=== PATIENT | male | born 1945 | race African-American/Black ===

== ENCOUNTER 2018-05-22 15:24 | Inpatient (IN) | payer MEDICARE ==
[2018-05-22 16:22] LABS: #Lymphocytes 0.8 thou/uL (1.20-3.40); #Monocytes 0.1 thou/uL (0.11-0.59); #Neutrophils 7.5 thou/uL (1.40-6.50); %Basophils 0.3 % (0.0-1.0); %Eosinophils 0.5 % (0.0-10.0); %Lymphocytes 9.1 % (21.0-51.0); %Monocytes 1.5 % (0.0-10.0); %Neutrophils 88.6 % (42.0-75.0); Hemoglobin 12.2 g/dL (14.0-18.0); Mean Corpuscular HGB CONC 31.4 g/dL (32.0-36.0); Mean Corpuscular Hemoglobin 28.3 pg (27.0-31.0); Mean Corpuscular Volume 90.2 fL (78.0-98.0); Mean Platelet Volume 9.6 fL (7.4-10.4); Platelet Count 192 thou/uL (130-400); RBC Distribution Width 14.5 % (11.5-14.5); White Blood Cell (WBC) Count 8.5 thou/uL (4.8-10.8)
--- NOTE | 2018-05-22 16:26 | RAD ---
F2 views chest. HISTORY: Dyspnea. PA and lateral views of the chest is obtained on 05/22/2018. Comparison made to an AP view of the ches t from earlier in the day. Cardiomegaly seen. Pulmonary vascular congestion seen. Calcified aorta is seen. The lungs are well ae rated. No evidence of acute intrathoracic abnormality seen. IMPRESSION: Cardiomegaly and pulmonary vascular congestion. Findings compatible with congestive heart failure.
[2018-05-22 16:46] LABS: ALT (SGPT) 13 U/L (8-55); AST (SGOT) 16 U/L (5-34); Albumin 3.3 g/dL (3.4-4.8); Alkaline Phosphatase 149 U/L (40-150); Anion Gap 12 mmol/L (10-20); BUN (Urea Nitrogen) 29 mg/dL (8.4-25.7); Bilirubin, Total 0.5 mg/dL (0.2-1.2); Calc. Creatinine Clearance 0 mL/min (70-130); Calcium 7.9 mg/dL (7.8-10.44); Carbon Dioxide 32 mmol/L (23-31); Chloride 102 mmol/L (98-107); Estimated GFR-MDRD 26; Globulin 3.9 g/dL (2.4-3.5); Glucose 157 mg/dL (83-110); Potassium 4.9 mmol/L (3.5-5.1); Protein, Total 7.2 g/dL (5.8-8.1); Sodium 141 mmol/L (136-145)
[2018-05-22] MEDS ORDERED: Nitroglycerin 2% Ointment 1 INCH/1 GM Packet ONE (18:24)
--- NOTE | 2018-05-22 19:25 | HP ---
PRIMARY CARE PHYSICIAN: Carina Asencio MD CHIEF COMPLAINT: Shortness of breath and cough. HISTORY OF PRESENT ILLNESS: This is a 72-year-old Afro-Namibian male with a known history of obesity, obstructive sleep apnea, and COPD, resulting in right-sided heart failure and diastolic congestive heart failure, also with diabetes mellitus type 2. The patient reports that he wanted to try getting off his medicines 3 months ago. Says that he would get shakiness if he took some, but he is not sure, which 1 was causing the shakiness. So, he stopped taking them and states he is okay for awhile. For the last week or 2, he has had increased shortness of breath and cough. He was using his nebulizer at home; however, the stem-line broke, and so he has not had any medicines at all for the last couple of weeks. The patient was seen in the [place] [facility]. There, he was found to be tachycardic and with saturations dropping to the low 90s with some tachypnea, so he is put on 2 L of oxygen and brought his oxygen up to near 100. His blood pressure was significantly elevated as well. The patient was noted to have wheezing and significant lower extremity edema. Brain natriuretic peptide was significantly elevated above his previous and his creatinine was also elevated up into the 3s. He was given Lasix, Solu-Medrol, and DuoNeb there. He is feeling better. He also had a dose of Lovenox due to the persistent tachycardia, presumably due to concern for possible PE, though no D-dimer was ever done. The patient was then transferred here for admission. PAST MEDICAL HISTORY: 1. Diabetes mellitus type 2, on oral hypoglycemics only. 2. Diastolic congestive heart failure with right-sided failure from pulmonary hypertension. 3. Hyperlipidemia. 4. Hypertension. 5. Chronic obstructive pulmonary disease. 6. Obstructive sleep apnea. 7. Chronic renal failure previously stage 2, though we do not have recent labs until his significant elevations here. 8. Gout. 9. Chronic respiratory failure with hypoxemia on home O2 that he uses just as needed. 10. Benign prostatic hyperplasia. 11. Longstanding history of noncompliance. PAST SURGICAL HISTORY: Cholecystectomy in 2010 and hernia repair in 2009 and 2010. SOCIAL HISTORY: The patient is a common-law . He smokes 1 pack every 2 to 3 days. Has smoked for many decades. He reports that he used to drink a lot of alcohol, was stopped back in the 1980s. Denies any recent use. No illicit drug use. FAMILY HISTORY: Mother had pulmonary disease. No other known family history. ALLERGIES: NO KNOWN DRUG ALLERGIES. CURRENT MEDICATIONS: None. REVIEW OF SYSTEMS: CONSTITUTIONAL: No fevers. He does get intermittent chills, but this is chronic for him. EYES: No double vision or blurred vision. ENT: He has had a little drainage for the last day. No nasal congestion. No sore throat. CARDIOVASCULAR: No chest pain. No palpitations or racing heart. PULMONARY: See HPI. GASTROINTESTINAL: No abdominal pain. No nausea or vomiting. No diarrhea or constipation. GENITOURINARY: No dysuria or hematuria. MUSCULOSKELETAL: No muscle aches or joint pains. SKIN: No rashes or lesions. NEUROLOGIC: No numbness, tingling, or focal weakness. PHYSICAL EXAMINATION: VITAL SIGNS: Blood pressure 177/115, pulse 120, respirations 20, temperature 97.9, and O2 saturation 98% on 2 L of oxygen. GENERAL: This is a well-developed, obese Afro-Namibian male, in no acute distress. HEENT: Pupils are equal, round, and reactive to light. Oropharynx is clear without lesions, erythema, or exudate. NECK: Supple. No lymphadenopathy. No thyroid nodules or enlargement. He does have some JVD. HEART: Regular rhythm. He is tachycardic. No murmurs. LUNGS: He has some scattered wheezes. No crackles or air movement throughout, but no increased work of breathing. ABDOMEN: Soft, obese, and nontender to palpation. Normoactive bowel sounds. No hepatosplenomegaly or other masses. EXTREMITIES: No clubbing or cyanosis. He does have 3+ pitting edema to bilateral lower extremities with chronic edema changes to the skin. SKIN: No other rashes or lesions noted. NEUROLOGIC: He has intact strength and sensation in all extremities. No facial droop. PSYCHIATRIC: Alert and oriented x3. Normal mood and affect. LABORATORY DATA: CBC, grossly normal with no leukocytosis. Complete metabolic panel notable for carbon dioxide of 32, BUN of 29, and creatinine of 2.93 down from 3.02 at the outside emergency room, where he got the Lasix. Most recent number we have before that is in 2017, where it was 2.5 and before that was in the 1.6 range. Glucose was 157. Albumin was 3.3. The rest of the CMP was normal. Cardiac marker sets negative x2. Brain natriuretic peptide 830. EKG, I did review the EKG done in the emergency room, it does show sinus tachycardia with first-degree AV block. Chest x-ray, I did review his chest x-rays done in the emergency room both in [place] and in here, the patient does have an enlarged heart and increased pulmonary vascular markings. No focal infiltrates. No diffuse pulmonary edema. ASSESSMENT AND PLAN: 1. Acute on chronic hypoxic respiratory failure, likely a mixture of chronic obstructive pulmonary disease and congestive heart failure. 2. Acute exacerbation of chronic obstructive pulmonary disease. We will continue patient's steroids, nebulizers, and we will give 5 days of azithromycin. Also encouraged the patient to have family bring his continuous positive airway pressure machine up, so that we can look at it. He has not used it for a while due to that was blowing water into his nose. We will look at it and see we get him using that properly here. We will consult Pulmonology. 3. Acute exacerbation of diastolic congestive heart failure. We will continue Lasix. We will do 40 mg IV twice a day. We will keep a close eye on creatinine as we diurese him. Put him on fluid restriction and salt restricted diet. We will also get an echocardiogram as he has not had 1 in the system in a quite few years and we will have Cardiology consult on his case. 4. Sinus tachycardia, uncertain source as the patient does not appear to be in any pain. He is not hypoxic currently. It could be due to his congestive heart failure exacerbation; however, I am concerned about the possibility of a pulmonary embolism. He has already got a full-dose of Lovenox. Given his creatinine, we may need to switch him to another blood thinner, if he does need to be on chronic anticoagulation. However, for now, I will get a nuclear medicine perfusion scan to see if there is any evidence of pulmonary embolism. 5. Diabetes mellitus type 2, currently not with severely elevated blood sugars, but I expect his blood sugar to go up with the steroids. I will have him restart his Amaryl, which he has been on in the past and we will put him on mild sliding scale, can always increase that if his blood sugars jumped significantly. 6. Acute on chronic renal failure. Uncertain of the patient's baseline, so we can expect any improvement from this during this hospitalization, but I will have Nephrology come and see him. 7. Hypertension, uncontrolled. Due to the patient's congestive heart failure exacerbation along with severe hypertension, I will go ahead and have him put a nitroglycerin paste on his chest wall here in the emergency room. We will restart his hydralazine and clonidine that he had previously been on and we will monitor his blood pressure closely here. We will avoid angiotensin-converting enzyme inhibitors and angiotensin receptor blockers at this time until his creatinine stabilizes and then, we will have Nephrology assess whether he should have those reintroduced at all. 8. Gastrointestinal prophylaxis. Put the patient on Pepcid twice a day. 9. Code status. I did discuss with the patient. He is a full code. Should he be incapacitated, his would be his medical decision maker, her name is Malik Rodríguezl. Of note, they are common-law marriage, so I will have Palliative Care consult with him and assist him with filling out any medical [id number] paperwork that he needs. Job ID: [id number]
[2018-05-22] MEDS ORDERED: Ondansetron ODT 4 MG TAB SL PRN (19:51)
[2018-05-22] MEDS ORDERED: Ondansetron PF 4 MG/2 ML Vial IVP PRN ×2 (19:51→20:02)
[2018-05-22] MEDS ORDERED: Acetaminophen 325 MG TAB PO PRN ×2 (19:51→20:02)
[2018-05-22 19:53] LABS: Troponin I Less than 0.010 ng/mL (< 0.028)
[2018-05-22] MEDS ORDERED: Ondansetron ODT 4 MG TAB PO PRN (20:02)
[2018-05-22] MEDS ORDERED: Acetaminophen 650 MG Suppository PR PRN (20:02)
[2018-05-22] MEDS ORDERED: HumaLOG 300 UNITS/3 ML VIAL SC PRN (20:02)
[2018-05-22] MEDS ORDERED: Senokot S 8.6-50 MG TAB PO PRN (20:02)
[2018-05-22] MEDS ORDERED: Guaifenesin DM 100-10/5 ML UDCUP PO PRN (20:02)
[2018-05-22] MEDS ORDERED: Diltiazem 125 MG in Sodium Chloride 0.9% 100 ML IVPB SCH (20:30)
[2018-05-22] MEDS: Nicotine 14 MG PATCH TD SCH (21:09)
[2018-05-22] MEDS: Heparin 5,000 UNITS/ML VIAL SC SCH (21:10)
[2018-05-22] MEDS: Famotidine 20 MG TAB PO SCH (21:11)
[2018-05-22] MEDS: Azithromycin 500 MG in Sodium Chloride 0.9% 250 ML 250 ML IVPB SCH (21:23)
[2018-05-22] MEDS: methylPREDNISolone Sod Succ 40 MG VIAL IVP SCH (21:25)
[2018-05-22] MEDS: Bacteriostatic Water 30 ML VIAL FS PRN (21:25)
[2018-05-22] MEDS: cloNIDine 0.3 MG TAB PO SCH (22:04)
[2018-05-22] MEDS: hydrALAZINE 25 MG TAB PO SCH (22:04)
[2018-05-22 22:57] LABS: Troponin I 0.019 ng/mL (< 0.028)
[2018-05-23] MEDS: methylPREDNISolone Sod Succ 40 MG VIAL IVP SCH ×4 (05:39→21:54)
[2018-05-23] MEDS: Furosemide 40 MG/4 ML VIAL SLOW IVP SCH ×2 (05:40→14:42)
[2018-05-23 05:44] LABS: #Lymphocytes 0.9 thou/uL (1.20-3.40); #Monocytes 0.1 thou/uL (0.11-0.59); #Neutrophils 6.5 thou/uL (1.40-6.50); %Basophils 0.4 % (0.0-1.0); %Lymphocytes 11.8 % (21.0-51.0); %Monocytes 1.4 % (0.0-10.0); %Neutrophils 86.4 % (42.0-75.0); Hemoglobin 11.6 g/dL (14.0-18.0); Mean Corpuscular HGB CONC 31.8 g/dL (32.0-36.0); Mean Corpuscular Hemoglobin 28.2 pg (27.0-31.0); Mean Corpuscular Volume 88.7 fL (78.0-98.0); Mean Platelet Volume 9.6 fL (7.4-10.4); Platelet Count 206 thou/uL (130-400); RBC Distribution Width 14.4 % (11.5-14.5); Red Blood Cell (RBC) Count 4.12 mill/uL (4.70-6.10); White Blood Cell (WBC) Count 7.5 thou/uL (4.8-10.8)
[2018-05-23 06:02] LABS: Anion Gap 15 mmol/L (10-20); BUN (Urea Nitrogen) 36 mg/dL (8.4-25.7); Calc. Creatinine Clearance 33 mL/min (70-130); Calcium 8.1 mg/dL (7.8-10.44); Carbon Dioxide 29 mmol/L (23-31); Chloride 100 mmol/L (98-107); Estimated GFR-MDRD 25; Glucose 214 mg/dL (83-110); Potassium 5.2 mmol/L (3.5-5.1); Sodium 139 mmol/L (136-145)
--- NOTE | 2018-05-23 07:58 | CON ---
DATE OF CONSULTATION: 05/23/2018 REASON FOR CONSULTATION: COPD exacerbation. HISTORY OF PRESENT ILLNESS: This is a 72-year-old male, who has been to this hospital several times in the past. Over the last several days, he has been developing increasing shortness of breath. He apparently stopped taking his medicine several months ago because he was concerned about leg swelling. He has also stopped using his CPAP at home because he says it causes moisture to be deposited in his nose. He does use home oxygen and he does use inhalers. He is also smoking 1 pack per day. His symptoms are mainly been shortness of breath, wheezing, and leg swelling. PAST MEDICAL HISTORY: 1. Chronic obstructive pulmonary disease. 2. LINDSEY. 3. Diastolic heart failure. 4. Cor pulmonale. 5. Diabetes mellitus type 2. 6. Chronic renal insufficiency. 7. Gout. 8. Benign prostatic hypertrophy. PAST SURGICAL HISTORY: Cholecystectomy and hernia repair. SOCIAL HISTORY: One pack per day smoker. Has smoked almost all of his adult life. Stopped drinking alcohol in the . Does not use illicit drugs. FAMILY MEDICAL HISTORY: Remarkable for COPD in his mother. ALLERGIES: NONE. MEDICATIONS: Prior to admission he used the home oxygen, but I do not think he has been using any other type of medications. REVIEW OF SYSTEMS: He denies any fever, chills, nausea, vomiting, chest pain, hematemesis, melena, hematochezia, hematuria, or dysuria. Remainder of 12-point review of systems are negative. PHYSICAL EXAMINATION: VITAL SIGNS: Temperature 97.5, pulse 111, respirations 20, O2 saturation 95% and blood pressure 136/66. GENERAL: He is easily awakened, alert, oriented, and in no distress. HEENT: Sclerae anicteric. Pupils reactive. Oropharynx, class 4 Mallampati airway with large hypertrophied tongue NECK: No adenopathy, JVD or bruits. LUNGS: He has diffuse expiratory wheezing bilaterally predominantly over the lower aspect of his lungs. CARDIAC: S1-S2, irregularly irregular and slightly tachycardic. ABDOMEN: Soft, obese, nontender, and nondistended. Liver and spleen are not palpable. EXTREMITIES: He has 3+ edema from his knees downward bilaterally. NEUROLOGICAL: He moves all 4 extremities without difficulty. Sensation is fully intact throughout. SKIN: Shows no obvious lesions other than the swelling. LABORATORY DATA: White blood cell count 7.5, hematocrit 36.6, and platelet count 206. Sodium 139, potassium 5.2, chloride 100, CO2 of 29, BUN 36, creatinine 3.1, and glucose 214. BNP level is 830. IMAGING DATA: His chest x-ray shows hyperinflation, right-sided heart enlargement, prominent jonah. ASSESSMENT: 1. Chronic obstructive pulmonary disease with exacerbation. 2. Tobacco abuse. 3. Atrial fibrillation. 4. Question of concurrent congestive heart failure. 5. Cor pulmonale. 6. Obstructive sleep apnea. 7. Medical noncompliance. RECOMMENDATIONS: 1. I agree with the steroids, breathing treatments, and antibiotics for COPD exacerbation. 2. I agree with diuretics for the peripheral edema. 3. Primary care team has ordered a ventilation-perfusion scan to rule out pulmonary embolism. 4. I have changed his breathing treatments to be scheduled rather than p.r.n. 5. I will be happy to follow this patient with you. Job ID: [id number]
[2018-05-23] MEDS ORDERED: Aspirin 81 mg Enteric Coated Tablet PO SCH (09:00)
[2018-05-23] MEDS ORDERED: Prevnar 13-Val Conj/PF 0.5 ML SYRINGE IM ONE (09:00)
[2018-05-23] MEDS: hydrALAZINE 25 MG TAB PO SCH ×3 (09:00→21:39)
[2018-05-23] MEDS: Glimepiride 4 MG TAB PO SCH ×2 (09:00→17:03)
[2018-05-23] MEDS: Heparin 5,000 UNITS/ML VIAL SC SCH ×3 (09:01→21:40)
--- NOTE | 2018-05-23 10:43 | NM ---
FVQ SCAN: HISTORY: Dyspnea, exacerbation of CHF TECHNIQUE: A ventilation/perfusion scan was performed using 8.6 mCi xenon-133 by inhalation for the ventilation study followed by the intravenous administration of 6.3 mCi technetium 99m-MAA for the perfusion scan . CORRELATION: Chest radiograph from previous evening. FINDINGS: Mild inhomogeneity is noted in the tracer distribution to the lung mcgrath bilaterally on ventilation and perfusion scans. No mismatched pleural-based, wedge-shaped, segmental or subsegmental perfusion d efects are identified. There is tracer retention on the washout phase of the ventilation scan, compat ible with COPD. IMPRESSION: Low probably for pulmonary embolism.
[2018-05-23] MEDS: cloNIDine 0.3 MG TAB PO SCH (11:03)
--- NOTE | 2018-05-23 14:51 | CON ---
DATE OF CONSULTATION: 05/23/2018 REASON FOR CONSULTATION: Diastolic congestive heart failure. HISTORY OF PRESENT ILLNESS: Mr. Tripp is a pleasant 72-year-old gentleman previously seen and evaluated in the past by Dr. Wells, now comes in with shortness of breath and wheezing. Mr. Tripp does have a long history of obstructive lung disease. Unfortunately, he continues to smoke over the many years. He also has history of hypertension. The patient and family member are in the room. They said he has been gradually retaining fluid, having worse and worse trouble breathing. He takes a diuretic at home, but said "is not working and it seems to make me nauseated," has not been taking his medicines on a regular basis. Apparently, came to the emergency room with increasing swelling of his lower extremities and increasing difficulty breathing. No chest pain. The patient did have a stress test done in 2013 in our office, which did not show ischemia. PAST MEDICAL HISTORY: 1. History of hypertension, not well controlled. 2. Hyperlipidemia. 3. Diastolic heart failure. 4. COPD. 5. Obstructive sleep apnea. 6. Renal failure. 7. Benign prostatic hypertrophy. 8. Diabetes, on oral hypoglycemics. PAST SURGICAL HISTORY: Previous cholecystectomy. SOCIAL HISTORY: He has common-law marriage. Smokes one pack cigarettes every two days. He said he smoked for many decades. Used to drink significant alcohol, stopped in the . FAMILY HISTORY: Mother with pulmonary disease. ALLERGIES: NONE KNOWN. MEDICATIONS: Not taken any prior to admission. REVIEW OF SYSTEMS: CONSTITUTIONAL: Positive for weakness or fatigue. Vision, no changes. Hearing, no changes. PULMONARY: Positive for shortness of breath and wheezing. CARDIAC: Positive for shortness of breath and wheezing. GASTROINTESTINAL: No nausea, vomiting, or diarrhea. SKIN: No rashes. NEUROLOGIC: No unilateral weakness or numbness. PSYCHIATRIC: No unusual depression or anxiety. HEMATOLOGIC: No unusual bruising. GENITOURINARY: No burning with urination. PHYSICAL EXAMINATION: GENERAL: This is a pleasant 72-year-old gentleman. VITAL SIGNS: He is 5 feet 6 inches tall, 237 pounds, BMI is 38.4. Current blood pressure is 133/70. Family member states that this is low as she can ever remember it. On 05/22, it was 193/93. Pulse is in the 110s. The more recent blood pressure has just been entered and very recently, it is reported as 200/100. HEENT: Eyes, sclerae nonicteric. Mouth, mucous membranes moist. NECK: Supple. No lymphadenopathy. LUNGS: Expiratory wheezing and rhonchi. CARDIAC: Tachycardic at rest. No murmur, rub, or gallop. ABDOMEN: Soft and nontender. EXTREMITIES: There is severe peripheral edema. SKIN: Warm and dry. PERTINENT LABORATORY DATA: Hemoglobin is 11.6. Creatinine is 3.05 with estimated GFR of 25, potassium is 5.2. EKG looks like a sinus tachycardia with a first-degree AV block. Echocardiogram showed ejection fraction 60% to 65%. Enlargement of the right ventricle and right atrium, left ventricular hypertrophy, all compatible with diastolic heart failure. CONCLUSIONS: 1. Diastolic congestive heart failure. 2. History of chronic obstructive pulmonary disease. 3. EKG looks like sinus tachycardia with a first-degree AV block. 4. Renal failure, stage 4 with estimated GFR of 25. 5. Diabetes. 6. Hypertension. PLAN: 1. Continue diuretics. 2. We will stop diltiazem. I do not see really any evidence that I can tell of atrial flutter. There is some consideration about that, but I do not see that. 3. He is on hydralazine. 4. He has to avoid EKATERINA inhibitors and ARB secondary to hyperkalemia and stage IV renal failure. We will be glad to follow with you. Long-term prognosis guarded. Job ID: [id number]
--- NOTE | 2018-05-23 15:34 | PDOC.PN ---
- Subjective Encounter Start Date: 05/23/18 Encounter Start Time: 15:32 Subjective: feels a little better.family at bedside. -: reports legs swelling was "way worse than this" -: denies any chest pain.RN reports low BP this morning - Objective Resuscitation Status - Order Detail: 05/22/18 17:49 Resuscitation Status Routine Resuscitation Status: FULL: Full Resuscitation Discussed with: Patient MAR Reviewed: Yes Vital Signs & Weight: Vital Signs (12 hours) Temp Pulse Pulse Pulse Resp BP BP 05/23/18 14:43 110 H 05/23/18 14:12 110 H 18 05/23/18 12:12 97.9 F 113 H 20 05/23/18 11:55 90 113 H 113/68 05/23/18 11:03 200/99 H 05/23/18 10:14 117 H 16 05/23/18 09:00 106 H 05/23/18 07:49 98.3 F 106 H 20 05/23/18 04:00 97.5 F L 111 H 20 BP BP BP Pulse Ox Pulse Ox 05/23/18 14:43 05/23/18 14:12 92 L 05/23/18 12:12 143/70 H 93 L 05/23/18 11:55 143/70 H 91 L 05/23/18 11:03 05/23/18 10:14 97 05/23/18 09:00 05/23/18 07:49 133/70 96 05/23/18 04:00 136/66 95 Weight Weight 237 lb 11.2 oz I&O: 05/22/18 05/23/18 05/24/18 06:59 06:59 06:59 Intake Total 350 Output Total 250 Balance 100 Result Diagrams: 05/23/18 05:23 05/23/18 05:23 Additional Labs: Accuchecks 05/23/18 05/23/18 05/22/18 10:35 05:20 20:29 POC Glucose 168 H 218 H 222 H Laboratory Tests 05/22/18 05/22/18 05/22/18 12:44 12:44 16:05 Creatinine 3.02 H Troponin I B-Natriuretic Peptide 896.6 H 830.3 H 05/22/18 05/22/18 05/22/18 16:05 16:06 19:11 Creatinine 2.93 H Troponin I 0.014 Less than 0.010 B-Natriuretic Peptide 05/22/18 05/23/18 22:21 05:23 Creatinine 3.05 H Troponin I 0.019 B-Natriuretic Peptide Radiology Reviewed by me: Yes (V/Q-low probability for PE) Phys Exam - Physical Examination Constitutional: NAD HEENT: PERRLA, moist MMs, sclera anicteric, oral pharynx no lesions Neck: no nodes, no JVD, supple, full ROM Respiratory: no wheezing, no rales, no rhonchi, clear to auscultation bilateral Cardiovascular: RRR, no significant murmur, no rub Gastrointestinal: soft, non-tender, no distention, positive bowel sounds Musculoskeletal: pulses present, edema present (+3) Neurological: non-focal, normal sensation, moves all 4 limbs Psychiatric: normal affect, A&O x 3 Skin: no rash Dx/Plan (1) Acute respiratory failure with hypoxia Code(s): J96.01 - ACUTE RESPIRATORY FAILURE WITH HYPOXIA Status: Acute (2) Acute on chronic diastolic CHF, NYHA class 2 and ACC/AHA stage C Code(s): I50.33 - ACUTE ON CHRONIC DIASTOLIC (CONGESTIVE) HEART FAILURE Status : Acute (3) COPD exacerbation Code(s): J44.1 - CHRONIC OBSTRUCTIVE PULMONARY DISEASE W (ACUTE) EXACERBATION Status: Acute (4) Uncontrolled hypertension Code(s): I10 - ESSENTIAL (PRIMARY) HYPERTENSION Status: Acute (5) JOSE ARMANDO (acute kidney injury) Code(s): N17.9 - ACUTE KIDNEY FAILURE, UNSPECIFIED Status: Acute Comment: Suspect CKD 3-4 based on old numbers (6) Hyperkalemia Code(s): E87.5 - HYPERKALEMIA Status: Acute (7) Sinus tachycardia Code(s): R00.0 - TACHYCARDIA, UNSPECIFIED Status: Acute (8) DM2 (diabetes mellitus, type 2) Status: Chronic (9) Obesity (BMI 30-39.9) Code(s): E66.9 - OBESITY, UNSPECIFIED Status: Chronic - Plan plan discussed w/ family, continue antibiotics, PT/OT, respiratory therapy, incentive spirometry, out of bed/ambulate, DVT proph w/SCDs Diurse aggressively .strict I/Os.ECHO done results pending. -: give one dose kayexalate and monitor Potassium & renal Fx. -: restart ASA.statin.restart Clonidine at lower dose.cont solumedrol,nebs,O2. -: last ECHO in 2014 showed Diastolic dysFx. -: no BB d/t ac copd and No EKATERINA-I/ARB d/t jose armando.am labs * .reduce Hydralazine dose to accommodate Clonidine dose for tachycardia Review of Systems - Review of Systems Constitutional: weakness, malaise. negative: fever, chills, sweats, other Respiratory: Shortness of Breath, SOB with Excertion. negative: Cough, Dry, Hemoptysis, Pleuritic Pain, Sputum, Wheezing Cardiovascular: edema. negative: chest pain, palpitations, orthopnea, paroxysmal nocturnal dyspnea, light headedness, other Gastrointestinal: negative: Nausea, Vomiting, Abdominal Pain, Diarrhea, Constipation, Melena, Hematochezia, Other Genitourinary: negative: Dysuria, Frequency, Incontinence, Hematuria, Retention , Other Musculoskeletal: negative: Neck Pain, Shoulder Pain, Arm Pain, Back Pain, Hand Pain, Leg Pain, Foot Pain, Other Neurological: negative: Weakness, Numbness, Incoordination, Change in Speech, Confusion, Seizures, Other - Medications/Allergies Allergies/Adverse Reactions: Allergies Allergy/AdvReac Type Severity Reaction Status Date / Time No Known Allergies Allergy Unverified 03/09/13 15:58 Medications: Current Medications Acetaminophen (Tylenol) 650 mg PO Q4H PRN PRN Reason: Headache/Fever/Mild Pain (1-3) Acetaminophen (Tylenol) 650 mg [place] Q4H PRN PRN Reason: Headache/Fever/Mild Pain (1-3) Albuterol/Ipratropium (Duoneb) 3 ml NEB [id number] [facility] Last Admin: 05/23/18 14:12 Dose: 3 ml Aspirin (Ecotrin) 81 mg PO DAILY [facility] Last Admin: 05/23/18 09:00 Dose: 81 mg Clonidine (Catapres) 0.1 mg PO TID [facility] Dextrose/Water (Dextrose 50%) 25 gm SLOW IVP PRN PRN PRN Reason: Hypoglycemia Famotidine (Pepcid) 20 mg PO Q24HR [facility] Last Admin: 05/22/18 21:11 Dose: 20 mg Furosemide (Lasix) 40 mg SLOW IVP 0600,1400 [facility] Last Admin: 05/23/18 14:42 Dose: 40 mg Glimepiride (Amaryl) 4 mg PO BID-[facility] Last Admin: 05/23/18 09:00 Dose: Not Given Glucagon (Glucagon) 1 mg IM PRN PRN PRN Reason: Hypoglycemia Guaifenesin/Dextromethorphan (Robitussin Dm) 15 ml PO Q4H PRN PRN Reason: Cough Heparin Sodium (Porcine) (Heparin) 5,000 units SC TID [facility] Last Admin: 05/23/18 14:43 Dose: 5,000 units Hydralazine HCl (Apresoline) 100 mg PO TID [facility] Last Admin: 05/23/18 14:43 Dose: 100 mg Azithromycin 500 mg/ Sodium (Chloride) 250 mls @ 250 mls/hr IVPB Q24HR [facility] Last Admin: 05/22/18 21:23 Dose: 250 mls Dextrose/Water (D5w) 1,000 mls @ 0 mls/hr IV .Q0M PRN PRN Reason: Hypoglycemia Insulin Human Lispro (Humalog) 0 units SC .MILD SLIDING SCALE PRN PRN Reason: Mild Correctional Scale Insulin Human Lispro (Humalog) 0 units SC .BEDTIME SLIDING SC PRN PRN Reason: Bedtime Correctional Scale Last Admin: 05/22/18 22:02 Dose: 2 unit Methylprednisolone Sodium Succinate (Solu-Medrol) 40 mg IVP 0300,0900,1500, 2100 [facility] Last Admin: 05/23/18 14:42 Dose: 40 mg Nicotine (Nicoderm Patch) 14 mg TD Q24HR [facility] Last Admin: 05/22/18 21:09 Dose: 14 mg Ondansetron HCl (Zofran Odt) 4 mg PO Q6H PRN PRN Reason: Nausea/Vomiting Ondansetron HCl (Zofran) 4 mg IVP Q6H PRN PRN Reason: Nausea/Vomiting Senna/Docusate Sodium (Senokot S) 2 tab PO BIDPRN PRN PRN Reason: Constipation Sodium Chloride (Flush - Normal Saline) 10 ml IVF Q12HR ISIDRO Sodium Chloride (Flush - Normal Saline) 10 ml IVF PRN PRN PRN Reason: Saline Flush Sterile Water (Bacteriostatic Water) 1 ml FS PRN PRN PRN Reason: RECONSTITUTION Last Admin: 05/22/18 21:25 Dose: 1 ml
[2018-05-23] MEDS ORDERED: cloNIDine 0.1 MG TAB PO SCH (15:45)
[2018-05-23] MEDS ORDERED: hydrALAZINE 25 MG TAB PO SCH (21:00)
[2018-05-23] MEDS: Azithromycin 500 MG in Sodium Chloride 0.9% 250 ML 250 ML IVPB SCH (21:38)
[2018-05-23] MEDS: cloNIDine 0.1 MG TAB PO SCH (21:38)
[2018-05-23] MEDS: Famotidine 20 MG TAB PO SCH (21:40)
[2018-05-23] MEDS: Bacteriostatic Water 30 ML VIAL FS PRN (21:40)
[2018-05-23] MEDS: Nicotine 14 MG PATCH TD SCH (21:41)
[2018-05-24] MEDS: Furosemide 40 MG/4 ML VIAL SLOW IVP SCH ×2 (05:26→14:34)
[2018-05-24] MEDS: methylPREDNISolone Sod Succ 40 MG VIAL IVP SCH ×5 (05:26→20:35)
[2018-05-24 05:50] LABS: Anion Gap 14 mmol/L (10-20); BUN (Urea Nitrogen) 46 mg/dL (8.4-25.7); Calc. Creatinine Clearance 27 mL/min (70-130); Calcium 7.8 mg/dL (7.8-10.44); Carbon Dioxide 29 mmol/L (23-31); Chloride 100 mmol/L (98-107); Estimated GFR-MDRD 19; Glucose 129 mg/dL (83-110); Potassium 4.4 mmol/L (3.5-5.1); Sodium 139 mmol/L (136-145)
[2018-05-24] MEDS: Heparin 5,000 UNITS/ML VIAL SC SCH ×3 (08:29→20:36)
[2018-05-24] MEDS: Allopurinol 300 MG TAB PO SCH (08:30)
[2018-05-24] MEDS: cloNIDine 0.1 MG TAB PO SCH ×3 (08:30→20:36)
[2018-05-24] MEDS: hydrALAZINE 25 MG TAB PO SCH ×2 (08:31→20:36)
[2018-05-24] MEDS: Glimepiride 4 MG TAB PO SCH ×2 (08:31→16:00)
[2018-05-24] MEDS: Atorvastatin Calcium 20 MG TAB PO SCH (08:31)
[2018-05-24] MEDS: Aspirin 325 MG TAB PO SCH (08:31)
[2018-05-24] MEDS ORDERED: methylPREDNISolone Sod Succ 40 MG VIAL IVP SCH (08:49)
[2018-05-24] MEDS ORDERED: Bacteriostatic Water 30 ML VIAL FS PRN (08:57)
[2018-05-24] MEDS ORDERED: Carvedilol 3.125 MG TAB PO SCH (09:00)
--- NOTE | 2018-05-24 09:07 | PRG ---
DATE OF SERVICE: 05/24/2018 SUBJECTIVE: Mr. Tripp is feeling okay, not having chest pain or pressure. He says he has only having a moderate, resolved with the diuretic. OBJECTIVE: VITAL SIGNS: His blood pressure 170/80 and pulse is 110, looks like it is sinus with a first-degree AV block on the monitor. LUNGS: Clear. There is not any wheezing today. CARDIAC: Tachycardic. ABDOMEN: Soft and nontender. EXTREMITIES: Still severe edema. PERTINENT LABORATORIES: Creatinine is 3.77, estimated GFR is 19. ASSESSMENT: 1. Diastolic heart failure, severe. 2. Sinus tachycardia. 3. COPD. 4. Stage 4 renal failure. Estimated GFR is 19. PLAN: Continue diuretic therapy really not any other further options. I suspect the patient ultimately may end up on dialysis. Job ID: [id number]
--- NOTE | 2018-05-24 09:12 | PRG ---
DATE OF SERVICE: 05/24/2018 SUBJECTIVE: The patient feels better today. He has been up, walking around. OBJECTIVE: VITAL SIGNS: Temperature 97.5, pulse 120, respirations 17, O2 saturation 100%, blood pressure 171/80. HEENT: Unremarkable. NECK: No JVD. LUNGS: Bilateral expiratory wheezing. CARDIAC: S1 and S2, regular. ABDOMEN: Soft. EXTREMITIES: No edema. LABORATORY DATA: Sodium 139, potassium 4.4, chloride 100, CO2 of 29, BUN 46, creatinine 3.7, glucose 129. BNP 837. ASSESSMENT: 1. Chronic obstructive pulmonary disease with exacerbation. 2. Diastolic cardiac dysfunction. 3. Tobacco abuse. 4. Underlying obstructive sleep apnea. PLAN: 1. Continue steroids, nebulization treatments, and antibiotics. 2. Continue diuresis. 3. Resume CPAP when he goes home. 4. I will go ahead and reduce his steroid dose. Job ID: [id number]
--- NOTE | 2018-05-24 13:15 | CON ---
DATE OF CONSULTATION: REASON FOR CONSULTATION: Elevated creatinine. HISTORY OF PRESENT ILLNESS: The patient is a very pleasant 72-year-old gentleman presented to the hospital 2 days ago with a history of shortness of breath and cough. The patient's creatinine was 1.6 in 2016, which raised to 2.5 in 2017 and was 3 today. It has gradually increased to 3.7. The patient denies any nausea, vomiting, or chest pain. PAST MEDICAL HISTORY: Diabetes mellitus, congestive heart failure, hypertension, COPD, obstructive sleep apnea, gout, and history of noncompliance. PAST SURGICAL HISTORY: Cholecystectomy and hernia repair. SOCIAL HISTORY: No alcohol use. FAMILY HISTORY: Negative for ESRD. ALLERGIES: REVIEWED. HOME MEDICATIONS: Reviewed. REVIEW OF SYSTEMS: 15-point review of system was performed and negative except for what was noted above. GENERAL: HEAD: NECK: No swelling or lumps. NOSE: No epistaxis or discharge. EYES: No diplopia or pain. RESPIRATORY: CARDIOVASCULAR: GASTROINTESTINAL: /PRESS OPERATOR: MUSCULOSKELETAL: No joint pain. NEUROPSYCHIATRIC SYSTEMS: No suicidal ideation. No ideation. SKIN: Denies any rash or ulcer. CONSTITUTIONAL: No fever or chills. PHYSICAL EXAMINATION: GENERAL: The patient is awake and alert. VITAL SIGNS: Afebrile, pulse 113, breathing 16, and blood pressure 123/69. GENERAL APPEARANCE AND MENTAL STATUS: Fair. HEAD/NECK: Normocephalic. Atraumatic. EYES: EOMI. No deformity. EARS: Clear. No ulcers. NOSE: Intact. No lesions. MOUTH: Clear. No discharge. THROAT: Clear. No exudate. LUNGS: Clear. No crackles. CARDIAC: S1, S2. No rub. ABDOMEN: Benign. Bowel sounds positive. GENITALIA/RECTUM: Segura absent. BACK/EXTREMITIES: The patient has 3+ edema. NEUROLOGICAL: Alert and motor intact. SKIN: LYMPHATICS: LABORATORY DATA: Labs show creatinine 3.7. ASSESSMENT: 1. Acute kidney injury with chronic kidney disease stage 4 due to progressive diabetes mellitus and congestive heart failure. No indication for dialysis. 2. Hypertension, stable. 3. Anemia, stable. 4. Medication based on GFR appropriate. I will order renal imaging and lab studies. Job ID: [id number]
--- NOTE | 2018-05-24 13:56 | PDOC.PN ---
- Subjective Encounter Start Date: 05/24/18 Encounter Start Time: 13:54 Subjective: feels better but still weak and difficulty w moving around.easily gets SOB -: no CP/leg swelling about the same as yesterday but better than before admit - Objective Resuscitation Status - Order Detail: 05/22/18 17:49 Resuscitation Status Routine Resuscitation Status: FULL: Full Resuscitation Discussed with: Patient MAR Reviewed: Yes Vital Signs & Weight: Vital Signs (12 hours) Temp Pulse Pulse Pulse Resp BP BP 05/24/18 11:35 97.3 F L 109 H 16 05/24/18 11:22 109 H 115 H 123/69 118/73 05/24/18 10:47 113 H 16 05/24/18 09:15 120 H 77 140/63 140/66 05/24/18 08:40 116 H 90 160/77 H 05/24/18 07:15 97.5 F L 120 H 17 05/24/18 07:03 05/24/18 07:02 100 16 05/24/18 04:00 97.9 F 114 H 20 BP Pulse Ox Pulse Ox Pulse Ox 05/24/18 11:35 123/69 92 L 05/24/18 11:22 92 L 97 05/24/18 10:47 05/24/18 09:15 92 L 92 L 05/24/18 08:40 92 L 92 L 05/24/18 07:15 171/80 H 100 05/24/18 07:03 92 L 05/24/18 07:02 05/24/18 04:00 135/64 92 L Weight Weight 239 lb 3 oz I&O: 05/23/18 05/24/18 05/25/18 06:59 06:59 06:59 Intake Total 350 1270 Output Total 250 1270 Balance 100 0 Result Diagrams: 05/23/18 05:23 05/24/18 05:19 Additional Labs: Accuchecks 05/24/18 05/24/18 05/23/18 11:25 05:34 20:14 POC Glucose 120 H 114 H 193 H 05/23/18 16:40 POC Glucose 201 H Microbiology 05/22/18 13:32 Nasal swab Influenza Types A,B Direct EIA - Final Laboratory Tests 05/22/18 05/22/18 05/23/18 16:05 16:05 05:23 Potassium 4.9 5.2 H Creatinine 2.93 H 3.05 H B-Natriuretic Peptide 830.3 H 05/24/18 05/24/18 05:19 05:19 Potassium 4.4 Creatinine 3.77 H B-Natriuretic Peptide 837.5 H Phys Exam - Physical Examination Constitutional: NAD HEENT: PERRLA, moist MMs, sclera anicteric, oral pharynx no lesions Neck: no nodes, no JVD, supple, full ROM Respiratory: no wheezing, no rales, no rhonchi, clear to auscultation bilateral reduced at bases Cardiovascular: RRR, no significant murmur Gastrointestinal: soft, non-tender, no distention, positive bowel sounds Musculoskeletal: pulses present, edema present (+3 b/l Legs) Neurological: non-focal, normal sensation, moves all 4 limbs Psychiatric: normal affect, A&O x 3 Dx/Plan (1) Acute respiratory failure with hypoxia Code(s): J96.01 - ACUTE RESPIRATORY FAILURE WITH HYPOXIA Status: Acute (2) Acute on chronic diastolic CHF, NYHA class 2 and ACC/AHA stage C Code(s): I50.33 - ACUTE ON CHRONIC DIASTOLIC (CONGESTIVE) HEART FAILURE Status : Acute (3) COPD exacerbation Code(s): J44.1 - CHRONIC OBSTRUCTIVE PULMONARY DISEASE W (ACUTE) EXACERBATION Status: Acute (4) Uncontrolled hypertension Code(s): I10 - ESSENTIAL (PRIMARY) HYPERTENSION Status: Acute (5) JOSE ARMANDO (acute kidney injury) Code(s): N17.9 - ACUTE KIDNEY FAILURE, UNSPECIFIED Status: Acute Comment: Suspect CKD 3-4 based on old numbers (6) Hyperkalemia Code(s): E87.5 - HYPERKALEMIA Status: Acute Comment: improved (7) Sinus tachycardia Code(s): R00.0 - TACHYCARDIA, UNSPECIFIED Status: Acute (8) DM2 (diabetes mellitus, type 2) Status: Chronic (9) Obesity (BMI 30-39.9) Code(s): E66.9 - OBESITY, UNSPECIFIED Status: Chronic - Plan continue antibiotics, PT/OT, respiratory therapy, incentive spirometry, out of bed/ambulate, DVT proph w/SCDs HR still fast but sinus.likely d/t steroids-will reduce dose -: add coreg .already on clonidine TID as started yesterday.monitor -: No EKATERINA-I/ARB due to JOSE ARMANDO. -: will consult nephrology given Worsening Renal Fx. Potassium has improved. -: Jun try 1 small dose of zaroxolyn.strict I/os * .change ABx to Po and monitor clinically * cont nebs.o2 prn * OP CR and HF clinic set up in process. pt educated * tobacco abuse counselling done * am labs. * avoid nephrotoxins Review of Systems - Review of Systems Constitutional: weakness, malaise. negative: fever, chills, sweats, other Respiratory: SOB with Excertion. negative: Cough, Dry, Shortness of Breath, Hemoptysis, Pleuritic Pain, Sputum, Wheezing Cardiovascular: edema. negative: chest pain, palpitations, orthopnea, paroxysmal nocturnal dyspnea, light headedness, other Gastrointestinal: negative: Nausea, Vomiting, Abdominal Pain, Diarrhea, Constipation, Melena, Hematochezia, Other Genitourinary: negative: Dysuria, Frequency, Incontinence, Hematuria, Retention , Other Musculoskeletal: negative: Neck Pain, Shoulder Pain, Arm Pain, Back Pain, Hand Pain, Leg Pain, Foot Pain, Other Skin: negative: Rash, Lesions, Gee, Bruising, Other Neurological: negative: Weakness, Numbness, Incoordination, Change in Speech, Confusion, Seizures, Other - Medications/Allergies Allergies/Adverse Reactions: Allergies Allergy/AdvReac Type Severity Reaction Status Date / Time No Known Allergies Allergy Unverified 03/09/13 15:58 Medications: Current Medications Acetaminophen (Tylenol) 650 mg PO Q4H PRN PRN Reason: Headache/Fever/Mild Pain (1-3) Acetaminophen (Tylenol) 650 mg [place] Q4H PRN PRN Reason: Headache/Fever/Mild Pain (1-3) Albuterol/Ipratropium (Duoneb) 3 ml NEB [id number] [facility] Last Admin: 05/24/18 10:47 Dose: 3 ml Allopurinol (Zyloprim) 300 mg PO DAILY [facility] Last Admin: 05/24/18 08:30 Dose: 300 mg Aspirin (Aspirin) 325 mg PO DAILY [facility] Last Admin: 05/24/18 08:31 Dose: 325 mg Atorvastatin Calcium (Lipitor) 20 mg PO DAILY [facility] Last Admin: 05/24/18 08:31 Dose: 20 mg Azithromycin (Zithromax) 250 mg PO DAILY [facility] Stop: 05/28/18 09:01 Carvedilol (Coreg) 6.25 mg PO [facility] Clonidine (Catapres) 0.1 mg PO TID [facility] Last Admin: 05/24/18 08:30 Dose: 0.1 mg Dextrose/Water (Dextrose 50%) 25 gm SLOW IVP PRN PRN PRN Reason: Hypoglycemia Famotidine (Pepcid) 20 mg PO Q24HR [facility] Last Admin: 05/23/18 21:40 Dose: 20 mg Furosemide (Lasix) 40 mg SLOW IVP 0600,1400 [facility] Last Admin: 05/24/18 05:26 Dose: 40 mg Glimepiride (Amaryl) 4 mg PO BID-[facility] Last Admin: 05/24/18 08:31 Dose: 4 mg Glucagon (Glucagon) 1 mg IM PRN PRN PRN Reason: Hypoglycemia Guaifenesin/Dextromethorphan (Robitussin Dm) 15 ml PO Q4H PRN PRN Reason: Cough Heparin Sodium (Porcine) (Heparin) 5,000 units SC TID [facility] Last Admin: 05/24/18 08:29 Dose: 5,000 units Hydralazine HCl (Apresoline) 50 mg PO BID [facility] Last Admin: 05/24/18 08:31 Dose: 50 mg Dextrose/Water (D5w) 1,000 mls @ 0 mls/hr IV .Q0M PRN PRN Reason: Hypoglycemia Insulin Human Lispro (Humalog) 0 units SC .MILD SLIDING SCALE PRN PRN Reason: Mild Correctional Scale Insulin Human Lispro (Humalog) 0 units SC .BEDTIME SLIDING SC PRN PRN Reason: Bedtime Correctional Scale Last Admin: 05/22/18 22:02 Dose: 2 unit Methylprednisolone Sodium Succinate (Solu-Medrol) 20 mg IVP 0300,0900,1500, 2100 [facility] Last Admin: 05/24/18 09:07 Dose: Not Given Metolazone (Zaroxolyn) 2.5 mg PO ONE [facility] Nicotine (Nicoderm Patch) 14 mg TD Q24HR [facility] Last Admin: 05/23/18 21:41 Dose: 14 mg Ondansetron HCl (Zofran Odt) 4 mg PO Q6H PRN PRN Reason: Nausea/Vomiting Ondansetron HCl (Zofran) 4 mg IVP Q6H PRN PRN Reason: Nausea/Vomiting Senna/Docusate Sodium (Senokot S) 2 tab PO BIDPRN PRN PRN Reason: Constipation Sodium Chloride (Flush - Normal Saline) 10 ml IVF Q12HR [facility] Last Admin: 05/24/18 08:32 Dose: 10 ml Sodium Chloride (Flush - Normal Saline) 10 ml IVF PRN PRN PRN Reason: Saline Flush Sterile Water (Bacteriostatic Water) 1 ml FS PRN PRN PRN Reason: RECONSTITUTION Last Admin: 05/23/18 21:40 Dose: 1 ml Sterile Water (Bacteriostatic Water) 1 ml FS PRN PRN PRN Reason: RECONSTITUTION
[2018-05-24] MEDS ORDERED: Metolazone 5 MG TAB PO SCH (14:00)
--- NOTE | 2018-05-24 15:29 | ULT ---
BILATERAL RENAL ULTRASOUND: Date: 05/24/18 HISTORY: Acute renal insufficiency. COMPARISON: 06/26/15 CT examination done at [place]. Review is also made of a CT angio of the chest of 04/06/13. Real-time imaging of the right and left kidneys were performed. The right kidney measures 10.1 cm. Th e left kidney measures 10.0 cm in length. No signs of obstruction. Small hypoechoic exophytic area of the superior pole of the right kidney compatible with a cyst measuring 1.3 cm is similar in size to a previous CT of 2016. The bladder region appears unremarkable. IMPRESSION: Small exophytic cyst upper pole right kidney. POS: [facility]
[2018-05-24] MEDS: Carvedilol 6.25 MG TAB PO SCH (16:00)
[2018-05-24] MEDS: Famotidine 20 MG TAB PO SCH (20:36)
[2018-05-24] MEDS: Nicotine 14 MG PATCH TD SCH (20:56)
[2018-05-25] MEDS: methylPREDNISolone Sod Succ 40 MG VIAL IVP SCH ×4 (03:15→21:07)
[2018-05-25] MEDS: Furosemide 40 MG/4 ML VIAL SLOW IVP SCH (05:57)
[2018-05-25 07:13] LABS: Anion Gap 17 mmol/L (10-20); BUN (Urea Nitrogen) 62 mg/dL (8.4-25.7); Calc. Creatinine Clearance 23 mL/min (70-130); Calcium 7.5 mg/dL (7.8-10.44); Carbon Dioxide 29 mmol/L (23-31); Chloride 99 mmol/L (98-107); Estimated GFR-MDRD 16; Glucose 175 mg/dL (83-110); Potassium 5.3 mmol/L (3.5-5.1); Sodium 140 mmol/L (136-145)
[2018-05-25] MEDS: Heparin 5,000 UNITS/ML VIAL SC SCH ×3 (08:30→21:06)
[2018-05-25] MEDS: cloNIDine 0.1 MG TAB PO SCH (08:31)
[2018-05-25] MEDS: Glimepiride 4 MG TAB PO SCH ×2 (08:31→16:55)
[2018-05-25] MEDS: hydrALAZINE 25 MG TAB PO SCH ×2 (08:31→21:06)
[2018-05-25] MEDS: Atorvastatin Calcium 20 MG TAB PO SCH (08:31)
[2018-05-25] MEDS: Azithromycin 250 MG TAB PO SCH (08:31)
[2018-05-25] MEDS: Aspirin 325 MG TAB PO SCH (08:31)
[2018-05-25] MEDS: Carvedilol 6.25 MG TAB PO SCH ×2 (08:31→16:55)
[2018-05-25] MEDS: Allopurinol 300 MG TAB PO SCH (08:31)
[2018-05-25] MEDS ORDERED: cloNIDine 0.1 MG TAB PO SCH (08:45)
[2018-05-25] MEDS: HumaLOG 300 UNITS/3 ML VIAL SC PRN (11:21)
--- NOTE | 2018-05-25 11:44 | PRG ---
DATE OF SERVICE: 05/25/2018 SUBJECTIVE: A 72-year-old gentleman being seen for acute kidney injury. The patient has not made any significant amount of urine. He complains of dyspnea on minimal exertion and is hyperkalemic. OBJECTIVE: CONSTITUTIONAL: Patient is resting, in [id number] distress. VITAL SIGNS: Afebrile, pulse is 113, blood pressure 144/75. GENERAL APPEARANCE AND MENTAL STATUS: Fair. HEAD/NECK: Normocephalic. Atraumatic. EYES: EOMI. No deformity. EARS: Clear. No ulcers. NOSE: Intact. No lesions. MOUTH: Clear. No discharge. THROAT: Clear. No exudate. LUNGS: Clear. No crackles. CARDIAC: S1, S2. No rub. ABDOMEN: Benign. Bowel sounds positive. GENITALIA/RECTUM: Segura absent. BACK/EXTREMITIES: Edema 3+. NEUROLOGICAL: Alert and motor intact. SKIN: LYMPHATICS: LABORATORY DATA: Hemoglobin 11.6. Potassium 5.3, creatinine 4.4. ASSESSMENT AND PLAN: 1. Chronic kidney disease stage 5 with acute kidney injury and hyperkalemia. Plan dialysis. Risks versus benefits were discussed. 2. Hypertensive. 3. Anemia, stable. 4. Medication based on GFR appropriate. Job ID: [id number] [facility]
[2018-05-25 11:46] LABS: Anion Gap 18 mmol/L (10-20); BUN (Urea Nitrogen) 66 mg/dL (8.4-25.7); Calc. Creatinine Clearance 23 mL/min (70-130); Calcium 7.5 mg/dL (7.8-10.44); Carbon Dioxide 31 mmol/L (23-31); Chloride 98 mmol/L (98-107); Estimated GFR-MDRD 16; Glucose 193 mg/dL (83-110); Potassium 4.8 mmol/L (3.5-5.1); Sodium 142 mmol/L (136-145)
--- NOTE | 2018-05-25 14:08 | PDOC.PN ---
- Subjective Encounter Start Date: 05/25/18 Encounter Start Time: 14:06 Subjective: feels "good".seen walking in hallways and was visibly SOB -: denies any Chest pain.was ot wearing oxygen -: extensive education done w regards to CHF and renal Failure - Objective Resuscitation Status - Order Detail: 05/22/18 17:49 Resuscitation Status Routine Resuscitation Status: FULL: Full Resuscitation Discussed with: Patient MAR Reviewed: Yes Vital Signs & Weight: Vital Signs (12 hours) Temp Pulse Resp BP BP Pulse Ox 05/25/18 11:20 97.4 F L 113 H 16 137/82 100 05/25/18 11:05 113 H 16 05/25/18 07:44 99 05/25/18 07:43 115 H 16 05/25/18 07:05 97.3 F L 113 H 16 144/75 H 95 05/25/18 04:26 97.2 F L 107 H 17 151/75 H 93 L Weight Weight 239 lb 3 oz I&O: 05/24/18 05/25/18 05/26/18 06:59 06:59 06:59 Intake Total 1270 1320 Output Total 1270 150 Balance 0 1170 Result Diagrams: 05/23/18 05:23 05/25/18 11:19 Additional Labs: Accuchecks 05/25/18 05/25/18 05/24/18 10:29 05:42 20:45 POC Glucose 180 H 159 H 181 H 05/24/18 16:59 POC Glucose 123 H Laboratory Tests 05/22/18 05/23/18 05/24/18 16:05 05:23 05:19 Potassium 4.9 5.2 H 4.4 Creatinine 2.93 H 3.05 H 3.77 H 05/25/18 06:12 Potassium 5.3 H Creatinine 4.47 H Phys Exam - Physical Examination Constitutional: NAD HEENT: PERRLA, moist MMs, sclera anicteric, oral pharynx no lesions Neck: no nodes Respiratory: no rales, no rhonchi, wheezing present Cardiovascular: RRR, no significant murmur Gastrointestinal: soft, non-tender, no distention, positive bowel sounds Musculoskeletal: edema present Neurological: non-focal, normal sensation, moves all 4 limbs Psychiatric: normal affect, A&O x 3 Skin: no rash Dx/Plan (1) JOSE ARMANDO (acute kidney injury) Code(s): N17.9 - ACUTE KIDNEY FAILURE, UNSPECIFIED Status: Acute Comment: Suspect Cardio-renal Vs ATN . Also some CKD 3-4 based on old numbers (2) Acute on chronic diastolic CHF, NYHA class 2 and ACC/AHA stage C Code(s): I50.33 - ACUTE ON CHRONIC DIASTOLIC (CONGESTIVE) HEART FAILURE Status : Acute (3) COPD exacerbation Code(s): J44.1 - CHRONIC OBSTRUCTIVE PULMONARY DISEASE W (ACUTE) EXACERBATION Status: Acute (4) Acute respiratory failure with hypoxia Code(s): J96.01 - ACUTE RESPIRATORY FAILURE WITH HYPOXIA Status: Acute (5) Uncontrolled hypertension Code(s): I10 - ESSENTIAL (PRIMARY) HYPERTENSION Status: Acute (6) Hyperkalemia Code(s): E87.5 - HYPERKALEMIA Status: Acute Comment: improved (7) Sinus tachycardia Code(s): R00.0 - TACHYCARDIA, UNSPECIFIED Status: Acute Comment: Started BB yesterday.Increase clonidine (8) DM2 (diabetes mellitus, type 2) Status: Chronic (9) Obesity (BMI 30-39.9) Code(s): E66.9 - OBESITY, UNSPECIFIED Status: Chronic - Plan PT/OT, respiratory therapy, incentive spirometry, out of bed/ambulate, DVT proph w/SCDs pt has failed to have good respone w diuretics & developed worsening JOSE ARMANDO -: discussed HD & pt has poor insight into the disease process -: Defer to Nephro & cardiology for further recs -: hold off any diuretics for now.monitor Renal fx -: Increase clonidine as still tachycardic.Increase BB as needed . * .no EKATERINA-I/ARB due to JOSE ARMANDO * am labs * nori give one dose kayexalate for hyperkalemia * Hd stable fortunately * Review of Systems - Review of Systems Constitutional: negative: fever, chills, sweats, weakness, malaise, other ENT: negative: Ear Pain, Ear Discharge, Nose Pain, Nose Discharge, Nose Congestion, Mouth Pain, Mouth Swelling, Throat Pain, Throat Swelling, Other Respiratory: SOB with Excertion. negative: Cough, Dry, Shortness of Breath, Hemoptysis, Pleuritic Pain, Sputum, Wheezing Cardiovascular: negative: chest pain, palpitations, orthopnea, paroxysmal nocturnal dyspnea, edema, light headedness, other Gastrointestinal: negative: Nausea, Vomiting, Abdominal Pain, Diarrhea, Constipation, Melena, Hematochezia, Other Genitourinary: negative: Dysuria, Frequency, Incontinence, Hematuria, Retention , Other Musculoskeletal: negative: Neck Pain, Shoulder Pain, Arm Pain, Back Pain, Hand Pain, Leg Pain, Foot Pain, Other Skin: negative: Rash, Lesions, Gee, Bruising, Other Neurological: negative: Weakness, Numbness, Incoordination, Change in Speech, Confusion, Seizures, Other - Medications/Allergies Allergies/Adverse Reactions: Allergies Allergy/AdvReac Type Severity Reaction Status Date / Time No Known Allergies Allergy Unverified 03/09/13 15:58 Medications: Current Medications Acetaminophen (Tylenol) 650 mg PO Q4H PRN PRN Reason: Headache/Fever/Mild Pain (1-3) Acetaminophen (Tylenol) 650 mg [place] Q4H PRN PRN Reason: Headache/Fever/Mild Pain (1-3) Albuterol/Ipratropium (Duoneb) 3 ml NEB [id number] Last Admin: 05/25/18 11:05 Dose: 3 ml Allopurinol (Zyloprim) 300 mg PO DAILY [facility] Last Admin: 05/25/18 08:31 Dose: 300 mg Aspirin (Aspirin) 325 mg PO DAILY [facility] Last Admin: 05/25/18 08:31 Dose: 325 mg Atorvastatin Calcium (Lipitor) 20 mg PO DAILY [facility] Last Admin: 05/25/18 08:31 Dose: 20 mg Azithromycin (Zithromax) 250 mg PO DAILY [facility] Stop: 05/28/18 09:01 Last Admin: 05/25/18 08:31 Dose: 250 mg Carvedilol (Coreg) 6.25 mg PO BID-[facility] Last Admin: 05/25/18 08:31 Dose: 6.25 mg Clonidine (Catapres) 0.2 mg PO TID [facility] Dextrose/Water (Dextrose 50%) 25 gm SLOW IVP PRN PRN PRN Reason: Hypoglycemia Famotidine (Pepcid) 20 mg PO Q24HR [facility] Last Admin: 05/24/18 20:36 Dose: 20 mg Glimepiride (Amaryl) 4 mg PO BID-[facility] Last Admin: 05/25/18 08:31 Dose: 4 mg Glucagon (Glucagon) 1 mg IM PRN PRN PRN Reason: Hypoglycemia Guaifenesin/Dextromethorphan (Robitussin Dm) 15 ml PO Q4H PRN PRN Reason: Cough Heparin Sodium (Porcine) (Heparin) 5,000 units SC TID [facility] Last Admin: 05/25/18 08:30 Dose: 5,000 units Hydralazine HCl (Apresoline) 50 mg PO BID [facility] Last Admin: 05/25/18 08:31 Dose: 50 mg Dextrose/Water (D5w) 1,000 mls @ 0 mls/hr IV .Q0M PRN PRN Reason: Hypoglycemia Insulin Human Lispro (Humalog) 0 units SC .MILD SLIDING SCALE PRN PRN Reason: Mild Correctional Scale Last Admin: 05/25/18 11:21 Dose: 2 unit Insulin Human Lispro (Humalog) 0 units SC .BEDTIME SLIDING SC PRN PRN Reason: Bedtime Correctional Scale Last Admin: 05/22/18 22:02 Dose: 2 unit Methylprednisolone Sodium Succinate (Solu-Medrol) 20 mg IVP 0300,0900,1500, 2100 [facility] Last Admin: 05/25/18 08:29 Dose: 20 mg Nicotine (Nicoderm Patch) 14 mg TD Q24HR [facility] Last Admin: 05/24/18 20:56 Dose: 14 mg Ondansetron HCl (Zofran Odt) 4 mg PO Q6H PRN PRN Reason: Nausea/Vomiting Ondansetron HCl (Zofran) 4 mg IVP Q6H PRN PRN Reason: Nausea/Vomiting Senna/Docusate Sodium (Senokot S) 2 tab PO BIDPRN PRN PRN Reason: Constipation Sodium Chloride (Flush - Normal Saline) 10 ml IVF Q12HR [facility] Last Admin: 05/25/18 08:32 Dose: 10 ml Sodium Chloride (Flush - Normal Saline) 10 ml IVF PRN PRN PRN Reason: Saline Flush Sterile Water (Bacteriostatic Water) 1 ml FS PRN PRN PRN Reason: RECONSTITUTION Last Admin: 05/23/18 21:40 Dose: 1 ml Sterile Water (Bacteriostatic Water) 1 ml FS PRN PRN PRN Reason: RECONSTITUTION
[2018-05-25 14:36] LABS: HBSAB Concentration 1.52 mIU/mL; Hep B Surf AB Non-Reactive (NonReactive); Hep C IgG Ab Non-Reactive (NonReactive); Hep C Index 0.09 S/CO (0-0.79)
[2018-05-25 14:37] LABS: HBSAg Index 0.33 S/CO (0-0.99); Hep B Surf Ag Non-Reactive S/CO (NonReactive)
[2018-05-25] MEDS: cloNIDine 0.2 MG TAB PO SCH ×2 (15:07→21:06)
--- NOTE | 2018-05-25 15:19 | ULT ---
BILATERAL UPPER EXTREMITY VEIN MAPPING: Date: 05/25/18 HISTORY: End-stage renal disease; evaluate for dialysis access. FINDINGS: RIGHT UPPER EXTREMITY CEPHALIC VEIN Proximal Arm: 1.5 mm Mid Arm: 2.0 mm Distal Arm: 2.9 mm Antecubital Fossa: 2.3 mm Proximal Forearm: 1.1 mm Mid Forearm: 1.0 mm Distal Forearm: 1.2 mm BASILIC VEIN Proximal Arm: 3.2 mm Mid Arm: 2.9 mm Distal Arm: 1.6 mm Antecubital Fossa: 1.9 mm Proximal Forearm: 1.1 mm Mid Forearm: 1.1 mm Distal Forearm: 1.2 mm LEFT UPPER EXTREMITY CEPHALIC VEIN Proximal Arm: 2.1 mm Mid Arm: 1.6 mm Distal Arm: 2.5 mm Antecubital Fossa: 2.3 mm Proximal Forearm: 2.0 mm Mid Forearm: 1.8 mm Distal Forearm: 1.3 mm BASILIC VEIN Proximal Arm: 4.1 mm Mid Arm: 1.8 mm Distal Arm: 1.3 mm Antecubital Fossa: 1.3 mm Proximal Forearm: 1.4 mm Mid Forearm: 0.6 mm Distal Forearm: 1.2 mm RIGHT BRACHIAL ARTERY: 6.2 mm RIGHT RADIAL ARTERY: 2.5 mm RIGHT ULNAR ARTERY: 1.7 mm LEFT BRACHIAL ARTERY: 5.7 mm LEFT RADIAL ARTERY: 2.5 mm LEFT ULNAR ARTERY: 1.7 mm IMPRESSION: Dialysis access measurements as above. POS: [facility]
--- NOTE | 2018-05-25 15:46 | PDOC.CTH ---
Cardiology Progress Note - Subjective Breathing not significantly improved. Minimal diuresis. - Objective Vital Signs Temp Pulse Resp BP BP Pulse Ox 05/25/18 15:13 92 16 05/25/18 15:05 97.7 F 78 17 129/58 L 97 05/25/18 11:20 97.4 F L 113 H 16 137/82 100 05/25/18 11:05 113 H 16 05/25/18 07:44 99 05/25/18 07:43 115 H 16 05/25/18 07:05 97.3 F L 113 H 16 144/75 H 95 05/25/18 04:26 97.2 F L 107 H 17 151/75 H 93 L Weight 239 lb 3 oz 05/24/18 05/25/18 05/26/18 06:59 06:59 06:59 Intake Total 1270 1320 Output Total 1270 150 Balance 0 1170 - Physical Examination General/Neuro: alert & oriented x3, NAD Neck: no JVD present Lungs: unlabored respirations Heart: RRR Abdomen: NT/ND Extremities: + edema B (1+) - Telemetry Telemetry Rhythm: NSR - Labs Result Diagrams: 05/23/18 05:23 05/25/18 11:19 Troponin/CKMB Troponin I 0.019 ng/mL (< 0.028) 05/22/18 22:21 - Assessment/Plan 1. Acute on chronic diastolic heart failure. 2. COPD 3. CKD stage 5 PLAN: - Not making nay suignificnat amount of urine despite IV lasix. - Nephrology planning on starting dialysis.
[2018-05-25 15:47] LABS: Hep B Core Total Ab Reactive (NonReactive)
[2018-05-25] MEDS ORDERED: CEFAZOLIN 2 GM in Premix Bag 1 BAG IVPB SCH (17:00)
--- NOTE | 2018-05-25 18:10 | PRG ---
DATE OF SERVICE: 05/25/2018 SERVICE: Pulmonary Medicine. INTERVAL HISTORY: The patient is doing okay from respiratory standpoint. His breathing is improving. Denies any current chest pain, fevers, or chills. He has been up walking around. He continues to cough up a little bit of white phlegm, but outside of that, he feels like his strength and everything else is improving. PHYSICAL EXAMINATION: VITAL SIGNS: Afebrile. Pulse 78, blood pressure 129/58, respirations 17, saturation 97% on 2 L nasal cannula. HEENT: Normocephalic, atraumatic. Sclerae white. Conjunctivae pink. Oral mucosa is moist without lesions. LUNGS: Decent air entry. There is a prolonged expiratory phase. Large airway rhonchi and wheezing are appreciated. No polyphonic wheezes appreciated. Dependent crackles are noted. HEART: Normal rate, regular. ABDOMEN: Soft, nontender, nondistended. Bowel sounds are positive. MUSCULOSKELETAL: No cyanosis or clubbing. No pitting in the bilateral lower extremities. NEUROLOGIC: Grossly nonfocal. ASSESSMENT: 1. Acute hypoxic respiratory failure. 2. Chronic obstructive pulmonary disease with acute exacerbation. 3. Ofrup-wg-jhwfliz diastolic heart failure. 4. Chronic kidney disease stage 5. DISCUSSION AND PLAN: The patient is doing okay from respiratory standpoint. At this point, we need to get volume off to optimize his lungs, and heart. The kidneys are preventing this from happening. As such, we are moving towards dialysis. Pulmonary Critical Care will continue to follow along while the patient remains inhouse. We will continue steroids, nebulized medications, and antibiotics. Job ID: [id number] [facility]
[2018-05-25] MEDS ORDERED: Furosemide 100 MG/10 ML VIAL SLOW IVP SCH (18:15)
--- NOTE | 2018-05-25 19:26 | HP ---
HISTORY OF PRESENT ILLNESS: Gareth Tripp is a 72-year-old black male patient, who lives in [place], presents with progressive chronic kidney disease secondary to diabetic and hypertensive nephropathy. I have been asked by Dr. Renae to see him regarding placement of hemodialysis catheter and a primary fistula. Ultrasound vein mapping suggested a vein superior on the left. He is right handed. He has an IV in left wrist and right hand. HOME MEDICATIONS: 1. Aspirin. 2. Clonidine. 3. Furosemide. 4. Atorvastatin. 5. Allopurinol. 6. Nebulizers. 7. Glimepiride. 8. Losartan. 9. Hydralazine. SOCIAL HISTORY: Tobacco, 1/2 pack per day. Alcohol, socially. The patient is common-law . PAST SURGICAL HISTORY: Laparoscopic cholecystectomy, umbilical hernia repair, echocardiogram on 05/23/2018 this hospitalization with 60% to 65% ejection fraction, mild tricuspid and aortic regurgitation, trace mitral regurgitation, moderately enlarged right ventricle, diastolic dysfunction. Dr. Ruiz has seen him in consultation as well as Pulmonary Medicine. Hospitalists have admitted him. PAST MEDICAL HISTORY: 1. Diabetes mellitus type 2, on oral hypoglycemics, which he has discontinued prior to this hospitalization. 2. Diastolic dysfunction with congestive heart failure secondary to diastolic dysfunction and renal disease, end stage, progressive. 3. Hyperlipidemia. 4. Hypertension. 5. COPD. 6. Ongoing tobacco abuse. 7. Sleep apnea. 8. Chronic kidney disease, progressing to end-stage renal disease. 9. BPH. 10. History of noncompliance. REVIEW OF SYSTEMS: Ten-point noncontributory otherwise. PHYSICAL EXAMINATION: VITAL SIGNS: Height 5 feet 6 inches, 239 pounds, 38 BMI. Temperature 97.7, heart rate 92, blood pressure 129/58. HEAD, EARS, EYES, NOSE AND THROAT: Unremarkable. LUNGS: Clear to auscultation. CARDIAC: Regular rate and rhythm without murmur or gallop. ABDOMEN: Soft, slightly obese, nontender. Scars from above surgical history. EXTREMITIES: Unremarkable. Palpable radial pulses bilaterally. He had IV in right hand and left wrist. LABORATORY DATA: White count 7.5, hemoglobin 11.6. Sodium 142, potassium 4.8, creatinine 4.49, GFR 16, and BUN 66. ASSESSMENT AND PLAN: 1. End-stage renal disease. Plan on placement of a hemodialysis catheter and left arm primary fistula. I have discussed this procedure with him. I have answered questions, he has had many. He has asked what will happen if he does not do dialysis. I had a long discussion with him regarding that. 2. Tobacco abuse. 3. Chronic obstructive pulmonary disease. 4. Sleep apnea. 5. Diastolic dysfunction. Normal left ventricular ejection fraction. 6. Hypertension. 7. Metabolic syndrome. 8. Obesity. 9. Ori-pbigitu-rmjzyiuki diabetes mellitus. Job ID: [id number]
[2018-05-25] MEDS: Dextrose 50% Abboject 50 ML SYRINGE SLOW IVP PRN (20:58)
[2018-05-25] MEDS: Famotidine 20 MG TAB PO SCH (21:06)
[2018-05-25] MEDS: Nicotine 14 MG PATCH TD SCH (21:16)
[2018-05-26] MEDS: methylPREDNISolone Sod Succ 40 MG VIAL IVP SCH ×4 (03:36→20:25)
[2018-05-26 06:29] LABS: Anion Gap 15 mmol/L (10-20); BUN (Urea Nitrogen) 67 mg/dL (8.4-25.7); Calc. Creatinine Clearance 24 mL/min (70-130); Calcium 7.3 mg/dL (7.8-10.44); Carbon Dioxide 33 mmol/L (23-31); Chloride 98 mmol/L (98-107); Estimated GFR-MDRD 16; Potassium 4.1 mmol/L (3.5-5.1); Sodium 142 mmol/L (136-145)
[2018-05-26 06:33] LABS: Glucose 51 mg/dL (83-110)
[2018-05-26] MEDS: Glimepiride 4 MG TAB PO SCH ×2 (09:02→16:06)
[2018-05-26] MEDS: Atorvastatin Calcium 20 MG TAB PO SCH (09:03)
[2018-05-26] MEDS: hydrALAZINE 25 MG TAB PO SCH ×2 (09:03→20:26)
[2018-05-26] MEDS: cloNIDine 0.2 MG TAB PO SCH ×3 (09:03→20:26)
[2018-05-26] MEDS: Allopurinol 300 MG TAB PO SCH (09:03)
[2018-05-26] MEDS: Carvedilol 6.25 MG TAB PO SCH ×2 (09:03→17:05)
[2018-05-26] MEDS: Aspirin 325 MG TAB PO SCH (09:03)
[2018-05-26] MEDS: Azithromycin 250 MG TAB PO SCH (09:04)
[2018-05-26] MEDS: Heparin 5,000 UNITS/ML VIAL SC SCH ×3 (09:04→20:25)
--- NOTE | 2018-05-26 11:37 | PRG ---
DATE OF SERVICE: 05/26/2018 SUBJECTIVE: A 72-year-old gentleman, being seen for acute kidney injury. The patient denies any nausea, vomiting, or chest pain. OBJECTIVE: GENERAL: The patient is awake and alert. VITAL SIGNS: Afebrile, pulse 94, breathing 16, blood pressure 177/93. GENERAL APPEARANCE AND MENTAL STATUS: Fair. HEAD/NECK: Normocephalic. Atraumatic. EYES: EOMI. No deformity. EARS: Clear. No ulcers. NOSE: Intact. No lesions. MOUTH: Clear. No discharge. THROAT: Clear. No exudate. LUNGS: Clear. No crackles. CARDIAC: S1, S2. No rub. ABDOMEN: Benign. Bowel sounds positive. GENITALIA/RECTUM: Segura absent. BACK/EXTREMITIES: Lower extremities have 3+ edema. NEUROLOGICAL: Alert and motor intact. ASSESSMENT/RECOMMENDATION: End-stage renal disease. We will plan dialysis. Edema, congestive heart failure. We will give Lasix IV 80 b.i.d. and metolazone 5 mg to reduce edema. We will recheck electrolytes in the morning. Anemia, stable. Medication based on GFR appropriate. Job ID: [id number]
--- NOTE | 2018-05-26 12:02 | PDOC.PN ---
- Subjective Encounter Start Date: 05/26/18 Encounter Start Time: 12:01 Subjective: pt walked this morning & got tired so fell asleep -: reports that he is anxious about getting started on dialysis -: no new events - Objective Resuscitation Status - Order Detail: 05/22/18 17:49 Resuscitation Status Routine Resuscitation Status: FULL: Full Resuscitation Discussed with: Patient AMY Reviewed: Yes Vital Signs & Weight: Vital Signs (12 hours) Temp Pulse Resp BP Pulse Ox 05/26/18 09:03 94 05/26/18 07:50 97.9 F 94 20 177/93 H 99 05/26/18 07:08 100 05/26/18 07:05 94 12 05/26/18 03:40 97.6 F 80 16 119/60 100 05/26/18 01:49 104 H 14 Weight Weight 239 lb 6 oz I&O: 05/25/18 05/26/18 05/27/18 06:59 06:59 06:59 Intake Total 1320 1460 240 Output Total 150 Balance 1170 1460 240 Result Diagrams: 05/23/18 05:23 05/26/18 05:53 Additional Labs: Accuchecks 05/26/18 05/26/18 05/26/18 10:43 06:21 05:34 POC Glucose 89 76 45 L* 05/26/18 05/25/18 05/25/18 00:09 22:01 20:53 POC Glucose 76 122 H 41 L* 05/25/18 16:40 POC Glucose 80 Laboratory Tests 05/25/18 13:16 Hep B Core Total Ab Reactive H Phys Exam - Physical Examination Constitutional: NAD HEENT: PERRLA, moist MMs, sclera anicteric, oral pharynx no lesions Neck: no nodes, no JVD, supple, full ROM Respiratory: no wheezing, no rales, no rhonchi, clear to auscultation bilateral Cardiovascular: RRR, no significant murmur Gastrointestinal: soft, non-tender, no distention, positive bowel sounds Musculoskeletal: no edema, pulses present Neurological: non-focal, normal sensation, moves all 4 limbs Psychiatric: normal affect, A&O x 3 Skin: no rash Dx/Plan (1) JOSE ARMANDO (acute kidney injury) Code(s): N17.9 - ACUTE KIDNEY FAILURE, UNSPECIFIED Status: Acute Comment: Suspect Cardio-renal Vs ATN . Also some CKD 3-4 based on old numbers.To be started on dialysis (2) Acute on chronic diastolic CHF, NYHA class 2 and ACC/AHA stage C Code(s): I50.33 - ACUTE ON CHRONIC DIASTOLIC (CONGESTIVE) HEART FAILURE Status : Acute Comment: cont diuresis (3) COPD exacerbation Code(s): J44.1 - CHRONIC OBSTRUCTIVE PULMONARY DISEASE W (ACUTE) EXACERBATION Status: Acute (4) Acute respiratory failure with hypoxia Code(s): J96.01 - ACUTE RESPIRATORY FAILURE WITH HYPOXIA Status: Acute (5) Uncontrolled hypertension Code(s): I10 - ESSENTIAL (PRIMARY) HYPERTENSION Status: Acute (6) Hyperkalemia Code(s): E87.5 - HYPERKALEMIA Status: Acute Comment: improved (7) Sinus tachycardia Code(s): R00.0 - TACHYCARDIA, UNSPECIFIED Status: Acute Comment: Started BB yesterday.Increase clonidine (8) DM2 (diabetes mellitus, type 2) Status: Chronic (9) Obesity (BMI 30-39.9) Code(s): E66.9 - OBESITY, UNSPECIFIED Status: Chronic - Plan PT/OT, respiratory therapy, incentive spirometry, out of bed/ambulate, DVT proph w/SCDs cont diuresis. dialysis to be started soon -: cont cardioprudent meds. -: no EKATERINA-I/ARB due to JOSE ARMANDO.monitor -: steroids,nebs,O2 prn.supportive care -: am labs * . Review of Systems - Review of Systems Constitutional: weakness. negative: fever, chills, sweats, malaise, other Respiratory: SOB with Excertion. negative: Cough, Dry, Shortness of Breath, Hemoptysis, Pleuritic Pain, Sputum, Wheezing Cardiovascular: edema. negative: chest pain, palpitations, orthopnea, paroxysmal nocturnal dyspnea, light headedness, other Gastrointestinal: negative: Nausea, Vomiting, Abdominal Pain, Diarrhea, Constipation, Melena, Hematochezia, Other Genitourinary: negative: Dysuria, Frequency, Incontinence, Hematuria, Retention , Other Musculoskeletal: negative: Neck Pain, Shoulder Pain, Arm Pain, Back Pain, Hand Pain, Leg Pain, Foot Pain, Other Neurological: negative: Weakness, Numbness, Incoordination, Change in Speech, Confusion, Seizures, Other - Medications/Allergies Allergies/Adverse Reactions: Allergies Allergy/AdvReac Type Severity Reaction Status Date / Time No Known Allergies Allergy Unverified 03/09/13 15:58 Medications: Current Medications Acetaminophen (Tylenol) 650 mg PO Q4H PRN PRN Reason: Headache/Fever/Mild Pain (1-3) Acetaminophen (Tylenol) 650 mg WI Q4H PRN PRN Reason: Headache/Fever/Mild Pain (1-3) Albuterol/Ipratropium (Duoneb) 3 ml NEB [id number] COUNT INCLUDES THE [facility] Last Admin: 05/26/18 07:05 Dose: 3 ml Allopurinol (Zyloprim) 300 mg PO DAILY COUNT INCLUDES THE [facility] Last Admin: 05/26/18 09:03 Dose: 300 mg Aspirin (Aspirin) 325 mg PO DAILY COUNT INCLUDES THE [facility] Last Admin: 05/26/18 09:03 Dose: 325 mg Atorvastatin Calcium (Lipitor) 20 mg PO DAILY COUNT INCLUDES THE [facility] Last Admin: 05/26/18 09:03 Dose: 20 mg Azithromycin (Zithromax) 250 mg PO DAILY COUNT INCLUDES THE [facility] Stop: 05/28/18 09:01 Last Admin: 05/26/18 09:04 Dose: 250 mg Carvedilol (Coreg) 6.25 mg PO BID-[facility] Last Admin: 05/26/18 09:03 Dose: 6.25 mg Clonidine (Catapres) 0.2 mg PO TID COUNT INCLUDES THE [facility] Last Admin: 05/26/18 09:03 Dose: 0.2 mg Dextrose/Water (Dextrose 50%) 25 gm SLOW IVP PRN PRN PRN Reason: Hypoglycemia Last Admin: 05/25/18 20:58 Dose: 25 gm Famotidine (Pepcid) 20 mg PO Q24HR COUNT INCLUDES THE [facility] Last Admin: 05/25/18 21:06 Dose: 20 mg Furosemide (Lasix) 80 mg SLOW IVP 0600,1400 COUNT INCLUDES THE [facility] Glimepiride (Amaryl) 4 mg PO BID-[facility] Last Admin: 05/26/18 09:02 Dose: Not Given Glucagon (Glucagon) 1 mg IM PRN PRN PRN Reason: Hypoglycemia Guaifenesin/Dextromethorphan (Robitussin Dm) 15 ml PO Q4H PRN PRN Reason: Cough Heparin Sodium (Porcine) (Heparin) 5,000 units SC TID COUNT INCLUDES THE [facility] Last Admin: 05/26/18 09:04 Dose: 5,000 units Hydralazine HCl (Apresoline) 50 mg PO BID COUNT INCLUDES THE [facility] Last Admin: 05/26/18 09:03 Dose: 50 mg Dextrose/Water (D5w) 1,000 mls @ 0 mls/hr IV .Q0M PRN PRN Reason: Hypoglycemia Cefazolin Sodium/Dextrose 2 gm (/ Device) 50 mls @ 100 mls/hr IVPB ONCALL-OR ISIDRO Insulin Human Lispro (Humalog) 0 units SC .MILD SLIDING SCALE PRN PRN Reason: Mild Correctional Scale Last Admin: 05/25/18 11:21 Dose: 2 unit Insulin Human Lispro (Humalog) 0 units SC .BEDTIME SLIDING SC PRN PRN Reason: Bedtime Correctional Scale Last Admin: 05/22/18 22:02 Dose: 2 unit Methylprednisolone Sodium Succinate (Solu-Medrol) 20 mg IVP 0300,0900,1500, 2100 COUNT INCLUDES THE [facility] Last Admin: 05/26/18 09:04 Dose: 20 mg Metolazone (Zaroxolyn) 5 mg PO ONE COUNT INCLUDES THE [facility] Nicotine (Nicoderm Patch) 14 mg TD Q24HR COUNT INCLUDES THE [facility] Last Admin: 05/25/18 21:16 Dose: 14 mg Ondansetron HCl (Zofran Odt) 4 mg PO Q6H PRN PRN Reason: Nausea/Vomiting Ondansetron HCl (Zofran) 4 mg IVP Q6H PRN PRN Reason: Nausea/Vomiting Senna/Docusate Sodium (Senokot S) 2 tab PO BIDPRN PRN PRN Reason: Constipation Sodium Chloride (Flush - Normal Saline) 10 ml IVF Q12HR COUNT INCLUDES THE [facility] Last Admin: 05/26/18 09:05 Dose: 10 ml Sodium Chloride (Flush - Normal Saline) 10 ml IVF PRN PRN PRN Reason: Saline Flush Sterile Water (Bacteriostatic Water) 1 ml FS PRN PRN PRN Reason: RECONSTITUTION Last Admin: 05/23/18 21:40 Dose: 1 ml Sterile Water (Bacteriostatic Water) 1 ml FS PRN PRN PRN Reason: RECONSTITUTION
[2018-05-26] MEDS ORDERED: Metolazone 5 MG TAB PO SCH (12:15)
[2018-05-26] MEDS: Furosemide 100 MG/10 ML VIAL SLOW IVP SCH (14:27)
--- NOTE | 2018-05-26 14:52 | PRG ---
DATE OF SERVICE: 05/26/2018 SERVICE: Pulmonary Medicine. INTERVAL HISTORY: The patient is doing really well from respiratory standpoint. Breathing comfortably. Denies any current chest pain. Remains on a little bit of oxygen. He is really concerned about the procedure, but understand that if we do not have control of his volume, we will not keep him from getting respiratory failure, recurrently. Otherwise, there has been no interval change to his condition. He slept fairly well last night. He does have a CPAP at home for known sleep apnea. That being said, he has not used in quite some time. PHYSICAL EXAMINATION: VITAL SIGNS: Afebrile, pulse 84, blood pressure 141/65, respirations 18, and saturation 95% on room air. GENERAL: The patient is awake and alert, in no apparent distress. LUNGS: Decent air entry. There are crackles dependently. No prolonged expiratory phase or wheezing is appreciated. HEART: Normal rate. Regular. ABDOMEN: Soft, nontender, and nondistended. Bowel sounds are positive. MUSCULOSKELETAL: No cyanosis or clubbing. No pitting in the bilateral lower extremities. NEUROLOGIC: Grossly nonfocal. LABORATORY DATA: Blood sugars ranged from 45 to 122. Creatinine 4.35 and roughly stable. BUN 67 and stable. Basic metabolic profile is otherwise unremarkable. Hepatitis B core antibody is positive, surface antigen is nonreactive. ASSESSMENT: 1. Acute hypoxic respiratory failure. 2. Chronic obstructive pulmonary disease with acute exacerbation, mild. 3. Acute on chronic diastolic heart failure. 4. Chronic kidney disease, stage 5, with volume overload, refractory to Lasix. DISCUSSION AND PLAN: The patient is doing okay from respiratory standpoint. He is going to go down for a dialysis catheter placement and he will be initiated on dialysis. Once he is dialyzed to euvolemia, my suspicion is breathing will improve significantly. Pulmonary will continue to follow along. Once we have dependent control of his volume status, we will wean oxygen away. Job ID: [id number] [facility]
[2018-05-26] MEDS ORDERED: Dexamethasone 4 mg/ml Vial ONE (17:01)
[2018-05-26] MEDS ORDERED: Dextrose 50% Abboject 50 ML SYRINGE ONE (17:01)
--- NOTE | 2018-05-26 17:24 | PDOC.CTH ---
Cardiology Progress Note - Subjective No new issues. He will get his HD catheter placed tomorrow. - Objective Vital Signs Temp Pulse Pulse Pulse Resp BP BP 05/26/18 16:45 97.6 F 110 H 20 05/26/18 16:09 72 12 05/26/18 12:05 71 12 05/26/18 12:00 97.7 F 84 18 05/26/18 09:23 80 99 140/69 151/75 H 05/26/18 09:03 94 05/26/18 07:50 97.9 F 94 20 05/26/18 07:08 05/26/18 07:05 94 12 BP Pulse Ox 05/26/18 16:45 143/68 H 98 05/26/18 16:09 05/26/18 12:05 05/26/18 12:00 141/65 H 95 05/26/18 09:23 05/26/18 09:03 05/26/18 07:50 177/93 H 99 05/26/18 07:08 100 05/26/18 07:05 Weight 239 lb 6 oz 05/25/18 05/26/18 05/27/18 06:59 06:59 06:59 Intake Total 1320 1460 480 Output Total 150 Balance 1170 1460 480 - Physical Examination General/Neuro: alert & oriented x3, NAD Neck: no JVD present Lungs: CTA, unlabored respirations Heart: RRR Abdomen: NT/ND Extremities: + edema B (1+) - Telemetry Telemetry Rhythm: NSR - Labs Result Diagrams: 05/23/18 05:23 05/26/18 05:53 Troponin/CKMB Troponin I 0.019 ng/mL (< 0.028) 05/22/18 22:21 - Assessment/Plan 1. Acute on chronic diastolic heart failure. 2. COPD 3. CKD stage 5 PLAN: - HD catheter to be placed tomorrow. - Nephrology planning on starting dialysis soon after.
[2018-05-26] MEDS: Famotidine 20 MG TAB PO SCH (20:26)
[2018-05-26] MEDS: Dextrose 50% Abboject 50 ML SYRINGE SLOW IVP PRN (22:29)
[2018-05-26] MEDS: Nicotine 14 MG PATCH TD SCH (22:40)
[2018-05-27] MEDS: methylPREDNISolone Sod Succ 40 MG VIAL IVP SCH ×4 (04:09→22:59)
[2018-05-27] MEDS: Dextrose 50% Abboject 50 ML SYRINGE SLOW IVP PRN ×3 (05:27→09:18)
[2018-05-27] MEDS: Dextrose 5% in Water 1,000 ML IV PRN (05:41)
[2018-05-27] MEDS: Furosemide 100 MG/10 ML VIAL SLOW IVP SCH ×2 (05:41→15:49)
[2018-05-27 07:07] LABS: Anion Gap 14 mmol/L (10-20); BUN (Urea Nitrogen) 79 mg/dL (8.4-25.7); Calc. Creatinine Clearance 21 mL/min (70-130); Calcium 7.4 mg/dL (7.8-10.44); Carbon Dioxide 36 mmol/L (23-31); Chloride 98 mmol/L (98-107); Estimated GFR-MDRD 15; Potassium 4.1 mmol/L (3.5-5.1); Sodium 144 mmol/L (136-145)
[2018-05-27 07:11] LABS: Glucose 44 mg/dL (83-110)
[2018-05-27] MEDS: cloNIDine 0.2 MG TAB PO SCH ×3 (07:59→22:57)
[2018-05-27] MEDS: hydrALAZINE 25 MG TAB PO SCH ×2 (07:59→22:58)
[2018-05-27] MEDS: Aspirin 325 MG TAB PO SCH (07:59)
[2018-05-27] MEDS: Carvedilol 6.25 MG TAB PO SCH ×2 (07:59→18:47)
[2018-05-27] MEDS: Azithromycin 250 MG TAB PO SCH (07:59)
[2018-05-27] MEDS: Allopurinol 300 MG TAB PO SCH (07:59)
[2018-05-27] MEDS: Atorvastatin Calcium 20 MG TAB PO SCH (07:59)
[2018-05-27] MEDS ORDERED: Carvedilol 6.25 MG TAB PO SCH ×3 (08:00→09:00)
[2018-05-27] MEDS: Heparin 5,000 UNITS/ML VIAL SC SCH ×3 (08:02→22:57)
[2018-05-27] MEDS: Bacteriostatic Water 30 ML VIAL FS PRN (08:02)
[2018-05-27] MEDS ORDERED: traMADol HCl 50 MG TAB PO PRN (08:07)
[2018-05-27] MEDS ORDERED: Acetaminophen 500 MG TAB PO PRN (08:07)
[2018-05-27] MEDS ORDERED: Dextrose 10% in Water 1,000 ML IV SCH (08:15)
--- NOTE | 2018-05-27 09:06 | PRG ---
DATE OF SERVICE: 05/27/2018 SUBJECTIVE: The patient is feeling okay today. He is a little scared of the pending AV fistula placement in his arm. OBJECTIVE: VITAL SIGNS: Temperature is 98.4, pulse is 115, blood pressure is 189/94, O2 saturation is 100% on 2 L. HEENT: Unremarkable. NECK: No JVD. CHEST: Clear without wheezing or rhonchi. CARDIAC: S1, S2. Regular. ABDOMEN: Soft. EXTREMITIES: edema. LABORATORY DATA: Sodium 144, potassium 4.1, BUN 79, creatinine 4.8. Glucose ranging from the 40s to 114. ASSESSMENT: 1. Acute hypoxic respiratory failure-better after diuresis. 2. Chronic obstructive pulmonary disease exacerbation. 3. Acute on chronic diastolic heart failure. 4. Chronic kidney disease stage 5. PLAN: His respiratory status seems stable. He is having problems with labile blood sugars. AV fistula will be placed today for pending dialysis. I will go ahead and decrease his steroids to twice daily. His Amaryl is being held, but may take several days to work its way out of the system given the patient's degree of renal failure. Job ID: [id number]
[2018-05-27] MEDS ORDERED: Dextrose 50% Abboject 50 ML SYRINGE ONE (09:16)
--- NOTE | 2018-05-27 10:10 | PRG ---
DATE OF SERVICE: 05/27/2018 SUBJECTIVE: Mr. Tripp is scheduled for dialysis access today. He does not have chest pain or pressure. OBJECTIVE: VITAL SIGNS: Blood pressure 141/60, pulse is variable anywhere between 100 to 115 still looks like sinus rhythm with a first-degree AV block, although on occasion, it is suspicious for atrial flutter. Most of the time it looks like sinus tachycardia with a first-degree block. ASSESSMENT: 1. Diastolic congestive heart failure. 2. Hypertension. 3. End-stage renal disease. PLAN: 1. He is scheduled for hemodialysis. 2. Blood sugars are low. He is receiving D50. Job ID: [id number]
[2018-05-27] MEDS ORDERED: Midazolam HCl 2 mg/2 ml Vial ONE (12:25)
[2018-05-27] MEDS ORDERED: Fentanyl 100 MCG/2 ML VIAL ONE (12:25)
[2018-05-27] MEDS ORDERED: Lidocaine 2% w/Epinephrine 1:200K 20 ML VIAL ONE (12:29)
[2018-05-27] MEDS ORDERED: Protamine Sulfate 50 MG/5 ML VIAL ONE (12:29)
[2018-05-27] MEDS ORDERED: Heparin 10,000 UNITS/1 ML VIAL ONE (12:29)
[2018-05-27] MEDS ORDERED: Sodium Chloride 0.9% 10 ML ONE (12:29)
[2018-05-27] MEDS ORDERED: Bupivacaine HCl 0.5%/Epinephrine 1:200,000/PF 30 ml Vial ONE (12:29)
[2018-05-27] MEDS ORDERED: Heparin 5,000 UNITS/ML VIAL ONE (12:29)
[2018-05-27] MEDS ORDERED: Ioversol 68 % 50 ML VIAL ONE (12:29)
--- NOTE | 2018-05-27 12:51 | PDOC.PN ---
- Subjective Encounter Start Date: 05/27/18 Encounter Start Time: 12:49 Subjective: RN reports Low BS since last evening & again this morning.receiving D50 -: and Glucagon per hypoglycemia protocol.NPO for HD cathter procedure today -: Pt sleepy but arousable .apperas weak - Objective Resuscitation Status - Order Detail: 05/22/18 17:49 Resuscitation Status Routine Resuscitation Status: FULL: Full Resuscitation Discussed with: Patient MAR Reviewed: Yes Vital Signs & Weight: Vital Signs (12 hours) Temp Pulse Resp BP BP Pulse Ox 05/27/18 09:35 141/63 H 05/27/18 07:59 115 H 189/94 H 05/27/18 07:38 101 H 20 05/27/18 07:01 98.4 F 93 20 160/85 H 100 05/27/18 03:06 98.2 F 115 H 18 163/82 H 99 05/27/18 02:16 93 L Weight Weight 234 lb 2 oz I&O: 05/26/18 05/27/18 05/28/18 06:59 06:59 06:59 Intake Total 1460 1940 Output Total 670 Balance 1460 1270 Result Diagrams: 05/23/18 05:23 05/27/18 06:37 Additional Labs: Accuchecks 05/27/18 05/27/18 05/27/18 09:45 09:30 09:14 POC Glucose 122 H 131 H 43 L* 05/27/18 05/27/18 05/27/18 07:17 07:00 05:23 POC Glucose 114 H 37 L* 40 L* 05/26/18 05/26/18 05/26/18 23:46 22:23 20:16 POC Glucose 100 58 L* 108 05/26/18 05/26/18 05/26/18 18:05 17:07 17:00 POC Glucose 121 H 54 L* 45 L* 05/25/18 20:21 POC Glucose 45 L* Microbiology 05/22/18 13:32 Nasal swab Influenza Types A,B Direct EIA - Final Phys Exam - Physical Examination somnolent but arousable HEENT: PERRLA, moist MMs, sclera anicteric, oral pharynx no lesions Neck: no nodes, no JVD, supple, full ROM Respiratory: no wheezing, no rales, no rhonchi, clear to auscultation bilateral Cardiovascular: RRR, no significant murmur Gastrointestinal: soft, non-tender, no distention, positive bowel sounds Musculoskeletal: pulses present, edema present Neurological: non-focal, normal sensation, moves all 4 limbs Psychiatric: normal affect, A&O x 3 Skin: no rash Dx/Plan (1) Hypoglycemia Code(s): E16.2 - HYPOGLYCEMIA, UNSPECIFIED Status: Acute Comment: likley due to NPO status. All oral hypoglycemics stopped yesterday.Check Blood Cx but unlikley infectious etiology.cont D10 IVF for now untill able to eat again (2) JOSE ARMANDO (acute kidney injury) Code(s): N17.9 - ACUTE KIDNEY FAILURE, UNSPECIFIED Status: Acute Comment: Suspect Cardio-renal Vs ATN . Also some CKD 3-4 based on old numbers.To be started on dialysis (3) Acute on chronic diastolic CHF, NYHA class 2 and ACC/AHA stage C Code(s): I50.33 - ACUTE ON CHRONIC DIASTOLIC (CONGESTIVE) HEART FAILURE Status : Acute Comment: cont diuresis (4) COPD exacerbation Code(s): J44.1 - CHRONIC OBSTRUCTIVE PULMONARY DISEASE W (ACUTE) EXACERBATION Status: Acute (5) Acute respiratory failure with hypoxia Code(s): J96.01 - ACUTE RESPIRATORY FAILURE WITH HYPOXIA Status: Acute (6) Uncontrolled hypertension Code(s): I10 - ESSENTIAL (PRIMARY) HYPERTENSION Status: Acute (7) Hyperkalemia Code(s): E87.5 - HYPERKALEMIA Status: Acute Comment: improved (8) Sinus tachycardia Code(s): R00.0 - TACHYCARDIA, UNSPECIFIED Status: Acute Comment: on BB.Increased clonidine (9) DM2 (diabetes mellitus, type 2) Status: Chronic (10) Obesity (BMI 30-39.9) Code(s): E66.9 - OBESITY, UNSPECIFIED Status: Chronic - Plan PT/OT, respiratory therapy, incentive spirometry, out of bed/ambulate, DVT proph w/SCDs HR remains fast. will increase BB as BP also high-monitor. -: HD ctahter today to start dialysis.monito rrenal Fx -: cont lasix for now as per Nephrology. -: cont ASA,statin,BB. no EKATERINA-I d/i JOSE ARMANDO -: am labs * . Review of Systems - Review of Systems Constitutional: weakness, malaise. negative: fever, chills, sweats, other ENT: negative: Ear Pain, Ear Discharge, Nose Pain, Nose Discharge, Nose Congestion, Mouth Pain, Mouth Swelling, Throat Pain, Throat Swelling, Other Respiratory: SOB with Excertion. negative: Cough, Dry, Shortness of Breath, Hemoptysis, Pleuritic Pain, Sputum, Wheezing Cardiovascular: edema. negative: chest pain, palpitations, orthopnea, paroxysmal nocturnal dyspnea, light headedness, other Gastrointestinal: negative: Nausea, Vomiting, Abdominal Pain, Diarrhea, Constipation, Melena, Hematochezia, Other Genitourinary: negative: Dysuria, Frequency, Incontinence, Hematuria, Retention , Other Musculoskeletal: negative: Neck Pain, Shoulder Pain, Arm Pain, Back Pain, Hand Pain, Leg Pain, Foot Pain, Other Neurological: negative: Weakness, Numbness, Incoordination, Change in Speech, Confusion, Seizures, Other - Medications/Allergies Allergies/Adverse Reactions: Allergies Allergy/AdvReac Type Severity Reaction Status Date / Time No Known Allergies Allergy Unverified 03/09/13 15:58 Medications: Current Medications Acetaminophen (Tylenol) 1,000 mg PO Q6H PRN PRN Reason: Moderate to Severe Pain (6-10) Albuterol/Ipratropium (Duoneb) 3 ml NEB [id number] [facility] Last Admin: 05/27/18 10:36 Dose: Not Given Allopurinol (Zyloprim) 300 mg PO DAILY [facility] Last Admin: 05/27/18 07:59 Dose: 300 mg Aspirin (Aspirin) 325 mg PO DAILY [facility] Last Admin: 05/27/18 07:59 Dose: 325 mg Atorvastatin Calcium (Lipitor) 20 mg PO DAILY [facility] Last Admin: 05/27/18 07:59 Dose: 20 mg Azithromycin (Zithromax) 250 mg PO DAILY [facility] Stop: 05/28/18 09:01 Last Admin: 05/27/18 07:59 Dose: 250 mg Carvedilol (Coreg) 12.5 mg PO BID-[facility] Clonidine (Catapres) 0.2 mg PO TID [facility] Last Admin: 05/27/18 07:59 Dose: 0.2 mg Dextrose/Water (Dextrose 50%) 25 gm SLOW IVP PRN PRN PRN Reason: Hypoglycemia Last Admin: 05/27/18 09:18 Dose: 25 gm Famotidine (Pepcid) 20 mg PO Q24HR [facility] Last Admin: 05/26/18 20:26 Dose: 20 mg Furosemide (Lasix) 80 mg SLOW IVP 0600,1400 [facility] Last Admin: 05/27/18 05:41 Dose: 80 mg Glucagon (Glucagon) 1 mg IM PRN PRN PRN Reason: Hypoglycemia Last Admin: 05/27/18 09:25 Dose: 1 mg Guaifenesin/Dextromethorphan (Robitussin Dm) 15 ml PO Q4H PRN PRN Reason: Cough Heparin Sodium (Porcine) (Heparin) 5,000 units SC TID [facility] Last Admin: 05/27/18 08:02 Dose: 5,000 units Hydralazine HCl (Apresoline) 50 mg PO BID [facility] Last Admin: 05/27/18 07:59 Dose: 50 mg Dextrose/Water (D5w) 1,000 mls @ 0 mls/hr IV .Q0M PRN PRN Reason: Hypoglycemia Last Admin: 05/27/18 05:41 Dose: 1,000 mls Cefazolin Sodium/Dextrose 2 gm (/ Device) 50 mls @ 100 mls/hr IVPB ONCALL-OR [facility] Dextrose/Water (Dextrose 10% In Water) 1,000 mls @ 50 mls/hr IV .Q20H [facility] Last Admin: 05/27/18 08:36 Dose: 1,000 mls Insulin Human Lispro (Humalog) 0 units SC .MILD SLIDING SCALE PRN PRN Reason: Mild Correctional Scale Last Admin: 05/25/18 11:21 Dose: 2 unit Insulin Human Lispro (Humalog) 0 units SC .BEDTIME SLIDING SC PRN PRN Reason: Bedtime Correctional Scale Last Admin: 05/22/18 22:02 Dose: 2 unit Methylprednisolone Sodium Succinate (Solu-Medrol) 20 mg IVP BID [facility] Last Admin: 05/27/18 08:56 Dose: Not Given Nicotine (Nicoderm Patch) 14 mg TD Q24HR [facility] Last Admin: 05/26/18 22:40 Dose: 14 mg Ondansetron HCl (Zofran Odt) 4 mg PO Q6H PRN PRN Reason: Nausea/Vomiting Ondansetron HCl (Zofran) 4 mg IVP Q6H PRN PRN Reason: Nausea/Vomiting Senna/Docusate Sodium (Senokot S) 2 tab PO BIDPRN PRN PRN Reason: Constipation Sodium Chloride (Flush - Normal Saline) 10 ml IVF Q12HR [facility] Last Admin: 05/27/18 08:36 Dose: 10 ml Sodium Chloride (Flush - Normal Saline) 10 ml IVF PRN PRN PRN Reason: Saline Flush Sterile Water (Bacteriostatic Water) 1 ml FS PRN PRN PRN Reason: RECONSTITUTION Last Admin: 05/27/18 08:02 Dose: 1 ml Sterile Water (Bacteriostatic Water) 1 ml FS PRN PRN PRN Reason: RECONSTITUTION Tramadol HCl (Ultram) 50 mg PO Q6H PRN PRN Reason: Pain
[2018-05-27] MEDS ORDERED: Lidocaine 2% PF 5 ML VIAL ONE (13:00)
[2018-05-27] MEDS ORDERED: Promethazine HCl 25 MG/ML VIAL SLOW IVP PRN (14:42)
[2018-05-27] MEDS ORDERED: Promethazine HCl 25 MG/ML VIAL IM PRN (14:42)
[2018-05-27] MEDS ORDERED: Ondansetron HCl/PF 4 MG/2 ML Vial IVP PRN (14:42)
[2018-05-27] MEDS ORDERED: Ropivacaine 0.5% HCl/PF (150 MG/30 ML VIAL) ONE (15:06)
[2018-05-27] MEDS ORDERED: PROPOFOL 200 MG/20 ML VIAL ONE (15:25)
--- NOTE | 2018-05-27 15:45 | RAD ---
FExam: Chest one view HISTORY dyspnea, cough Comparison: 05/22/2018 FINDINGS: Lungs: Mild edema Cardiac silhouette:Mild enlargement Pulmonary vessels: Mild engorgement of pulmonary vasculature Pleural Spaces: Clear Pneumothorax: None Right tunneled vascular catheter. Osseous abnormalities: None IMPRESSION: Mild edema Correlate clinically.
--- NOTE | 2018-05-27 17:06 | OP ---
DATE OF PROCEDURE: 05/27/2018 PREOPERATIVE DIAGNOSIS: End-stage renal disease, initial dialysis access. POSTOPERATIVE DIAGNOSIS: End-stage renal disease, initial dialysis access. PROCEDURES PERFORMED: Right internal jugular cuffed tunneled hemodialysis catheter, ultrasound fluoroscopy use. Left arm primary Karan fistula in cephalic vein and radial artery outflow cephalic vein forearm. ANESTHESIA: Regional TIVA, local of 0.5% Marcaine with epinephrine 30 mL mixed with 2% Xylocaine 10 mL. DESCRIPTION OF PROCEDURE: The patient was taken to the operating room, where under intravenous sedation, regional left upper extremity anesthesia. Neck and chest and upper extremity were prepared with ChloraPrep and draped in routine fashion. Local anesthetic was infiltrated in the skin and subcutaneous tissue about the opposite side placing hemodialysis catheter. Ultrasound used to cannulate the right internal jugular vein, J-wire threaded, trocar catheter removed. Skin site was enlarged sharply, stab incision was made over the right chest. The pre-curved [employer] cuffed-tunneled hemodialysis catheter tunneled between the 2 incisions, placed the fabric cuff in the skin exit site over the chest and catheter secured with 2 interrupted suture of 3-0 nylon and sterile dressings applied. Small and medium size dilators were placed with J-wire and the internal jugular vein removed. Dilator and Peel-Away sheath placed with J-wire in the internal jugular vein and J-wire and dilator removed. Catheter placed through the Peel-Away sheath. Platysma was approximated with 4-0 Monocryl, skin with subdermal 4-0 Monocryl and [place] glue applied. Fluoroscopic images revealed good line placement. Each port aspirated blood flushed with saline solution and heparinized saline solution 1000 units of heparin per mL indicating the volume of the port. Incision was made in the left wrist, longitudinally between the cephalic vein and radial artery. There was small thrombus from a previous IV access in the left wrist. This was removed. The remainder of the vein was patent. Radial artery was soft, but had an arteriosclerotic soft plaque proximally. The patient given 6000 units of heparin intravenously. After adequate circulation time, the radial artery was clamped proximally and distally and the branch controlled with a clip. Longitudinal arteriotomy was made sharply for a 2.5 cm anastomosis. After the cephalic vein had been dissected free and hand side of the cephalic vein ligated with a 3-0 silk tie. It was spatulated and interrogated with coronary dilators passing coronary dilators from 2 mm to 4 mm coronary dilator without obstruction. It was flushed with heparinized saline solution. End vein to side radial artery anastomosis was created with continuous suture of 6-0 Prolene. After completing the anastomosis, after clamps were released, there was excellent flow in the fistula interrogated by Doppler. A small counter incision was made to take care of the branch that was dissected free and ligated with 4-0 silk tie. Subcutaneous tissue was approximated with 3-0 Monocryl, skin with subdermal 4-0 Monocryl, and [place] glue applied. The patient was given 25 mg of protamine intravenously by Anesthesia. The patient tolerated the procedure well. Job ID: [id number]
[2018-05-27 17:21] LABS: Actual Bicarbonate (HCO3a) 34.5 mEq/L (22-28); Base Excess (BEa) 3.3 mEq/L (-2.0 to +3.0); Calcium, Ionized 1.04 mmol/L (1.12-1.30); Carboxyhemoglobin (COHb) 1.5 gm% (0.0-3.0); Hemoglobin (Hb) 11.5 g/dL (14.0-18.0); O2 Tension (PaO2) 73.5 mmHg (> 70.0); Potassium - ABG Lab 4.11 mmol/L (3.70-5.30)
[2018-05-27 17:23] LABS: CO2 Tension 98.8 mmHg (35.0-45.0); Puncture Site RBA; pH, Arterial 7.16 (7.35-7.45)
[2018-05-27] MEDS ORDERED: Ventilator Sedation Protocol 1 EACH FS ONE ×2 (17:47→18:15)
--- NOTE | 2018-05-27 17:49 | PDOC.EVN ---
Event Note - Event Note Event Note: Patient became unresponsive during dialysis. He had agonal respirations. A code was called. He had an ABG in which he was acidotic, and hypercapnic. He was moved to the ICU and intubated. [facility].
[2018-05-27 18:03] LABS: Troponin I 0.139 ng/mL (< 0.028)
[2018-05-27 18:05] LABS: ALT (SGPT) 16 U/L (8-55); AST (SGOT) 16 U/L (5-34); Albumin 3.3 g/dL (3.4-4.8); Alkaline Phosphatase 94 U/L (40-150); Anion Gap 13 mmol/L (10-20); BUN (Urea Nitrogen) 60 mg/dL (8.4-25.7); Bilirubin, Total 0.4 mg/dL (0.2-1.2); Calc. Creatinine Clearance 28 mL/min (70-130); Calcium 7.2 mg/dL (7.8-10.44); Carbon Dioxide 32 mmol/L (23-31); Chloride 100 mmol/L (98-107); Estimated GFR-MDRD 21; Globulin 3.2 g/dL (2.4-3.5); Glucose 99 mg/dL (83-110); Potassium 4.2 mmol/L (3.5-5.1); Protein, Total 6.5 g/dL (5.8-8.1); Sodium 141 mmol/L (136-145)
[2018-05-27] MEDS ORDERED: Fentanyl BOLUS 250 ML IVPB PRN (18:07)
[2018-05-27] MEDS ORDERED: Labetalol HCl 100 MG/20 ML VIAL SLOW IVP PRN ×2 (18:07→18:11)
[2018-05-27] MEDS ORDERED: DISCONTINUE PREVIOUS NARCOTIC PAIN MEDICATIONS AND BENZODIAZEPINES FS SCH (18:07)
[2018-05-27] MEDS ORDERED: Propofol BOLUS 1,000 MG/100 ML VIAL IV PRN (18:07)
[2018-05-27] MEDS ORDERED: fentaNYL Citrate/PF 2,000 MCG in Sodium Chloride 0.9% 60 ML IV SCH (18:07)
[2018-05-27] MEDS ORDERED: Lorazepam 2 MG/ML VIAL SLOW IVP PRN (18:07)
[2018-05-27] MEDS ORDERED: Morphine 2 MG/ML SYRINGE SLOW IVP PRN (18:07)
[2018-05-27] MEDS ORDERED: niCARdipine 40MG In NaCl 40 MG/200 ML BAG IVPB SCH (18:15)
[2018-05-27] MEDS: Propofol 1,000 MG/100 ML VIAL IV PRN (18:20)
--- NOTE | 2018-05-27 18:21 | RAD ---
ONE VIEW ABDOMEN: History: Status post intubation. FINDINGS: Nasogastric tube appears to terminate in the gastric antrum or possibly first segment of the duodenum . IMPRESSION: Nasogastric tube as above. POS: PPP
--- NOTE | 2018-05-27 18:21 | RAD ---
FExam: Supine portable chest Provided clinical history: Intubation FINDINGS: Comparison is made with the study dated 05/27/2018 3:13 PM. Interval placement of endotracheal tube, th e tip of which terminates cranial to the randy. Enteric catheter is partially visualized. Right IJ c entral catheter persists. Examination is rotated, limiting assessment. Left basilar pleural and/or pa renchymal opacity cannot be excluded. Evaluation for pneumothorax is limited given the supine nature of the study. IMPRESSION: Interval placement of endotracheal tube and enteric catheter. Possible left basilar pleural and/or pa renchymal opacity.
[2018-05-27] MEDS ORDERED: niCARdipine HCl 50 MG in Sodium Chloride 0.9% 250 ML 230 ML IVPB SCH (18:30)
--- NOTE | 2018-05-27 18:38 | RAD ---
FExam: Portable supine chest Provided clinical history: Code FINDINGS: Comparison is made to examinations earlier same date. Line and tubes appear stable. Heart size and me diastinal silhouette unchanged in appearance. Supine nature the study limits evaluation for detection of pleural fluid and pneumothorax, without gross evidence for such. Bibasilar subsegmental atelectat ic change versus infiltrate. IMPRESSION: Bibasilar subsegmental atelectatic change versus infiltrate.
[2018-05-27 18:51] LABS: Base Excess (BEa) 4.5 mEq/L (-2.0 to +3.0); CO2 Tension 32.7 mmHg (35.0-45.0); Calcium, Ionized 0.91 mmol/L (1.12-1.30); Carboxyhemoglobin (COHb) 1.1 gm% (0.0-3.0); Hemoglobin (Hb) 10.8 g/dL (14.0-18.0); Potassium - ABG Lab 3.88 mmol/L (3.70-5.30); pH, Arterial 7.53 (7.35-7.45)
--- NOTE | 2018-05-27 19:03 | PRG ---
DATE OF SERVICE: 05/27/2018 SUBJECTIVE: Gareth Tripp is a 72-year-old male, who went to the OR for dialysis placement today. Apparently, during dialysis, he became unresponsive, was transferred to critical care unit and intubated. He is chemically paralyzed and sedated now. He is currently actually hypertensive with a diastolic of 120 with a systolic of approximately 190. He mechanically ventilated. He is chemically paralyzed. OBJECTIVE: LUNGS: He has equal breath sounds. HEART: Regular rhythm. S1 and S2 normal. ABDOMEN: Soft and nontender. EXTREMITIES: Without asymmetry. NEURO: Cannot be assessed. LABORATORY DATA: Preintubation blood gas; 7.16, CO2 of 98, pO2 of 73. Potassium was 4.2 after the code, BUN was 60, and creatinine was 3.56. White count on the was 7.5 and hemoglobin on the was 11.6. Hemoglobin on blood gas today was 11.5. Chest x-ray afternoon at 3 o'clock was unremarkable. This shows a tunneled dialysis catheter. IMPRESSION AND PLAN: Status post respiratory arrest of unclear etiology. It is unclear to me whether or not this is delayed clearance of sedation or something else. I am told he was talking and moving all extremities before he was intubated, so I do not feel that a catastrophic central nervous system event in the differential at this time. Perhaps, I see no reason to send him down for head CT. If he starts waking up and moves everything, we can sedate him. Order a Cardene drip for blood pressure control if the sedation does not control his blood pressure. We will continue to follow with the other physicians. Blood gas and chest x- ray will be ordered since they have not been done since the code. CRITICAL CARE TIME: 35 minutes. Job ID: [id number] MTDD
[2018-05-27 19:10] LABS: O2 Tension (PaO2) 43.4 mmHg (> 70.0); Puncture Site R RADIAL
[2018-05-27 19:11] LABS: ALV-art Gradient 200.925 (0-20)
[2018-05-27] MEDS ORDERED: Rocuronium Bromide 10 MG/ML (10ML VIAL) ONE (21:57)
[2018-05-27] MEDS ORDERED: Etomidate 20 MG/10 ML VIAL ONE (21:57)
[2018-05-27] MEDS: Famotidine 20 MG TAB PO SCH (22:59)
[2018-05-27] MEDS: Nicotine 14 MG PATCH TD SCH (23:20)
[2018-05-28] MEDS: Dextrose 50% Abboject 50 ML SYRINGE SLOW IVP PRN (00:27)
[2018-05-28] MEDS: Propofol 1,000 MG/100 ML VIAL IV PRN (00:34)
[2018-05-28] MEDS: Dextrose 5% in Water 1,000 ML IV PRN (00:35)
[2018-05-28] MEDS: Dextrose 10% in Water 1,000 ML IV SCH ×2 (01:03→20:59)
--- NOTE | 2018-05-28 02:04 | CON ---
DATE OF CONSULTATION: HISTORY: Information obtained from the chart. The patient is intubated at this time. This 72-year-old gentleman was admitted to the hospital on 05/22/2018 with worsening shortness of breath. He has since been diagnosed with end-stage renal disease and began hemodialysis recently. Today during hemodialysis, a code was called for respiratory distress. He was brought to the ICU where he was intubated and attempts were made to place a Segura catheter. The catheter was placed and the balloon was inflated, but only bloody output was obtained. Irrigation of the catheter was unsuccessful. Bladder scanning revealed 600 mL in his bladder and for that reason, urologic consultation was obtained. The patient has significant other medical history of a nonurologic nature including severe COPD, obstructive sleep apnea, chronic respiratory failure on home oxygen , diastolic congestive heart failure, type 2 diabetes mellitus, mcfp smoking. PAST SURGERY HISTORY: Significant for cholecystectomy in 2010, hernia repair 2009 and 2010. SOCIAL HISTORY: He is a long-time smoker. He used to drink alcohol heavily, although he quit back in the 1980s. He is common-law . FAMILY HISTORY: Noncontributory. ALLERGIES: NO KNOWN DRUG ALLERGIES. CURRENT MEDICATIONS: Please see chart. REVIEW OF SYSTEMS: Not able to be obtained. The patient is intubated. He is in no distress. PHYSICAL EXAMINATION: VITAL SIGNS: Blood pressure is 99/60, pulse 83, he is 100% saturated as mentioned above. He is intubated. CHEST: No wheezing noted. CARDIOVASCULAR: No murmurs auscultated. ABDOMEN: Soft, nontender. No palpable masses. Liver and spleen not palpable. No abdominal tenderness noted. GENITOURINARY: Penis is uncircumcised. He has a Segura catheter that does not appear to be completely inserted. The balloon was deflated and catheter removed. It was clearly not in far enough to be in the bladder. PROCEDURE: After sterile prep, flexible cystoscopy was utilized to gain access to the bladder and there was a urethral trauma consistent with prior catheter placement and probable prior TURP. A guidewire was passed through the cystoscope and then an 18-[place] tip catheter was passed over the guidewire. The urine in the bladder was clear without any clots. The balloon was inflated. IMPRESSION: This gentleman had urethral trauma during catheter placement resulting in gross hematuria. There is no active bleeding within the bladder. Urine is yellow. The trauma will heal up perfectly well with an indwelling Segura catheter. RECOMMENDATION: May remove Segura catheter when patient, awake, alert, and ambulatory. Job ID: [id number] [facility]
--- NOTE | 2018-05-28 04:52 | PRG ---
DATE OF SERVICE: 05/27/2018 SUBJECTIVE: Patient was seen and examined at bedside and overnight events noted. Patient denies any shortness of breath or chest pain or palpitation. No history of nausea or vomiting or diarrhea or fever or chills or cramps. OBJECTIVE: GENERAL: This is a well-built male, in no apparent distress. VITAL SIGNS: Temperature 98.4. Pulse 101. Respiratory rate 20. Blood pressure 141/63. HEENT: Atraumatic, normocephalic. Oral mucosa is moist NECK: Supple. CARDIOVASCULAR: S1, S2 heard. Rate and rhythm regular. RESPIRATORY: Clear to auscultation. GASTROINTESTINAL: Abdomen is soft. MUSCULOSKELETAL: No tenderness. No edema. DERMATOLOGIC: No skin rash. NEUROLOGIC: Alert and awake and oriented X3. No focal neurologic deficits. Moving all the extremities. PSYCHIATRIC: Mood and affect normal. LABORATORY DATA: Potassium is 4.1, BUN is 79, creatinine is 4.8. ASSESSMENT AND PLAN: 1. End-stage renal disease, started on dialysis. 2. Cardiorenal syndrome. 3. Edema, on Lasix. We will remove fluid with dialysis. 4. Hypertension, stable. 5. Prognosis is guarded. We will continue on dialysis as tolerated. Job ID: [id number]
[2018-05-28 05:01] LABS: Anion Gap 15 mmol/L (10-20); BUN (Urea Nitrogen) 70 mg/dL (8.4-25.7); Calc. Creatinine Clearance 25 mL/min (70-130); Calcium 7.1 mg/dL (7.8-10.44); Carbon Dioxide 31 mmol/L (23-31); Chloride 97 mmol/L (98-107); Estimated GFR-MDRD 18; Glucose 125 mg/dL (83-110); Potassium 3.6 mmol/L (3.5-5.1); Sodium 139 mmol/L (136-145)
[2018-05-28] MEDS: Furosemide 100 MG/10 ML VIAL SLOW IVP SCH ×2 (06:15→13:54)
[2018-05-28 07:14] LABS: Hemoglobin 9.9 g/dL (14.0-18.0); Mean Corpuscular HGB CONC 34.1 g/dL (32.0-36.0); Mean Corpuscular Hemoglobin 28.9 pg (27.0-31.0); Mean Corpuscular Volume 84.9 fL (78.0-98.0); Mean Platelet Volume 10.6 fL (7.4-10.4); Platelet Count 132 thou/uL (130-400); RBC Distribution Width 13.9 % (11.5-14.5); Red Blood Cell (RBC) Count 3.44 mill/uL (4.70-6.10); White Blood Cell (WBC) Count 12.4 thou/uL (4.8-10.8)
[2018-05-28 07:16] LABS: Band 3 % (5-11); Large Platelets SLIGHT; Lymphocytes 6 % (21-51); MDiff Complete? YES; Monocytes 4 % (0-10); Neutrophil 85 % (42-75); Platelet Morphology Comment Appears Adequate; Polychromasia SLIGHT = 2-3 cells (100X) (0-2/hpf); Reactive Lymphocytes 2 % (0-10); Target Cells SLIGHT = 2-5 cells (100X) (0-1/hpf)
[2018-05-28 07:49] LABS: Actual Bicarbonate (HCO3a) 31.1 mEq/L (22-28); Calcium, Ionized 0.91 mmol/L (1.12-1.30); Carboxyhemoglobin (COHb) 1.3 gm% (0.0-3.0); pH, Arterial 7.53 (7.35-7.45)
[2018-05-28 07:51] LABS: O2 Tension (PaO2) 46.9 mmHg (> 70.0); Puncture Site RR
--- NOTE | 2018-05-28 07:54 | RAD ---
FAP view chest. HISTORY: Ventilator dependent patient. AP view chest demonstrates EKG leads seen over the chest. There is a nasogastric tube in place. Endotracheal tube is in good position. There is a right jugular dialysis catheter in place. Small bilateral pleural effusions seen. Pulmonary vascular congestion seen. IMPRESSION: Increasing pulmonary vascular congestion.
[2018-05-28] MEDS: cloNIDine 0.2 MG TAB PO SCH ×3 (08:18→21:09)
[2018-05-28] MEDS: Carvedilol 6.25 MG TAB PO SCH ×2 (08:18→17:42)
[2018-05-28] MEDS: hydrALAZINE 25 MG TAB PO SCH ×2 (08:19→21:08)
[2018-05-28] MEDS: Aspirin 325 MG TAB PO SCH (08:19)
[2018-05-28] MEDS: Azithromycin 250 MG TAB PO SCH (08:19)
[2018-05-28] MEDS: Atorvastatin Calcium 20 MG TAB PO SCH (08:19)
[2018-05-28] MEDS: Allopurinol 300 MG TAB PO SCH (08:20)
[2018-05-28] MEDS: methylPREDNISolone Sod Succ 40 MG VIAL IVP SCH ×2 (08:20→21:08)
[2018-05-28] MEDS: Heparin 5,000 UNITS/ML VIAL SC SCH ×3 (08:21→21:07)
--- NOTE | 2018-05-28 08:25 | PRG ---
DATE OF SERVICE: 05/28/2018 35 minutes critical care time. SUBJECTIVE: The patient remains intubated after resting yesterday during dialysis. He will wake up and follow commands without difficulty. OBJECTIVE: VITAL SIGNS: His temperature is 98.5, pulse 91, blood pressure 113/72, O2 saturation 96%. 24-hour intake 1940, output 670. HEENT: Unremarkable. NECK: No JVD. LUNGS: Coarse rhonchi. CARDIAC: S1, S2. Regular. ABDOMEN: Obese, soft. EXTREMITIES: Edematous. LABORATORY DATA: Sodium 139, potassium 3.6, BUN 70, creatinine 4.0, and glucose 125. White blood cell count 12, hematocrit 29.2, and platelet count 132. PH 7.53, pCO2 of 38, pO2 of 46 (venous gas). Chest x-ray shows some pulmonary edema, bilateral small effusions. The ET tube is in proper position. There is a tunneled right IJ dialysis catheter in place. ASSESSMENT: 1. Acute respiratory failure, requiring mechanical ventilation. 2. Underlying chronic obstructive pulmonary disease. 3. Pulmonary edema. PLAN: 1. Probably fabian to go ahead and do dialysis prior to extubating the patient. He seems fluid overloaded and I am not sure how much they were able to remove yesterday during the initial dialysis session. 2. Otherwise, continue supportive care. Job ID: [id number]
--- NOTE | 2018-05-28 10:23 | PRG ---
DATE OF SERVICE: 05/28/2018 SUBJECTIVE: Gaerth Tripp had dialysis access yesterday, left Karan fistula, hemodialysis catheter placement. During dialysis, he had cardiac arrhythmia with hypotension, respiratory failure requiring an ICU transfer, ventilator, and sedation. He is awake this morning, follows commands. OBJECTIVE: LUNGS: Clear to auscultation. CARDIAC: Regular rate and rhythm without murmur or gallop. ABDOMEN: Soft. EXTREMITIES: Left arm fistula is patent. Subtle thrill and subtle bruit. Strongly palpable brachial pulse. Good hand function. LABORATORY DATA: Hemoglobin 9.9, BUN 70, creatinine 4.02, GFR 18, sodium 139, and potassium 3.6. ASSESSMENT AND PLAN: Status post dialysis access. Please call if central access is needed for this critical illness, then I can place an IJ or femoral line. Avoid IVs above his wrist. Avoid PICC lines. Avoid midlines. At this point, I will see him as needed in this hospitalization. He should follow up in my office in 2 to 3 weeks. Job ID: [id number]
--- NOTE | 2018-05-28 10:28 | PRG ---
DATE OF SERVICE: 05/28/2018 SUBJECTIVE: Mr. Tripp remains on the ventilator. OBJECTIVE: GENERAL: He is awake. VITAL SIGNS: His blood pressure is 96/60, pulse is 80, it is irregular with atrial fibrillation. LUNGS: Clear. CARDIAC: Irregularly irregular. ABDOMEN: Soft, nontender. EXTREMITIES: There is mild edema. ASSESSMENT: 1. Diastolic congestive heart failure. 2. Atrial fibrillation. 3. End-stage renal disease. 4. Chronic obstructive pulmonary disease. PLAN: The plan is to go ahead and do dialysis prior to extubation. He is volume overloaded. Continue to follow with you. Prognosis is guarded. Job ID: [id number]
[2018-05-28] MEDS ORDERED: Heparin 10,000 UNITS/ 10 ML VIAL ONE (12:55)
--- NOTE | 2018-05-28 14:40 | PDOC.PN ---
- Subjective Encounter Start Date: 05/28/18 Encounter Start Time: 14:38 Subjective: Pt had unresponsiveness yesterday during dialysis requiring intubation & CC -: seen & examined in CCU today. at bedside and all Qs answered -: Pt remains sedated on Vent but will open eyes when name is called - Objective Resuscitation Status - Order Detail: 05/22/18 17:49 Resuscitation Status Routine Resuscitation Status: FULL: Full Resuscitation Discussed with: Patient MAR Reviewed: Yes Vital Signs & Weight: Vital Signs (12 hours) Temp Pulse Resp BP Pulse Ox 05/28/18 14:14 143/89 H 05/28/18 13:18 121 H 143/89 H 05/28/18 11:00 99.6 F 05/28/18 10:36 84 90/57 L 05/28/18 08:19 86 111/64 05/28/18 08:18 111/64 05/28/18 07:39 16 100 05/28/18 07:30 97 101/51 L 05/28/18 07:00 99.8 F H 87 05/28/18 06:00 17 05/28/18 04:00 98.5 F 16 Weight Admit Weight 237 lb 11.2 oz Weight 234 lb 2 oz Most Recent Monitor Data Heart Rate from ECG 126 NIBP 137/84 NIBP BP-Mean 101 Respiration from ECG 15 SpO2 100 I&O: 05/27/18 05/28/18 05/29/18 06:59 06:59 06:59 Intake Total 1940 Output Total 670 910 465 Balance 1270 -910 -465 Result Diagrams: 05/28/18 04:30 05/28/18 04:30 Additional Labs: Accuchecks 05/28/18 05/28/18 05/28/18 11:25 07:38 06:09 POC Glucose 159 H 126 H 109 05/28/18 05/28/18 05/28/18 02:21 00:59 00:21 POC Glucose 73 102 Less than 35 L* 05/27/18 05/27/18 05/27/18 17:15 16:51 14:41 POC Glucose 99 109 203 H 05/27/18 05/27/18 12:31 10:51 POC Glucose 97 122 H Microbiology 05/27/18 11:52 Venous blood - Right Hand Blood Culture - Preliminary Specimen has been received and culture in progress. No Growth to date. 05/27/18 11:47 Venous blood - Right Hand Blood Culture - Preliminary Specimen has been received and culture in progress. No Growth to date. Phys Exam - Physical Examination Constitutional: NAD ETT. HEENT: PERRLA, moist MMs, sclera anicteric, oral pharynx no lesions Neck: no nodes, no JVD, supple, full ROM Respiratory: no wheezing, no rales, no rhonchi, clear to auscultation bilateral Cardiovascular: RRR, no significant murmur Gastrointestinal: soft, non-tender, no distention, positive bowel sounds Musculoskeletal: pulses present, edema present in restraints.awake and follows simple commands Psychiatric: normal affect Skin: no rash Dx/Plan (1) Acute respiratory failure with hypoxia and hypercarbia Code(s): J96.01 - ACUTE RESPIRATORY FAILURE WITH HYPOXIA; J96.02 - ACUTE RESPIRATORY FAILURE WITH HYPERCAPNIA Status: Acute Comment: Continue Vent support.Diurese .Likley due to worsening CHF (2) Acute on chronic diastolic CHF, NYHA class 2 and ACC/AHA stage C Code(s): I50.33 - ACUTE ON CHRONIC DIASTOLIC (CONGESTIVE) HEART FAILURE Status : Acute Comment: cont diuresis. Dialysis initiated this admission (3) COPD exacerbation Code(s): J44.1 - CHRONIC OBSTRUCTIVE PULMONARY DISEASE W (ACUTE) EXACERBATION Status: Acute (4) JOSE ARMANDO (acute kidney injury) Code(s): N17.9 - ACUTE KIDNEY FAILURE, UNSPECIFIED Status: Acute Comment: Suspect Cardio-renal Vs ATN . Also some CKD 3-4 based on old numbers.To be started on dialysis (5) Hypoglycemia Code(s): E16.2 - HYPOGLYCEMIA, UNSPECIFIED Status: Acute Comment: Improved (6) Uncontrolled hypertension Code(s): I10 - ESSENTIAL (PRIMARY) HYPERTENSION Status: Acute (7) Hyperkalemia Code(s): E87.5 - HYPERKALEMIA Status: Acute Comment: improved (8) Sinus tachycardia Code(s): R00.0 - TACHYCARDIA, UNSPECIFIED Status: Acute Comment: on BB.Increased clonidine (9) DM2 (diabetes mellitus, type 2) Status: Chronic (10) Obesity (BMI 30-39.9) Code(s): E66.9 - OBESITY, UNSPECIFIED Status: Chronic - Plan plan discussed w/ family, may catheter, PT/OT, respiratory therapy, incentive spirometry, DVT proph w/SCDs cont supportive care. fluid removal as tolerated w dialysis -: Cont coreg and Clonidine for HR control & BP control -: IV steroids. -: AM labs. -: Extubate likely post dialysis.Aeration/oxygenation better now * . Review of Systems - Review of Systems Other: can not be obtained due to intubated and sedated state - Medications/Allergies Allergies/Adverse Reactions: Allergies Allergy/AdvReac Type Severity Reaction Status Date / Time No Known Allergies Allergy Unverified 03/09/13 15:58 Medications: Current Medications Acetaminophen (Tylenol) 1,000 mg PO Q6H PRN PRN Reason: Moderate to Severe Pain (6-10) Albuterol/Ipratropium (Duoneb) 3 ml NEB D3TR-AL [facility] Last Admin: 05/28/18 10:36 Dose: 3 ml Allopurinol (Zyloprim) 300 mg PO DAILY [facility] Last Admin: 05/28/18 08:20 Dose: 300 mg Aspirin (Aspirin) 325 mg PO DAILY [facility] Last Admin: 05/28/18 08:19 Dose: 325 mg Atorvastatin Calcium (Lipitor) 20 mg PO DAILY [facility] Last Admin: 05/28/18 08:19 Dose: 20 mg Carvedilol (Coreg) 12.5 mg PO BID-WM [facility] Last Admin: 05/28/18 08:18 Dose: Not Given Clonidine (Catapres) 0.2 mg PO TID [facility] Last Admin: 05/28/18 14:14 Dose: Not Given Dextrose/Water (Dextrose 50%) 25 gm SLOW IVP PRN PRN PRN Reason: Hypoglycemia Last Admin: 05/28/18 00:27 Dose: 25 gm Famotidine (Pepcid) 20 mg PO Q24HR [facility] Last Admin: 05/27/18 22:59 Dose: 20 mg Glucagon (Glucagon) 1 mg IM PRN PRN PRN Reason: Hypoglycemia Last Admin: 05/27/18 09:25 Dose: 1 mg Guaifenesin/Dextromethorphan (Robitussin Dm) 15 ml PO Q4H PRN PRN Reason: Cough Heparin Sodium (Porcine) (Heparin) 5,000 units SC TID [facility] Last Admin: 05/28/18 08:21 Dose: 5,000 units Hydralazine HCl (Apresoline) 50 mg PO BID [facility] Last Admin: 05/28/18 08:19 Dose: Not Given Cefazolin Sodium/Dextrose 2 gm (/ Device) 50 mls @ 100 mls/hr IVPB ONCALL-OR ISIDRO Fentanyl Citrate 2,000 mcg/ (Sodium Chloride) 100 mls @ 0 mls/hr IV INF [facility]; Protocol Stop: 06/26/18 18:07 Fentanyl Citrate (Fentanyl Bolus) 250 mls @ 0 mls/hr IVPB PRN PRN PRN Reason: Breakthrough pain/agitation Stop: 06/26/18 18:07 Nicardipine HCl 50 mg/ Sodium (Chloride) 250 mls @ 0 mls/hr IVPB INF [facility]; Protocol Dextrose/Water (Dextrose 10% In Water) 1,000 mls @ 50 mls/hr IV .Q20H [facility] Last Admin: 05/28/18 01:03 Dose: 1,000 mls Insulin Human Lispro (Humalog) 0 units SC .MILD SLIDING SCALE PRN PRN Reason: Mild Correctional Scale Last Admin: 05/25/18 11:21 Dose: 2 unit Insulin Human Lispro (Humalog) 0 units SC .BEDTIME SLIDING SC PRN PRN Reason: Bedtime Correctional Scale Last Admin: 05/22/18 22:02 Dose: 2 unit Labetalol HCl (Normodyne) 20 mg SLOW IVP Q4H PRN PRN Reason: SBP Greater Than 170 Lorazepam (Ativan) 2 mg SLOW IVP Q1H PRN PRN Reason: Breakthrough agitation Stop: 06/26/18 18:07 Methylprednisolone Sodium Succinate (Solu-Medrol) 20 mg IVP BID [facility] Last Admin: 05/28/18 08:20 Dose: 20 mg Morphine Sulfate (Morphine) 2 mg SLOW IVP Q1H PRN PRN Reason: BREAKTHROUGH PAIN/Agitation Stop: 06/26/18 18:07 Ondansetron HCl (Zofran Odt) 4 mg PO Q6H PRN PRN Reason: Nausea/Vomiting Ondansetron HCl (Zofran) 4 mg IVP Q6H PRN PRN Reason: Nausea/Vomiting Propofol (Diprivan) 1,000 mg IV INF PRN; Protocol PRN Reason: TO ACHIEVE GOAL RASS Stop: 06/26/18 18:07 Last Admin: 05/28/18 00:34 Dose: 1,000 mg Propofol (Diprivan Bolus) 20 mg IV Q5MIN PRN PRN Reason: BREAKTHROUGH AGITATION Stop: 06/26/18 18:07 Senna/Docusate Sodium (Senokot S) 2 tab PO BIDPRN PRN PRN Reason: Constipation Sodium Chloride (Flush - Normal Saline) 10 ml IVF Q12HR [facility] Last Admin: 05/28/18 08:29 Dose: 10 ml Sodium Chloride (Flush - Normal Saline) 10 ml IVF PRN PRN PRN Reason: Saline Flush Sterile Water (Bacteriostatic Water) 1 ml FS PRN PRN PRN Reason: RECONSTITUTION Last Admin: 05/27/18 08:02 Dose: 1 ml Sterile Water (Bacteriostatic Water) 1 ml FS PRN PRN PRN Reason: RECONSTITUTION
--- NOTE | 2018-05-28 17:34 | PRG ---
DATE OF SERVICE: 05/28/2018 SUBJECTIVE: Patient was seen and examined at bedside and overnight events noted. Patient denies any shortness of breath or chest pain or palpitation. No history of nausea or vomiting or diarrhea or fever or chills or cramps. OBJECTIVE: GENERAL: This is a well-built male, in no apparent distress. VITAL SIGNS: Temperature 99.5. Pulse 124. Respiratory rate 18. Blood pressure 138/93. HEENT: Atraumatic, normocephalic. Oral mucosa is moist NECK: Supple. CARDIOVASCULAR: S1, S2 heard. Rate and rhythm regular. RESPIRATORY: Clear to auscultation. GASTROINTESTINAL: Abdomen is soft. MUSCULOSKELETAL: 1+ edema. DERMATOLOGIC: No skin rash. NEUROLOGIC: Alert and awake and oriented X3. No focal neurologic deficits. Moving all the extremities. PSYCHIATRIC: Mood and affect normal. LABORATORY DATA: Potassium is 3.6, BUN is 70, creatinine is 4.02. ASSESSMENT AND PLAN: 1. End-stage renal disease. We will continue on hemodialysis. Plan is to have dialysis with ultrafiltration, cardiorenal syndrome with fluid overload. 2. Edema. 3. Hypertension. 4. Continue Lasix. We will have ultrafiltration as tolerated. The patient is at high risk for dialysis. We will monitor closely. Job ID: [id number]
[2018-05-28] MEDS: Famotidine 20 MG TAB PO SCH (21:07)
--- NOTE | 2018-05-28 21:19 | EKG ---
Test Reason : Blood Pressure : / mmHG Vent. Rate : 087 BPM Atrial Rate : 249 BPM P-R Int : 000 ms QRS Dur : 074 ms QT Int : 394 ms P-R-T Axes : 000 067 073 degrees QTc Int : 474 ms Atrial flutter with variable A-V block Low voltage QRS Nonspecific ST abnormality Abnormal ECG When compared with ECG of 22-MAY-2018 15:29, (Unconfirmed) Atrial flutter has replaced Sinus rhythm ST elevation now present in Inferior leads T wave inversion no longer evident in Inferior leads Confirmed by GEM BOLES, DR. Garcia ([id number]) on 05/28/2018 9:18:45 PM Referred By: Teddy TATE Confirmed By:DR. Radha RABAGO MD
[2018-05-29 04:30] LABS: Band 6 % (5-11); Hemoglobin 9.4 g/dL (14.0-18.0); Lymphocytes 10 % (21-51); MDiff Complete? YES; Mean Corpuscular HGB CONC 33.3 g/dL (32.0-36.0); Mean Corpuscular Hemoglobin 28.4 pg (27.0-31.0); Mean Corpuscular Volume 85.3 fL (78.0-98.0); Mean Platelet Volume 10.6 fL (7.4-10.4); Monocytes 4 % (0-10); Neutrophil 80 % (42-75); Platelet Count 123 thou/uL (130-400); RBC Distribution Width 14.1 % (11.5-14.5); Red Blood Cell (RBC) Count 3.31 mill/uL (4.70-6.10); White Blood Cell (WBC) Count 10.5 thou/uL (4.8-10.8)
[2018-05-29 04:36] LABS: Anion Gap 11 mmol/L (10-20); BUN (Urea Nitrogen) 50 mg/dL (8.4-25.7); Calc. Creatinine Clearance 32 mL/min (70-130); Calcium 7.2 mg/dL (7.8-10.44); Carbon Dioxide 33 mmol/L (23-31); Chloride 99 mmol/L (98-107); Estimated GFR-MDRD 24; Glucose 154 mg/dL (83-110); Potassium 4.3 mmol/L (3.5-5.1); Sodium 139 mmol/L (136-145)
--- NOTE | 2018-05-29 07:47 | OP ---
DATE OF PROCEDURE: 05/28/2018 PREOPERATIVE DIAGNOSES: End-stage renal disease, initiating dialysis, respiratory failure on the ventilator for IV access. POSTOPERATIVE DIAGNOSES: End-stage renal disease, initiating dialysis, respiratory failure on the ventilator for IV access. PROCEDURE PERFORMED: Left femoral vein triple-lumen catheter. ANESTHESIA: 1% Xylocaine. DESCRIPTION OF PROCEDURE: With the patient at bedside in his ICU room, left groin was prepared with ChloraPrep and draped in routine fashion. Local anesthetic 1% Xylocaine was infiltrated into the skin and subcutaneous tissue about the operative site. Trocar catheter was cannulated in the femoral vein and Seldinger technique was used to place a triple-lumen catheter secured with 3-0 nylon suture. Biopatch sterile dressing applied. Each port aspirated blood, flushed with saline solution. Sterile dressing applied. Job ID: [id number]
[2018-05-29] MEDS: Aspirin 325 MG TAB PO SCH (08:21)
[2018-05-29] MEDS: Atorvastatin Calcium 20 MG TAB PO SCH (08:21)
[2018-05-29] MEDS: Carvedilol 6.25 MG TAB PO SCH ×2 (08:21→16:56)
[2018-05-29] MEDS: Allopurinol 300 MG TAB PO SCH (08:21)
[2018-05-29] MEDS: cloNIDine 0.2 MG TAB PO SCH ×4 (08:22→21:51)
[2018-05-29] MEDS: methylPREDNISolone Sod Succ 40 MG VIAL IVP SCH ×2 (08:22→21:51)
[2018-05-29] MEDS: hydrALAZINE 25 MG TAB PO SCH ×2 (08:23→21:51)
[2018-05-29] MEDS: Heparin 5,000 UNITS/ML VIAL SC SCH ×3 (08:25→21:50)
--- NOTE | 2018-05-29 08:43 | PRG ---
DATE OF SERVICE: 05/29/2018 SUBJECTIVE: He was successfully extubated yesterday. He feels okay today. He has no complaints. OBJECTIVE: VITAL SIGNS: On exam, temperature is 98.1, pulse 117, blood pressure 144/81. A 24-hour intake 690, output 2600, dialysate. HEENT: Unremarkable. NECK: No adenopathy or JVD. LUNGS: Clear anteriorly. CARDIAC: S1 and S2. Regular. ABDOMEN: Soft and nontender. EXTREMITIES: Edematous. LABORATORY DATA: White blood cell count 10.5, hematocrit 28.2, and platelet count 123. Sodium 139, potassium 4.3, chloride 99, CO2 of 33, BUN 50, creatinine 3.1, and glucose 154. ASSESSMENT: 1. Status post acute respiratory failure, requiring mechanical ventilation. 2. Fluid overload, which appears to be improving. 3. Chronic kidney disease, stage 5, requiring hemodialysis. 4. Chronic obstructive pulmonary disease with exacerbation. PLAN: 1. Wean steroids. 2. Transfer to telemetry. 3. Continue dialysis as indicated. 4. Initiate physical therapy. Job ID: [id number]
[2018-05-29] MEDS ORDERED: Heparin 10,000 UNITS/ 10 ML VIAL ONE (10:05)
[2018-05-29] MEDS ORDERED: Tuberculin PPD 0.1 ML VIAL I-DERMAL SCH (10:45)
--- NOTE | 2018-05-29 11:27 | PRG ---
DATE OF SERVICE: 05/29/2018 SUBJECTIVE: Patient was seen and examined at bedside and overnight events noted. Patient denies any shortness of breath or chest pain or palpitation. No history of nausea or vomiting or diarrhea or fever or chills or cramps. OBJECTIVE: GENERAL: This is a well-built male, in no apparent distress. VITAL SIGNS: Temperature 98.7. Pulse 154. Respiratory rate 19. Blood pressure 145/88. HEENT: Atraumatic, normocephalic. Oral mucosa is moist NECK: Supple. CARDIOVASCULAR: S1, S2 heard. Rate and rhythm regular. RESPIRATORY: Clear to auscultation. GASTROINTESTINAL: Abdomen is soft. MUSCULOSKELETAL: No tenderness. No edema. DERMATOLOGIC: No skin rash. NEUROLOGIC: Alert and awake and oriented X3. No focal neurologic deficits. Moving all the extremities. PSYCHIATRIC: Mood and affect normal. LABORATORY DATA: Potassium 4.3, BUN 50, creatinine 3.1. ASSESSMENT AND PLAN: 1. End-stage renal disease, started on hemodialysis. We will have Case Management consult for outpatient dialysis. 2. Edema. Remove fluid. 3. Hypertension. 4. Okay to continue Lasix. Monitor urine output and we will continue on dialysis as tolerated. No dialysis today. Limit fluid intake. Job ID: [id number]
[2018-05-29] MEDS: HumaLOG 300 UNITS/3 ML VIAL SC PRN ×2 (11:38→17:36)
[2018-05-29] MEDS: Dextrose 10% in Water 1,000 ML IV SCH (15:26)
--- NOTE | 2018-05-29 16:57 | PDOC.PN ---
- Subjective Encounter Start Date: 05/29/18 Encounter Start Time: 16:40 Subjective: f/u for resp failure, JOSE ARMANDO/CKD with plans for HD. States feeling better -: overall. Has not ambulated with PT. - Objective Resuscitation Status - Order Detail: 05/22/18 17:49 Resuscitation Status Routine Resuscitation Status: FULL: Full Resuscitation Discussed with: Patient MAR Reviewed: Yes Vital Signs & Weight: Vital Signs (12 hours) Temp Pulse Resp BP Pulse Ox 05/29/18 16:00 98.6 F 05/29/18 15:23 133/79 05/29/18 14:54 111 H 22 H 99 05/29/18 11:00 98.8 F 05/29/18 10:44 104 H 18 98 05/29/18 08:23 124 H 157/97 H 05/29/18 08:22 157/97 H 05/29/18 08:21 157/97 H 05/29/18 08:00 97 05/29/18 07:27 99 05/29/18 07:25 117 H 21 H 99 05/29/18 07:00 98.7 F Weight Admit Weight 237 lb 11.2 oz Weight 246 lb 4.101 oz Most Recent Monitor Data Heart Rate from ECG 96 NIBP 94/55 NIBP BP-Mean 68 Respiration from ECG 22 SpO2 90 I&O: 05/28/18 05/29/18 05/30/18 06:59 06:59 06:59 Intake Total 690 540 Output Total 910 5637 583 [facility] -910 -1325 -43 Result Diagrams: 05/29/18 04:00 05/29/18 04:00 Additional Labs: Accuchecks 05/29/18 05/29/18 05/28/18 11:25 06:19 21:07 POC Glucose 190 H 128 H 140 H Microbiology 05/27/18 11:52 Venous blood - Right Hand Blood Culture - Preliminary NO GROWTH AT 48 HOURS 05/27/18 11:47 Venous blood - Right Hand Blood Culture - Preliminary NO GROWTH AT 48 HOURS Laboratory Tests 05/27/18 05/27/18 05/28/18 06:37 17:19 04:30 WBC Hgb Creatinine 4.81 H 3.56 H 4.02 H 05/28/18 04:30 WBC 12.4 H Hgb 9.9 L Creatinine EKG Reviewed by me: Yes (Tele - sinus tachycardia) Phys Exam - Physical Examination Constitutional: NAD HEENT: PERRLA, sclera anicteric, oral pharynx no lesions Neck: no nodes, no JVD, supple, full ROM diminished in bases, few exp wheezes sinus tachycardia Cardiovascular: no significant murmur, no rub, gallop Gastrointestinal: soft, non-tender, no distention, positive bowel sounds Musculoskeletal: pulses present, edema present Neurological: normal sensation, moves all 4 limbs Psychiatric: A&O x 3 Skin: normal turgor, cap refill <2 seconds Deviation from normal: Segura with denton urine Dx/Plan (1) JOSE ARMANDO (acute kidney injury) Code(s): N17.9 - ACUTE KIDNEY FAILURE, UNSPECIFIED Status: Acute Comment: Suspect Cardio-renal Vs ATN . Also some CKD 3-4 based on old numbers. HD per renal service, ? [facility] HD (2) Acute on chronic diastolic CHF, NYHA class 2 and ACC/AHA stage C Code(s): I50.33 - ACUTE ON CHRONIC DIASTOLIC (CONGESTIVE) HEART FAILURE Status : Acute Comment: Continue HD as outlined above, continue Coreg (3) Acute respiratory failure with hypoxia and hypercarbia Code(s): J96.01 - ACUTE RESPIRATORY FAILURE WITH HYPOXIA; J96.02 - ACUTE RESPIRATORY FAILURE WITH HYPERCAPNIA Status: Acute Comment: s/p mech ventilation, general supportive mgmt, O2 prn (4) COPD exacerbation Code(s): J44.1 - CHRONIC OBSTRUCTIVE PULMONARY DISEASE W (ACUTE) EXACERBATION Status: Acute Comment: Continue pulm support, Duonebs, Solumedrol (5) Sinus tachycardia Code(s): R00.0 - TACHYCARDIA, UNSPECIFIED Status: Acute Comment: on BB.Increased clonidine, continue Coreg and Clonidine (6) DM2 (diabetes mellitus, type 2) Status: Chronic Comment: ISS, serial accuchecks - Plan PT/OT, licensed social worker, respiratory therapy, out of bed/ambulate, DVT proph w/ SCDs Stable currently -: PT for functional assessment -: Continue HD per Renal service -: Continue Solumedrol -: AM lab: BMP, CBC * Transfer to telemetry
[2018-05-29] MEDS: Famotidine 20 MG TAB PO SCH (21:54)
[2018-05-30 04:35] LABS: Anion Gap 13 mmol/L (10-20); BUN (Urea Nitrogen) 60 mg/dL (8.4-25.7); Calc. Creatinine Clearance 31 mL/min (70-130); Calcium 7.2 mg/dL (7.8-10.44); Carbon Dioxide 33 mmol/L (23-31); Chloride 99 mmol/L (98-107); Estimated GFR-MDRD 22; Glucose 189 mg/dL (83-110); Potassium 4.6 mmol/L (3.5-5.1); Sodium 140 mmol/L (136-145)
[2018-05-30 04:45] LABS: Hemoglobin 9.3 g/dL (14.0-18.0); Lymphocytes 10 % (21-51); MDiff Complete? YES; Mean Corpuscular HGB CONC 33.1 g/dL (32.0-36.0); Mean Corpuscular Hemoglobin 28.3 pg (27.0-31.0); Mean Corpuscular Volume 85.5 fL (78.0-98.0); Mean Platelet Volume 10.5 fL (7.4-10.4); Myelocyte 1 % (0-0); Neutrophil 88 % (42-75); Platelet Count 133 thou/uL (130-400); RBC Distribution Width 14.1 % (11.5-14.5); Reactive Lymphocytes 1 % (0-10); Red Blood Cell (RBC) Count 3.26 mill/uL (4.70-6.10); White Blood Cell (WBC) Count 11.9 thou/uL (4.8-10.8)
[2018-05-30] MEDS ORDERED: predniSONE 20 MG TAB PO SCH (07:18)
--- NOTE | 2018-05-30 09:45 | PRG ---
DATE OF SERVICE: 05/30/2018 SUBJECTIVE: The patient is doing better. He is currently on dialysis, has no complaints. OBJECTIVE: VITAL SIGNS: Temperature is 99.3, pulse 120, blood pressure 140/96. HEENT: Unremarkable. NECK: No JVD. LUNGS: Clear without wheezing. CARDIAC: S1, S2. Regular. ABDOMEN: Soft. EXTREMITIES: No edema. LABORATORY DATA: White blood cell count 11.9, hematocrit 27.9, and platelet count 133. Sodium 140, potassium 4.6, chloride 99, CO2 of 33, BUN 60, creatinine 3.4, and glucose 189. ASSESSMENT: 1. Status post endotracheal intubation after coding during dialysis. 2. Improved fluid overload. 3. Chronic kidney disease. 4. Chronic obstructive pulmonary disease exacerbation. PLAN: 1. The patient is pending getting a telemetry room, but has orders on the chart. 2. Continue low-dose prednisone for a couple of more days and then stop. 3. Continue bronchodilators. Job ID: [id number]
--- NOTE | 2018-05-30 10:49 | PRG ---
DATE OF SERVICE: SUBJECTIVE: Patient was seen and examined at bedside and overnight events noted. Patient denies any shortness of breath or chest pain or palpitation. No history of nausea or vomiting or diarrhea or fever or chills or cramps. OBJECTIVE: GENERAL: This is a well-built male, in no apparent distress. VITAL SIGNS: Temperature 99.3. Heart rate 99. Respiratory rate 20. Blood pressure 140/96. HEENT: Atraumatic, normocephalic. Oral mucosa is moist. NECK: Supple. CARDIOVASCULAR: S1, S2 heard. Rate and rhythm regular. RESPIRATORY: Clear to auscultation. GASTROINTESTINAL: Abdomen is soft. MUSCULOSKELETAL: +1 edema. DERMATOLOGIC: No skin rash. NEUROLOGIC: Alert and awake and oriented X3. No focal neurologic deficits. Moving all the extremities. PSYCHIATRIC: Mood and affect normal. LABORATORY DATA: Potassium is 4.6, BUN is 60, creatinine is 3.4. ASSESSMENT AND PLAN: 1. End-stage renal disease. Continue dialysis. 2. Edema. Remove fluid. 3. Hypertension. 4. Anemia. Plan to continue on dialysis. Follow with Case Management for outpatient placement. Job ID: [id number]
[2018-05-30] MEDS: Heparin 5,000 UNITS/ML VIAL SC SCH ×3 (11:50→20:57)
[2018-05-30] MEDS: hydrALAZINE 25 MG TAB PO SCH ×2 (11:51→20:59)
[2018-05-30] MEDS: cloNIDine 0.2 MG TAB PO SCH ×3 (11:52→20:59)
[2018-05-30] MEDS: Carvedilol 6.25 MG TAB PO SCH ×2 (11:52→18:13)
[2018-05-30] MEDS: Atorvastatin Calcium 20 MG TAB PO SCH (11:52)
[2018-05-30] MEDS: Allopurinol 300 MG TAB PO SCH (11:53)
[2018-05-30] MEDS: predniSONE 20 MG TAB PO SCH (11:53)
[2018-05-30] MEDS: Aspirin 325 MG TAB PO SCH (11:53)
[2018-05-30] MEDS ORDERED: Heparin 10,000 UNITS/ 10 ML VIAL ONE (12:00)
[2018-05-30] MEDS: HumaLOG 300 UNITS/3 ML VIAL SC PRN (16:32)
--- NOTE | 2018-05-30 19:15 | PDOC.PN ---
- Subjective Encounter Start Date: 05/30/18 Encounter Start Time: 17:40 Subjective: f/u for JOSE ARMANDO/CKD and resp failure now completing HD x 2. Feels better -: overall with improved SOB. Tolerating po intake. - Objective Resuscitation Status - Order Detail: 05/22/18 17:49 Resuscitation Status Routine Resuscitation Status: FULL: Full Resuscitation Discussed with: Patient MAR Reviewed: Yes Vital Signs & Weight: Vital Signs (12 hours) Temp Pulse Pulse Pulse Resp BP BP 05/30/18 18:13 119/62 05/30/18 16:00 98.3 F 05/30/18 15:48 114/67 05/30/18 14:27 99 20 05/30/18 14:10 88 90 131/65 05/30/18 13:28 97 107 H 111/68 05/30/18 11:58 98.4 F 05/30/18 11:52 117/69 05/30/18 11:51 124 H 05/30/18 11:36 124 H 20 05/30/18 08:00 BP Pulse Ox Pulse Ox Pulse Ox 05/30/18 18:13 05/30/18 16:00 05/30/18 15:48 05/30/18 14:27 99 05/30/18 14:10 130/77 05/30/18 13:28 121/63 97 97 05/30/18 11:58 05/30/18 11:52 05/30/18 11:51 05/30/18 11:36 05/30/18 08:00 97 Weight Admit Weight 237 lb 11.2 oz Weight 225 lb 4.999 oz Most Recent Monitor Data Heart Rate from ECG 78 NIBP 119/62 NIBP BP-Mean 81 Respiration from ECG 19 SpO2 99 I&O: 05/29/18 05/30/18 05/31/18 06:59 06:59 06:59 Intake Total 660 450 Output Total 2014 8442 510 Balance -1325 -568 -60 Result Diagrams: 05/30/18 04:00 05/30/18 04:00 Additional Labs: Accuchecks 05/30/18 05/30/18 05/29/18 16:28 11:40 22:18 POC Glucose 206 H 112 H 128 H Microbiology 05/27/18 11:52 Venous blood - Right Hand Blood Culture - Preliminary NO GROWTH AT 48 HOURS 05/27/18 11:47 Venous blood - Right Hand Blood Culture - Preliminary NO GROWTH AT 48 HOURS Laboratory Tests 05/25/18 05/27/18 05/27/18 13:16 06:37 17:19 WBC Hgb Creatinine 4.81 H 3.56 H Hep B Core Total Ab Reactive H 05/28/18 05/28/18 05/29/18 04:30 04:30 04:00 WBC 12.4 H Hgb 9.9 L Creatinine 4.02 H 3.10 H Hep B Core Total Ab EKG Reviewed by me: Yes (Tele - sinus tachycardia) Phys Exam - Physical Examination Constitutional: NAD alert, responsive HEENT: PERRLA, sclera anicteric, oral pharynx no lesions Neck: no nodes, no JVD, supple, full ROM few basilar crackles o/w clear tachycardic S1, S2 Cardiovascular: no significant murmur, no rub, gallop Gastrointestinal: soft, non-tender, no distention, positive bowel sounds Musculoskeletal: pulses present, edema present Neurological: normal sensation, moves all 4 limbs Psychiatric: A&O x 3 Skin: normal turgor, cap refill <2 seconds Dx/Plan (1) JOSE ARMANDO (acute kidney injury) Code(s): N17.9 - ACUTE KIDNEY FAILURE, UNSPECIFIED Status: Acute Comment: Suspect Cardio-renal Vs ATN . Also some CKD 3-4 based on old numbers. HD per renal service, ? detention HD (2) Acute on chronic diastolic CHF, NYHA class 2 and ACC/AHA stage C Code(s): I50.33 - ACUTE ON CHRONIC DIASTOLIC (CONGESTIVE) HEART FAILURE Status : Acute Comment: Continue HD as outlined above, continue Coreg (3) Acute respiratory failure with hypoxia and hypercarbia Code(s): J96.01 - ACUTE RESPIRATORY FAILURE WITH HYPOXIA; J96.02 - ACUTE RESPIRATORY FAILURE WITH HYPERCAPNIA Status: Acute Comment: s/p mech ventilation, general supportive mgmt, O2 prn (4) COPD exacerbation Code(s): J44.1 - CHRONIC OBSTRUCTIVE PULMONARY DISEASE W (ACUTE) EXACERBATION Status: Acute Comment: Continue pulm support, Duonebs, Prednisone (5) Sinus tachycardia Code(s): R00.0 - TACHYCARDIA, UNSPECIFIED Status: Acute Comment: on BB.Increased clonidine, continue Coreg and Clonidine (6) DM2 (diabetes mellitus, type 2) Status: Chronic Comment: ISS, serial accuchecks, start Glipizide 2.5mg BID - Plan PT/OT, family welfare social work professor, out of bed/ambulate Stable currently -: Continue HD per Renal service -: Continue Coreg and Clonidine -: Start Glipizide 2.5mg BID -: AM lab: BMP, CBC * Transfer to tele
[2018-05-30] MEDS: Famotidine 20 MG TAB PO SCH (20:59)
[2018-05-31 04:33] LABS: Band 3 % (5-11); Hemoglobin 9.1 g/dL (14.0-18.0); Lymphocytes 17 % (21-51); MDiff Complete? YES; Mean Corpuscular HGB CONC 32.7 g/dL (32.0-36.0); Mean Corpuscular Hemoglobin 28.4 pg (27.0-31.0); Mean Corpuscular Volume 86.7 fL (78.0-98.0); Mean Platelet Volume 10.7 fL (7.4-10.4); Monocytes 2 % (0-10); Neutrophil 78 % (42-75); Platelet Count 155 thou/uL (130-400); Platelet Morphology Comment Appears Adequate; RBC Distribution Width 14.1 % (11.5-14.5); Red Blood Cell (RBC) Count 3.19 mill/uL (4.70-6.10); White Blood Cell (WBC) Count 13.6 thou/uL (4.8-10.8)
[2018-05-31 04:41] LABS: Anion Gap 11 mmol/L (10-20); BUN (Urea Nitrogen) 46 mg/dL (8.4-25.7); Calc. Creatinine Clearance 33 mL/min (70-130); Calcium 7.6 mg/dL (7.8-10.44); Carbon Dioxide 33 mmol/L (23-31); Chloride 99 mmol/L (98-107); Estimated GFR-MDRD 26; Glucose 194 mg/dL (83-110); Sodium 139 mmol/L (136-145)
[2018-05-31] MEDS: hydrALAZINE 25 MG TAB PO SCH ×2 (08:17→21:00)
[2018-05-31] MEDS: Carvedilol 6.25 MG TAB PO SCH ×2 (08:17→17:55)
[2018-05-31] MEDS: Aspirin 325 MG TAB PO SCH (08:18)
[2018-05-31] MEDS: Allopurinol 300 MG TAB PO SCH (08:18)
[2018-05-31] MEDS: cloNIDine 0.2 MG TAB PO SCH ×3 (08:18→21:00)
[2018-05-31] MEDS: glipiZIDE 5 MG TAB PO SCH ×2 (08:18→17:55)
[2018-05-31] MEDS: predniSONE 20 MG TAB PO SCH (08:18)
[2018-05-31] MEDS: Atorvastatin Calcium 20 MG TAB PO SCH (08:18)
[2018-05-31] MEDS: Heparin 5,000 UNITS/ML VIAL SC SCH ×2 (08:19→21:01)
--- NOTE | 2018-05-31 09:49 | PRG ---
DATE OF SERVICE: 05/31/2018 SUBJECTIVE: The patient is doing relatively well, has no complaints. He is still waiting for a telemetry bed. OBJECTIVE: VITAL SIGNS: Temperature is 98.7, pulse 80, blood pressure 119/83. HEENT: Unremarkable. NECK: No JVD. CHEST: Clear without wheezing or rhonchi. CARDIAC: S1 and S2, regular. ABDOMEN: Soft, nontender. EXTREMITIES: No edema. LABORATORY DATA: White blood cell count 13.6, hematocrit 27.6, and platelet count 155. Sodium 139, potassium 4, chloride 99, CO2 of 33, BUN 46, creatinine 2.9, glucose 184. ASSESSMENT: 1. Chronic obstructive pulmonary disease with exacerbation-improved. 2. Status post acute respiratory failure requiring mechanical ventilation. 3. Fluid overload secondary to diastolic congestive heart failure and chronic kidney disease. This problem has improved immensely after he has had dialysis and fluid removal. PLAN: I think all that is left is setting up outpatient dialysis for this gentleman. His prednisone can be stopped after Sunday dose and need to continue increasing his physical activity. Job ID: [id number]
[2018-05-31] MEDS: HumaLOG 300 UNITS/3 ML VIAL SC PRN (12:27)
--- NOTE | 2018-05-31 14:01 | PRG ---
DATE OF SERVICE: 05/31/2018 SUBJECTIVE: Qasim is doing well today. He is breathing well, is off the ventilator. OBJECTIVE: VITAL SIGNS: His blood pressure is 125/58, pulse is in the 80s. LUNGS: Clear. CARDIAC: There is no new murmur, rub, or gallop. ASSESSMENT: Diastolic heart failure, hemodynamically much improved after being dialyzed. PLAN: 1. Continue hemodialysis. 2. He is on hydralazine for blood pressure. Job ID: [id number]
--- NOTE | 2018-05-31 15:56 | PRG ---
DATE OF SERVICE: 05/31/2018 SUBJECTIVE: Patient was seen and examined at bedside and overnight events noted. Patient denies any shortness of breath or chest pain or palpitation. No history of nausea or vomiting or diarrhea or fever or chills or cramps. OBJECTIVE: GENERAL: This is a well-built male, in no apparent distress. VITAL SIGNS: Temperature 98.6. Heart rate 84. Respiratory rate 18. Blood pressure 97/64. HEENT: Atraumatic, normocephalic. Oral mucosa is moist NECK: Supple. CARDIOVASCULAR: S1, S2 heard. Rate and rhythm regular. RESPIRATORY: Clear to auscultation. GASTROINTESTINAL: Abdomen is soft. MUSCULOSKELETAL: No tenderness. No edema. DERMATOLOGIC: No skin rash. NEUROLOGIC: Alert and awake and oriented X3. No focal neurologic deficits. Moving all the extremities. PSYCHIATRIC: Mood and affect normal. LABORATORY DATA: Potassium 4.7, BUN 46, creatinine 2.9. ASSESSMENT AND PLAN: 1. End-stage renal disease. Continue on dialysis. 2. Edema. We will remove fluid. 3. Hypotension. Plan is to continue dialysis as tolerated. Job ID: [id number]
--- NOTE | 2018-05-31 17:33 | PDOC.PN ---
- Subjective Encounter Start Date: 05/31/18 Encounter Start Time: 17:30 Subjective: f/u for JOSE ARMANDO now ESRD on HD [facility] -: now stabilized. Feels much better overall. On room air. - Objective Resuscitation Status - Order Detail: 05/22/18 17:49 Resuscitation Status Routine Resuscitation Status: FULL: Full Resuscitation Discussed with: Patient MAR Reviewed: Yes Vital Signs & Weight: Vital Signs (12 hours) Temp Pulse Pulse Pulse Resp BP BP 05/31/18 16:05 91/49 L 05/31/18 16:00 97.9 F 05/31/18 14:21 95 24 H 05/31/18 11:43 98.6 F 05/31/18 11:09 105 H 95 126/91 H 05/31/18 10:49 100 20 05/31/18 07:32 98.4 F 05/31/18 06:55 87 16 BP Pulse Ox Pulse Ox Pulse Ox 05/31/18 16:05 05/31/18 16:00 05/31/18 14:21 96 05/31/18 11:43 05/31/18 11:09 124/84 96 95 05/31/18 10:49 98 05/31/18 07:32 05/31/18 06:55 95 Weight Admit Weight 237 lb 11.2 oz Weight 227 lb 1.218 oz Most Recent Monitor Data Heart Rate from ECG 104 NIBP 110/60 NIBP BP-Mean 76 Respiration from ECG 14 SpO2 98 I&O: 05/30/18 05/31/18 06/01/18 06:59 06:59 06:59 Intake Total 660 500 480 Output Total 1228 770 300 Balance -568 -270 180 Result Diagrams: 05/31/18 04:00 05/31/18 04:00 Additional Labs: Accuchecks 05/31/18 05/31/18 05/30/18 16:15 11:40 20:42 POC Glucose 76 163 H 192 H Microbiology 05/27/18 11:52 Venous blood - Right Hand Blood Culture - Preliminary NO GROWTH AT 48 HOURS 05/27/18 11:47 Venous blood - Right Hand Blood Culture - Preliminary NO GROWTH AT 48 HOURS Laboratory Tests 05/25/18 05/27/18 05/27/18 13:16 06:37 17:19 WBC Hgb Creatinine 4.81 H 3.56 H Hep B Core Total Ab Reactive H 05/28/18 05/28/18 05/29/18 04:30 04:30 04:00 WBC 12.4 H Hgb 9.9 L Creatinine 4.02 H 3.10 H Hep B Core Total Ab EKG Reviewed by me: Yes (Tele - SR) Phys Exam - Physical Examination Constitutional: NAD alert, smiling HEENT: PERRLA, sclera anicteric, oral pharynx no lesions Neck: no nodes, no JVD, supple, full ROM diminished in bases S1, S2 Cardiovascular: RRR, no significant murmur, no rub, gallop Gastrointestinal: soft, non-tender, no distention, positive bowel sounds Musculoskeletal: pulses present, edema present Neurological: normal sensation, moves all 4 limbs Psychiatric: A&O x 3 Skin: normal turgor, cap refill <2 seconds Dx/Plan (1) JOSE ARMANDO (acute kidney injury) Code(s): N17.9 - ACUTE KIDNEY FAILURE, UNSPECIFIED Status: Acute Comment: Suspect Cardio-renal Vs ATN . Also some CKD 3-4 based on old numbers. HD per renal service, HD for outpt, CM coordinating (2) Acute on chronic diastolic CHF, NYHA class 2 and ACC/AHA stage C Code(s): I50.33 - ACUTE ON CHRONIC DIASTOLIC (CONGESTIVE) HEART FAILURE Status : Acute Comment: Continue HD as outlined above, continue Coreg (3) Acute respiratory failure with hypoxia and hypercarbia Code(s): J96.01 - ACUTE RESPIRATORY FAILURE WITH HYPOXIA; J96.02 - ACUTE RESPIRATORY FAILURE WITH HYPERCAPNIA Status: Acute Comment: s/p mech ventilation, general supportive mgmt, O2 prn (4) COPD exacerbation Code(s): J44.1 - CHRONIC OBSTRUCTIVE PULMONARY DISEASE W (ACUTE) EXACERBATION Status: Acute Comment: Continue pulm support, Duonebs, Prednisone (5) Sinus tachycardia Code(s): R00.0 - TACHYCARDIA, UNSPECIFIED Status: Acute Comment: on BB.Increased clonidine, continue Coreg and Clonidine (6) DM2 (diabetes mellitus, type 2) Status: Chronic Comment: ISS, serial accuchecks, start Glipizide 2.5mg BID - Plan PT/OT, social service manager, respiratory therapy, out of bed/ambulate, DVT proph w/ SCDs Stable currently -: Continue pulmonary supportive mgmt -: OOB with PT -: Continue ASA, Lipitor, Coreg -: Prednisone 20mg daily x 48h then d/c * CM coordinating for outpt HD
[2018-05-31] MEDS: Famotidine 20 MG TAB PO SCH (21:00)
[2018-06-01 06:00] LABS: Band 1 % (5-11); Hemoglobin 8.6 g/dL (14.0-18.0); Lymphocytes 9 % (21-51); MDiff Complete? YES; Mean Corpuscular Hemoglobin 28.1 pg (27.0-31.0); Mean Corpuscular Volume 85.1 fL (78.0-98.0); Mean Platelet Volume 11.5 fL (7.4-10.4); Monocytes 3 % (0-10); Neutrophil 87 % (42-75); Platelet Count 177 thou/uL (130-400); Platelet Morphology Comment Appears Adequate; RBC Distribution Width 14.2 % (11.5-14.5); RBC Morphology Normal; Red Blood Cell (RBC) Count 3.07 mill/uL (4.70-6.10)
[2018-06-01 06:04] LABS: Anion Gap 14 mmol/L (10-20); BUN (Urea Nitrogen) 56 mg/dL (8.4-25.7); Calc. Creatinine Clearance 30 mL/min (70-130); Calcium 7.4 mg/dL (7.8-10.44); Carbon Dioxide 29 mmol/L (23-31); Chloride 98 mmol/L (98-107); Estimated GFR-MDRD 23; Glucose 157 mg/dL (83-110); Potassium 3.9 mmol/L (3.5-5.1); Sodium 137 mmol/L (136-145)
--- NOTE | 2018-06-01 07:04 | PDOC.PN ---
- Subjective Encounter Start Date: 06/01/18 Encounter Start Time: 07:03 Subjective: admitted due to worsening SOB and swelling. -: Started on HD for now ESRD. -: Denied SOB, fever or chest pain. Feeling better - Objective Resuscitation Status - Order Detail: 05/22/18 17:49 Resuscitation Status Routine Resuscitation Status: FULL: Full Resuscitation Discussed with: Patient Vital Signs & Weight: Vital Signs (12 hours) Temp Pulse Resp BP BP Pulse Ox 06/01/18 04:24 98.1 F 91 16 146/80 H 98 06/01/18 01:35 87 20 05/31/18 22:20 99 18 05/31/18 21:00 93 131/60 05/31/18 20:45 94 L 05/31/18 20:30 97 F L 93 18 131/60 94 L 05/31/18 19:20 101 H 20 96 Weight Admit Weight 237 lb 11.2 oz Weight 227 lb 1.218 oz Most Recent Monitor Data Heart Rate from ECG 104 NIBP 110/60 NIBP BP-Mean 76 Respiration from ECG 14 SpO2 98 I&O: 05/31/18 06/01/18 06/02/18 06:59 06:59 06:59 Intake Total 500 480 Output Total 770 300 Balance -270 180 Result Diagrams: 06/01/18 04:36 06/01/18 04:36 Additional Labs: Accuchecks 06/01/18 05/31/18 05/31/18 05:46 20:20 16:15 POC Glucose 165 H 146 H 76 05/31/18 11:40 POC Glucose 163 H Phys Exam - Physical Examination obese and in no distress, afebrile HEENT: moist MMs fair air entry bilateraally. Cardiovascular: RRR, no significant murmur Gastrointestinal: soft, non-tender, no distention, positive bowel sounds Obese Musculoskeletal: pulses present Mild to moderate leg edema Neurological: non-focal, moves all 4 limbs Psychiatric: A&O x 3 Dx/Plan (1) ESRD (end stage renal disease) on dialysis Code(s): N18.6 - END STAGE RENAL DISEASE; Z99.2 - DEPENDENCE ON RENAL DIALYSIS Status: Acute (2) LINDSEY on CPAP Code(s): G47.33 - OBSTRUCTIVE SLEEP APNEA (ADULT) (PEDIATRIC); Z99.89 - DEPENDENCE ON OTHER ENABLING MACHINES AND DEVICES Status: Acute (3) Volume overload Code(s): E87.70 - FLUID OVERLOAD, UNSPECIFIED Status: Acute (4) JOSE ARMANDO (acute kidney injury) Code(s): N17.9 - ACUTE KIDNEY FAILURE, UNSPECIFIED Status: Acute Comment: Suspect Cardio-renal Vs ATN . Also some CKD 3-4 based on old numbers. HD per renal service, HD for outpt, CM coordinating (5) Acute on chronic diastolic CHF, NYHA class 2 and ACC/AHA stage C Code(s): I50.33 - ACUTE ON CHRONIC DIASTOLIC (CONGESTIVE) HEART FAILURE Status : Acute Comment: Continue HD as outlined above, continue Coreg (6) Acute respiratory failure with hypoxia and hypercarbia Code(s): J96.01 - ACUTE RESPIRATORY FAILURE WITH HYPOXIA; J96.02 - ACUTE RESPIRATORY FAILURE WITH HYPERCAPNIA Status: Acute Comment: s/p mech ventilation, general supportive mgmt, O2 prn (7) COPD exacerbation Code(s): J44.1 - CHRONIC OBSTRUCTIVE PULMONARY DISEASE W (ACUTE) EXACERBATION Status: Acute Comment: Continue pulm support, Duonebs, Prednisone (8) Uncontrolled hypertension Code(s): I10 - ESSENTIAL (PRIMARY) HYPERTENSION Status: Acute (9) DM2 (diabetes mellitus, type 2) Status: Chronic Comment: ISS, serial accuchecks, start Glipizide 2.5mg BID (10) Obesity (BMI 30-39.9) Code(s): E66.9 - OBESITY, UNSPECIFIED Status: Chronic - Plan Start lasix 80 mg bid to help with volume mgt and BP -: Continue other treatment -: DC may is cleared by Urology -: For discharge once outpatient dialaysis arrangement is concluded. * .
[2018-06-01 07:36] VITALS: BMI 36.3
[2018-06-01] MEDS ORDERED: Furosemide 20 MG TAB PO SCH (09:00)
--- NOTE | 2018-06-01 11:20 | PRG ---
DATE OF SERVICE: 06/01/2018 SUBJECTIVE: Patient was seen and examined at bedside and overnight events noted. Patient denies any shortness of breath or chest pain or palpitation. No history of nausea or vomiting or diarrhea or fever or chills or cramps. OBJECTIVE: GENERAL: This is a well-built male, in no apparent distress. VITAL SIGNS: Temperature 98.1. Heart rate 94. Respiratory rate 16. Blood pressure 146/80. HEENT: Atraumatic, normocephalic. Oral mucosa is moist NECK: Supple. CARDIOVASCULAR: S1, S2 heard. Rate and rhythm regular. RESPIRATORY: Clear to auscultation. GASTROINTESTINAL: Abdomen is soft. MUSCULOSKELETAL: No tenderness. No edema. DERMATOLOGIC: No skin rash. NEUROLOGIC: Alert and awake and oriented X3. No focal neurologic deficits. Moving all the extremities. PSYCHIATRIC: Mood and affect normal. LABORATORY DATA: Potassium is 3.9, BUN is 56, creatinine is 3.1. ASSESSMENT AND PLAN: 1. End-stage renal disease. Remove fluid with dialysis. 2. Edema. Remove fluid. 3. Hypertension, stable. 4. Anemia. Follow with Case Management for outpatient placement. We will continue on dialysis as tolerated. Fluid overload, better. Job ID: [id number]
[2018-06-01] MEDS: glipiZIDE 5 MG TAB PO SCH ×2 (12:51→15:15)
[2018-06-01] MEDS: Carvedilol 6.25 MG TAB PO SCH ×2 (12:51→16:55)
[2018-06-01] MEDS: Aspirin 325 MG TAB PO SCH (12:52)
[2018-06-01] MEDS: cloNIDine 0.2 MG TAB PO SCH ×3 (12:52→20:23)
[2018-06-01] MEDS: Furosemide 80 MG TAB PO SCH ×2 (12:52→15:16)
[2018-06-01] MEDS: Atorvastatin Calcium 20 MG TAB PO SCH (12:52)
[2018-06-01] MEDS: Allopurinol 300 MG TAB PO SCH (12:52)
[2018-06-01] MEDS: Heparin 5,000 UNITS/ML VIAL SC SCH ×2 (12:53→20:24)
[2018-06-01] MEDS: predniSONE 20 MG TAB PO SCH (12:53)
[2018-06-01] MEDS: hydrALAZINE 25 MG TAB PO SCH ×2 (12:53→20:23)
--- NOTE | 2018-06-01 19:38 | PRG ---
DATE OF SERVICE: 06/01/2018 SUBJECTIVE: Qaism has no new complaints. He says he is slowly feeling a little bit better. OBJECTIVE: VITAL SIGNS: He is afebrile. Heart rate 77, blood pressure 135/62, respiratory rate is 18, oximetry is 92% to 93% on room air. LUNGS: Clear. HEART: Regular rhythm. ABDOMEN: Soft. LABORATORY DATA: White count is 13, hemoglobin is 8.6, platelets 177. Sodium 137, potassium 3.9, chloride 98, bicarb 29, BUN 56, , creatinine is 2.9. He has tunneled dialysis catheter in. Intake and output; 730 in and 900 out. IMPRESSION: 1. Volume overload, clinically improved. 2. Chronic obstructive pulmonary disease exacerbation, clinically improved. 3. Status post placement of a tunneled dialysis catheter. His medications have been reviewed. He is on all p.o. medications at this time. We will continue to follow. Job ID: [id number]
[2018-06-01] MEDS: Famotidine 20 MG TAB PO SCH (20:24)
[2018-06-02 06:52] LABS: Hemoglobin 8.9 g/dL (14.0-18.0); Lymphocytes 23 % (21-51); MDiff Complete? YES; Mean Corpuscular HGB CONC 32.1 g/dL (32.0-36.0); Mean Corpuscular Hemoglobin 28.3 pg (27.0-31.0); Mean Platelet Volume 10.5 fL (7.4-10.4); Monocytes 6 % (0-10); Neutrophil 71 % (42-75); Platelet Count 162 thou/uL (130-400); Platelet Morphology Comment Appears Adequate; RBC Distribution Width 14.3 % (11.5-14.5); Red Blood Cell (RBC) Count 3.15 mill/uL (4.70-6.10); White Blood Cell (WBC) Count 11.6 thou/uL (4.8-10.8)
[2018-06-02 07:07] LABS: Anion Gap 12 mmol/L (10-20); BUN (Urea Nitrogen) 40 mg/dL (8.4-25.7); Calc. Creatinine Clearance 36 mL/min (70-130); Calcium 7.6 mg/dL (7.8-10.44); Carbon Dioxide 29 mmol/L (23-31); Chloride 102 mmol/L (98-107); Estimated GFR-MDRD 29; Glucose 98 mg/dL (83-110); Potassium 4.2 mmol/L (3.5-5.1); Sodium 139 mmol/L (136-145)
[2018-06-02] MEDS: glipiZIDE 5 MG TAB PO SCH ×2 (08:19→17:36)
[2018-06-02] MEDS: Aspirin 325 MG TAB PO SCH (08:20)
[2018-06-02] MEDS: Heparin 5,000 UNITS/ML VIAL SC SCH ×2 (08:20→20:27)
[2018-06-02] MEDS: Allopurinol 300 MG TAB PO SCH (08:20)
[2018-06-02] MEDS: hydrALAZINE 25 MG TAB PO SCH ×2 (08:20→20:25)
[2018-06-02] MEDS: predniSONE 20 MG TAB PO SCH (08:20)
[2018-06-02] MEDS: Carvedilol 6.25 MG TAB PO SCH ×2 (08:20→17:36)
[2018-06-02] MEDS: Furosemide 80 MG TAB PO SCH ×2 (08:21→14:10)
[2018-06-02] MEDS: cloNIDine 0.2 MG TAB PO SCH ×3 (08:21→20:25)
[2018-06-02] MEDS: Atorvastatin Calcium 20 MG TAB PO SCH (08:21)
--- NOTE | 2018-06-02 09:02 | PDOC.PN ---
- Subjective Encounter Start Date: 06/02/18 Encounter Start Time: 09:00 Subjective: No new problem -: Awaiting outpatient HD placement - Objective Resuscitation Status - Order Detail: 05/22/18 17:49 Resuscitation Status Routine Resuscitation Status: FULL: Full Resuscitation Discussed with: Patient Vital Signs & Weight: Vital Signs (12 hours) Temp Pulse Resp BP Pulse Ox 06/02/18 07:15 98.2 F 107 H 16 113/71 94 L 06/02/18 07:07 90 16 06/02/18 04:10 98.9 F 90 18 126/67 95 06/02/18 02:30 96 06/01/18 22:12 85 16 95 Weight Admit Weight 237 lb 11.2 oz Weight 222 lb 6.4 oz Most Recent Monitor Data Heart Rate from ECG 104 NIBP 110/60 NIBP BP-Mean 76 Respiration from ECG 14 SpO2 98 I&O: 06/01/18 06/02/18 06/03/18 06:59 06:59 06:59 Intake Total 730 120 Output Total 900 680 Balance -170 -560 Result Diagrams: 06/02/18 06:03 06/02/18 06:03 Additional Labs: Accuchecks 06/02/18 06/01/18 06/01/18 05:05 22:05 16:48 POC Glucose 115 H 177 H 132 H Phys Exam - Physical Examination Constitutional: NAD HEENT: moist MMs Neck: supple Respiratory: no wheezing fair air entry bilaterally Cardiovascular: RRR Gastrointestinal: soft, non-tender, positive bowel sounds Musculoskeletal: pulses present moderate bilateral leg edema Neurological: moves all 4 limbs Psychiatric: A&O x 3 Dx/Plan (1) ESRD (end stage renal disease) on dialysis Code(s): N18.6 - END STAGE RENAL DISEASE; Z99.2 - DEPENDENCE ON RENAL DIALYSIS Status: Acute (2) LINDSEY on CPAP Code(s): G47.33 - OBSTRUCTIVE SLEEP APNEA (ADULT) (PEDIATRIC); Z99.89 - DEPENDENCE ON OTHER ENABLING MACHINES AND DEVICES Status: Acute (3) Volume overload Code(s): E87.70 - FLUID OVERLOAD, UNSPECIFIED Status: Acute (4) JOSE ARMANDO (acute kidney injury) Code(s): N17.9 - ACUTE KIDNEY FAILURE, UNSPECIFIED Status: Acute Comment: Suspect Cardio-renal Vs ATN . Also some CKD 3-4 based on old numbers. HD per renal service, HD for outpt, CM coordinating (5) Acute on chronic diastolic CHF, NYHA class 2 and ACC/AHA stage C Code(s): I50.33 - ACUTE ON CHRONIC DIASTOLIC (CONGESTIVE) HEART FAILURE Status : Acute Comment: Continue HD as outlined above, continue Coreg (6) Acute respiratory failure with hypoxia and hypercarbia Code(s): J96.01 - ACUTE RESPIRATORY FAILURE WITH HYPOXIA; J96.02 - ACUTE RESPIRATORY FAILURE WITH HYPERCAPNIA Status: Acute Comment: s/p mech ventilation, general supportive mgmt, O2 prn (7) COPD exacerbation Code(s): J44.1 - CHRONIC OBSTRUCTIVE PULMONARY DISEASE W (ACUTE) EXACERBATION Status: Acute Comment: Continue pulm support, Duonebs, Prednisone (8) Uncontrolled hypertension Code(s): I10 - ESSENTIAL (PRIMARY) HYPERTENSION Status: Acute (9) DM2 (diabetes mellitus, type 2) Status: Chronic Comment: ISS, serial accuchecks, start Glipizide 2.5mg BID (10) Obesity (BMI 30-39.9) Code(s): E66.9 - OBESITY, UNSPECIFIED Status: Chronic - Plan Continue supportive care -: Awaiting dialysis chair. -: Continue HD as per Nephrology -: Continue other treatments * .
--- NOTE | 2018-06-02 12:34 | PRG ---
DATE OF SERVICE: 06/02/2018 SUBJECTIVE: Patient was seen and examined at bedside and overnight events noted. Patient denies any shortness of breath or chest pain or palpitation. No history of nausea or vomiting or diarrhea or fever or chills or cramps. OBJECTIVE: GENERAL: This is a well-built male, in no apparent distress. VITAL SIGNS: Temperature 98.2. Heart rate 107. Respiratory rate . Blood pressure 123/67. HEENT: Atraumatic, normocephalic. Oral mucosa is moist NECK: Supple. CARDIOVASCULAR: S1, S2 heard. Rate and rhythm regular. RESPIRATORY: Clear to auscultation. GASTROINTESTINAL: Abdomen is soft. MUSCULOSKELETAL: No tenderness. No edema. DERMATOLOGIC: No skin rash. NEUROLOGIC: Alert and awake and oriented X3. No focal neurologic deficits. Moving all the extremities. PSYCHIATRIC: Mood and affect normal. LABORATORY DATA: Potassium is 4.2, BUN is 40, and creatinine is 2.6. ASSESSMENT AND PLAN: 1. Chronic kidney disease stage 5, on dialysis. We will continue close monitoring of renal function. 2. Edema. 3. Hypertension. 4. Anemia. Plan is to monitor renal function closely. Monitor urine output. Avoid nephrotoxins. Job ID: [id number]
[2018-06-02] MEDS ORDERED: Heparin 10,000 UNITS/ 10 ML VIAL ONE (13:23)
--- NOTE | 2018-06-02 18:04 | PRG ---
DATE OF SERVICE: 06/02/2018 SUBJECTIVE: Gareth Tripp has no complaints. He denies being short of breath. He is in no distress. He is lying flat in bed. OBJECTIVE: VITAL SIGNS: He is afebrile, heart rate is 98, respiratory rate is 18, and oximetry is 100% on room air. Intake and output -560. LUNGS: Clear. HEART: Regular rhythm. ABDOMEN: Soft. IMPRESSION: 1. Volume overload, clinically improved. 2. Chronic obstructive pulmonary disease exacerbation, back near his baseline. 3. Status post placement of tunneled dialysis catheter. 4. Status post dialysis for volume overload. 5. Anemia of chronic disease. His hemoglobin is 8.9 today. 6. Renal insufficiency/renal failure with BUN of 40 and creatinine of 2.68. Intake and outputs -560 with 480 mL urine output. PLAN: We will continue to follow. Job ID: [id number]
[2018-06-02] MEDS: Famotidine 20 MG TAB PO SCH (20:27)
[2018-06-03 05:20] LABS: Anion Gap 11 mmol/L (10-20); BUN (Urea Nitrogen) 52 mg/dL (8.4-25.7); Calc. Creatinine Clearance 28 mL/min (70-130); Calcium 7.7 mg/dL (7.8-10.44); Carbon Dioxide 32 mmol/L (23-31); Chloride 98 mmol/L (98-107); Estimated GFR-MDRD 21; Glucose 126 mg/dL (83-110); Potassium 4.2 mmol/L (3.5-5.1); Sodium 137 mmol/L (136-145)
[2018-06-03 05:21] LABS: Band 1 % (5-11); Hemoglobin 8.5 g/dL (14.0-18.0); Hypochromia SLIGHT = 6-15 cells (100X) (0-5/hpf); Lymphocytes 7 % (21-51); MDiff Complete? YES; Mean Corpuscular HGB CONC 32.8 g/dL (32.0-36.0); Mean Corpuscular Hemoglobin 28.1 pg (27.0-31.0); Mean Corpuscular Volume 85.6 fL (78.0-98.0); Mean Platelet Volume 10.8 fL (7.4-10.4); Monocytes 6 % (0-10); Neutrophil 86 % (42-75); Platelet Count 190 thou/uL (130-400); Platelet Morphology Comment Appears Adequate; RBC Distribution Width 14.3 % (11.5-14.5); Red Blood Cell (RBC) Count 3.02 mill/uL (4.70-6.10); White Blood Cell (WBC) Count 11.7 thou/uL (4.8-10.8)
--- NOTE | 2018-06-03 07:33 | PDOC.PN ---
- Subjective Encounter Start Date: 06/03/18 Encounter Start Time: 07:32 Subjective: No new problem. Feeling better, -: making urine. Swelling continues to improve. - Objective Resuscitation Status - Order Detail: 05/22/18 17:49 Resuscitation Status Routine Resuscitation Status: FULL: Full Resuscitation Discussed with: Patient Vital Signs & Weight: Vital Signs (12 hours) Temp Pulse Resp BP BP Pulse Ox 06/03/18 07:05 92 L 06/03/18 07:03 82 16 92 L 06/03/18 03:57 97.9 F 93 18 111/56 L 95 06/03/18 02:20 76 16 92 L 06/02/18 23:54 125/68 06/02/18 22:41 78 16 93 L 06/02/18 20:25 85 125/70 Weight Admit Weight 237 lb 11.2 oz Weight 100 lb 14.4 oz Most Recent Monitor Data Heart Rate from ECG 104 NIBP 110/60 NIBP BP-Mean 76 Respiration from ECG 14 SpO2 98 I&O: 06/02/18 06/03/18 06/04/18 06:59 06:59 06:59 Intake Total 120 810 Output Total 680 1250 Balance -560 -440 Result Diagrams: 06/03/18 04:22 06/03/18 04:22 Additional Labs: Accuchecks 06/03/18 06/02/18 06/02/18 05:30 20:24 18:03 POC Glucose 116 H 225 H 174 H 06/02/18 11:14 POC Glucose 164 H Phys Exam - Physical Examination Constitutional: NAD HEENT: PERRLA, moist MMs Neck: supple Respiratory: no wheezing, no rales, no rhonchi, clear to auscultation bilateral Cardiovascular: RRR Gastrointestinal: soft, non-tender, no distention, positive bowel sounds mild to moderate bilateral leg edema Neurological: non-focal, moves all 4 limbs Psychiatric: A&O x 3 Dx/Plan (1) ESRD (end stage renal disease) on dialysis Code(s): N18.6 - END STAGE RENAL DISEASE; Z99.2 - DEPENDENCE ON RENAL DIALYSIS Status: Acute (2) LINDSEY on CPAP Code(s): G47.33 - OBSTRUCTIVE SLEEP APNEA (ADULT) (PEDIATRIC); Z99.89 - DEPENDENCE ON OTHER ENABLING MACHINES AND DEVICES Status: Acute (3) Volume overload Code(s): E87.70 - FLUID OVERLOAD, UNSPECIFIED Status: Acute (4) JOSE ARMANDO (acute kidney injury) Code(s): N17.9 - ACUTE KIDNEY FAILURE, UNSPECIFIED Status: Acute Comment: Suspect Cardio-renal Vs ATN . Also some CKD 3-4 based on old numbers. HD per renal service, HD for outpt, CM coordinating (5) Acute on chronic diastolic CHF, NYHA class 2 and ACC/AHA stage C Code(s): I50.33 - ACUTE ON CHRONIC DIASTOLIC (CONGESTIVE) HEART FAILURE Status : Acute Comment: Continue HD as outlined above, continue Coreg (6) Acute respiratory failure with hypoxia and hypercarbia Code(s): J96.01 - ACUTE RESPIRATORY FAILURE WITH HYPOXIA; J96.02 - ACUTE RESPIRATORY FAILURE WITH HYPERCAPNIA Status: Acute Comment: s/p mech ventilation, general supportive mgmt, O2 prn (7) COPD exacerbation Code(s): J44.1 - CHRONIC OBSTRUCTIVE PULMONARY DISEASE W (ACUTE) EXACERBATION Status: Acute Comment: Continue pulm support, Duonebs, Prednisone (8) Uncontrolled hypertension Code(s): I10 - ESSENTIAL (PRIMARY) HYPERTENSION Status: Acute (9) DM2 (diabetes mellitus, type 2) Status: Chronic Comment: ISS, serial accuchecks, start Glipizide 2.5mg BID (10) Obesity (BMI 30-39.9) Code(s): E66.9 - OBESITY, UNSPECIFIED Status: Chronic - Plan Continue diuretic and fluid/salt restriction. -: HD as per Nephrology -: Awaiting outpatient HD arrangement * .
[2018-06-03] MEDS: Aspirin 325 MG TAB PO SCH (08:21)
[2018-06-03] MEDS: Heparin 5,000 UNITS/ML VIAL SC SCH ×2 (08:21→20:46)
[2018-06-03] MEDS: hydrALAZINE 25 MG TAB PO SCH ×2 (08:21→20:45)
[2018-06-03] MEDS: Carvedilol 6.25 MG TAB PO SCH ×2 (08:21→17:31)
[2018-06-03] MEDS: glipiZIDE 5 MG TAB PO SCH ×2 (08:21→17:31)
[2018-06-03] MEDS: cloNIDine 0.2 MG TAB PO SCH ×3 (08:22→20:44)
[2018-06-03] MEDS: Allopurinol 300 MG TAB PO SCH (08:22)
[2018-06-03] MEDS: predniSONE 20 MG TAB PO SCH (08:22)
[2018-06-03] MEDS: Furosemide 80 MG TAB PO SCH ×2 (08:22→17:30)
[2018-06-03] MEDS: Atorvastatin Calcium 20 MG TAB PO SCH (08:22)
--- NOTE | 2018-06-03 09:18 | PRG ---
DATE OF SERVICE: 06/03/2018 SUBJECTIVE: He feels well, has no acute complaints. OBJECTIVE: VITAL SIGNS: Temperature 98.4, pulse 67, respirations 16, O2 saturation 97% on room air, blood pressure 117/73. HEENT: Unremarkable. NECK: No JVD. CHEST: Fairly clear. CARDIAC: S1, S2. Regular. ABDOMEN: Soft. EXTREMITIES: No edema. LABORATORY DATA: White blood cell count 11.7, hematocrit 25.8, and platelet count 190. Sodium 137, potassium 4.2, chloride 98, CO2 of 32, BUN 52, creatinine 3.4, and glucose 126. ASSESSMENT: 1. Chronic renal failure requiring hemodialysis. 2. Chronic obstructive pulmonary disease with exacerbation-now back to baseline. 3. I think part of some of his difficulty with breathing was probably fluid overload. PLAN: I will go ahead and stop his steroids. I will ease his breathing treatments back to every 6 hours. From a Pulmonary standpoint, he will be stable for discharge. For added his other problems, I have been taking care of. Job ID: [id number]
--- NOTE | 2018-06-03 09:52 | PRG ---
DATE OF SERVICE: 06/03/2018 SUBJECTIVE: Mr. Tripp feels much better than he did before. He has no chest pain or pressure. OBJECTIVE: VITAL SIGNS: Blood pressure 117/73, pulse 70 and it is regular. LUNGS: Clear. CARDIAC: Normal S1, normal S2. ASSESSMENT: 1. Diastolic heart failure, improved. 2. Renal failure on hemodialysis. 3. Sinus tachycardia, improved. PLAN: Continue current medical regimen. He is tolerating carvedilol, atorvastatin, furosemide, hydralazine. Job ID: [id number]
[2018-06-03] MEDS ORDERED: Heparin 10,000 UNITS/ 10 ML VIAL ONE (18:30)
[2018-06-03] MEDS: Famotidine 20 MG TAB PO SCH (20:46)
--- NOTE | 2018-06-04 06:20 | PRG ---
DATE OF SERVICE: 06/03/2018 SUBJECTIVE: Patient was seen and examined at bedside and overnight events noted. Patient denies any shortness of breath or chest pain or palpitation. No history of nausea or vomiting or diarrhea or fever or chills or cramps. OBJECTIVE: GENERAL: This is a well-built male in no apparent distress. VITAL SIGNS: Temperature 97.8, pulse , respiratory rate , blood pressure 132/65. HEENT: Atraumatic, normocephalic. Oral mucosa is moist NECK: Supple. CARDIOVASCULAR: S1, S2 heard. Rate and rhythm regular. RESPIRATORY: Clear to auscultation. GASTROINTESTINAL: Abdomen is soft. MUSCULOSKELETAL: No tenderness. No edema. DERMATOLOGIC: No skin rash. NEUROLOGIC: Alert and awake and oriented X3. No focal neurologic deficits. Moving all the extremities. PSYCHIATRIC: Mood and affect normal. LABORATORY DATA: Potassium 4.2, BUN is 52, creatinine is 3.4. ASSESSMENT AND PLAN: 1. End-stage renal disease. Continue on dialysis as tolerated. 2. Edema. Remove fluid. 3. Hypertension. 4. Anemia. 5. Limit fluid and salt intake. Continue on dialysis as tolerated. Job ID: [id number]
[2018-06-04 06:58] LABS: Anion Gap 12 mmol/L (10-20); BUN (Urea Nitrogen) 38 mg/dL (8.4-25.7); Calc. Creatinine Clearance 29 mL/min (70-130); Calcium 7.8 mg/dL (7.8-10.44); Carbon Dioxide 32 mmol/L (23-31); Chloride 99 mmol/L (98-107); Estimated GFR-MDRD 28; Glucose 75 mg/dL (83-110); Sodium 139 mmol/L (136-145)
[2018-06-04 07:02] LABS: Hemoglobin 8.6 g/dL (14.0-18.0); Mean Corpuscular HGB CONC 32.9 g/dL (32.0-36.0); Mean Corpuscular Hemoglobin 28.6 pg (27.0-31.0); Mean Corpuscular Volume 87.1 fL (78.0-98.0); Platelet Count 220 thou/uL (130-400); RBC Distribution Width 14.4 % (11.5-14.5); Red Blood Cell (RBC) Count 3.02 mill/uL (4.70-6.10)
[2018-06-04] MEDS: Carvedilol 6.25 MG TAB PO SCH ×2 (08:52→16:46)
[2018-06-04] MEDS: Atorvastatin Calcium 20 MG TAB PO SCH (08:52)
[2018-06-04] MEDS: Furosemide 80 MG TAB PO SCH ×2 (08:52→14:21)
[2018-06-04] MEDS: hydrALAZINE 25 MG TAB PO SCH (08:52)
[2018-06-04] MEDS: Aspirin 325 MG TAB PO SCH (08:52)
[2018-06-04] MEDS: glipiZIDE 5 MG TAB PO SCH ×2 (08:52→16:46)
[2018-06-04] MEDS: cloNIDine 0.2 MG TAB PO SCH ×2 (08:52→14:21)
[2018-06-04] MEDS: Allopurinol 300 MG TAB PO SCH (08:52)
[2018-06-04] MEDS: Heparin 5,000 UNITS/ML VIAL SC SCH (08:54)
--- NOTE | 2018-06-04 09:53 | PRG ---
DATE OF SERVICE: 06/04/2018 SUBJECTIVE: He is doing well, has no complaints. He states that he his breathing very well. OBJECTIVE: VITAL SIGNS: Temperature 98.5, pulse 76, respirations 20, O2 saturation 99%, and blood pressure 120/67. HEENT: Unremarkable. NECK: No JVD. LUNGS: Clear to auscultation. CARDIAC: S1 and S2 regular without murmur. ABDOMEN: Soft. EXTREMITIES: No edema. LABORATORY DATA: White blood cell count 14, hematocrit 26.3, and platelet count 220. Sodium 139, potassium 4, BUN 38, creatinine 3.7, glucose 75. ASSESSMENT: 1. The patient's breathing has vastly improved after starting dialysis and getting fluid off. 2. Chronic obstructive pulmonary disease, now back to baseline. PLAN: From my standpoint, he is clear for discharge. No further Pulmonary recommendations. We will sign off the case. Job ID: [id number]
[2018-06-04 10:11] LABS: Band 1 % (5-11); Lymphocytes 27 % (21-51); MDiff Complete? YES; Monocytes 4 % (0-10); Neutrophil 68 % (42-75); Platelet Morphology Comment Appears Adequate; Polychromasia SLIGHT = 2-3 cells (100X) (0-2/hpf); Stomatocytes SLIGHT = 2-5 cells (100X) (0-1/hpf)
[2018-06-04] MEDS: HumaLOG 300 UNITS/3 ML VIAL SC PRN (12:29)
[2018-06-04] MEDS ORDERED: Nicotine 21 MG PATCH TOP SCH (12:30)
[2018-06-04 17:18] VITALS: BP 99/56; TEMP 97.6
--- NOTE | 2018-06-04 18:35 | PRG ---
DATE OF SERVICE: 06/04/2018 SUBJECTIVE: Patient was seen and examined at bedside and overnight events noted. Patient denies any shortness of breath or chest pain or palpitation. No history of nausea or vomiting or diarrhea or fever or chills or cramps. OBJECTIVE: GENERAL: This is a well-built male, in no apparent distress. VITAL SIGNS: Temperature 97.6. Pulse 72. Respiratory rate 18. Blood pressure 98/59. HEENT: Atraumatic, normocephalic. Oral mucosa is moist NECK: Supple. CARDIOVASCULAR: S1, S2 heard. Rate and rhythm regular. RESPIRATORY: Clear to auscultation. GASTROINTESTINAL: Abdomen is soft. MUSCULOSKELETAL: No tenderness. No edema. DERMATOLOGIC: No skin rash. NEUROLOGIC: Alert and awake and oriented X3. No focal neurologic deficits. Moving all the extremities. PSYCHIATRIC: Mood and affect normal. LABORATORY DATA: Potassium 4.0, BUN is 38, and creatinine is 3.7. ASSESSMENT AND PLAN: 1. End-stage renal disease. Continue on hemodialysis as tolerated. 2. Edema. We will remove fluid. Dialysis as tolerated. 3. Hypertension. 4. Anemia. Plan is to continue on dialysis on Sunday, Sunday, and Sunday. We will follow. Job ID: [id number]
--- NOTE | 2018-06-05 07:17 | DIS ---
DATE OF ADMISSION: 05/22/2018 DATE OF DISCHARGE: 06/04/2018 DISCHARGE DIAGNOSES: 1. Acute respiratory failure with hypoxia and hypercarbia. 2. Acute on chronic diastolic heart failure. 3. Chronic obstructive pulmonary disease exacerbation. 4. Uncontrolled hypertension. 5. Acute kidney injury. 6. Chronic kidney disease, now end-stage renal disease, on hemodialysis. 7. Obstructive sleep apnea, on CPAP. 8. Anasarca due to chronic kidney disease and congestive heart failure. 9. Morbid obesity. 10. Type 2 diabetes mellitus. 11. Paroxysmal atrial fibrillation. 12. Hyperlipidemia. 13. Benign prostatic hypertrophy. 14. Gouty arthropathy. CONSULTS: 1. Pulmonology. 2. Nephrology. 3. Cardiology. 4. General Surgery. HOSPITAL COURSE: A 72-year-old male with known history of obstructive sleep apnea, COPD, diastolic heart failure, and diabetes, who has not been compliant on medications, admitted due to worsening shortness of breath and swelling as well as cough. The patient on presentation was found to be tachycardic with low oxygen saturation. The patient also was found to have tachycardia, which was concerning for PE and was started on anticoagulation for possible PE. Impression of acute respiratory failure with hypoxia and hypercarbia from COPD exacerbation and CHF exacerbation was made. The patient also was found to have acute kidney injury superimposed on chronic kidney disease. He was seen by Cardiology, Nephrology, and Pulmonology. The patient initially was started on broad-spectrum antibiotic, steroid, bronchodilators, and oxygen with improvement. Creatinine on presentation was 2.93, but this increased to a peak of 4.81 due to diuresis and then, was felt to have end-stage renal disease and was started on dialysis, which essentially was to help with volume management. General condition improved with dialysis and the patient's weight went down from 239 on presentation to 186 on discharge. There was some concern about atrial flutter, but Cardiology saw the patient and was obvious that this is sinus tachycardia, hence there was no consideration for chronic anticoagulation. The patient also was started on oral hypoglycemic agent as well as sliding scale insulin with improvement in glycemic control. He was later discharged on only oral hypoglycemic agent with a view to follow up with PCP for further glycemic management modification. The patient also was seen by General Surgery and AV fistula creation as well as tunneled catheter were placed. PROCEDURES: Right internal jugular cuffed tunneled hemodialysis catheter under ultrasound, fluoroscopy and left arm AV fistula between the cephalic vein and radial artery. PHYSICAL EXAMINATION: VITAL SIGNS: Temperature 98.5, pulse 72, respiratory rate 18, SpO2 of 97 on room air, and blood pressure is 112/61. GENERAL: Obese male, in no obvious distress. Afebrile. Anicteric. Acyanotic. HEENT: Normocephalic and atraumatic. CARDIOVASCULAR: Regular rhythm and rate with normal heart sounds. RESPIRATORY: Good air entry bilaterally with no obvious crackle or rhonchi or use of accessory muscles. GI: Obese, soft, nontender, and nondistended with normal bowel sounds. EXTREMITIES: [id number] bilateral leg edema. NEUROLOGIC: Conscious, alert, and oriented x3 with appropriate mental status. The patient is ambulant. DISCHARGE CONDITION: Improved. DISCHARGE MEDICATIONS: 1. Allopurinol 300 mg p.o. daily. 2. Lipitor 20 mg p.o. daily. 3. Pepcid 20 mg p.o. daily. 4. Nicotine patch 21 mg p.o. topically daily. 5. Aspirin 325 mg p.o. daily. 6. Carvedilol 12.5 mg p.o. b.i.d. 7. Clonidine 0.2 mg t.i.d. 8. Furosemide 80 mg p.o. b.i.d. 9. Glipizide 5 mg p.o. b.i.d. 10. Hydralazine 50 mg p.o. t.i.d. 11. Ipratropium-albuterol sulfate nebulization q.6 p.r.n. for shortness of breath. 12. Sennoside-docusate 8.6/50 mg two tablets p.o. b.i.d. for constipation. Of note, EKATERINA inhibitor was held due to renal failure and hyperkalemia. FOLLOWUPS: 1. The patient is to follow up with Dr. Ryan, General Surgery in 3 to 4 weeks. 2. The patient is to follow up with Cardiology in 2 to 3 weeks. 3. The patient is to follow up with PCP in 1 week. 4. The patient will follow up with chief technician x ray at the dialysis unit. TIME SPENT: This discharge took more than 40 minutes. Job ID: [id number]
== END 2018-06-04 17:24 | disposition home health service (06) | DRG 264 ==
LOC: ERS 15:24 → 2NO 16:48 → CCU 05-27 17:24 → 2NO 05-31 16:43 → T4-A 06-03 13:08
PROVIDERS: ADMIT Emergency Medicine; ATTEND Emergency Medicine
PROC: 031C09F Bypass Left Radial Artery to Lower Arm Vein with Autologous Venous Tissue, Open Approach (ICD-10-PCS; principal; 2018-05-27)
PROC: 0JH63XZ Insertion of Tunneled Vascular Access Device into Chest Subcutaneous Tissue and Fascia, Percutaneous Approach (ICD-10-PCS; 2018-05-27)
PROC: 05HM33Z Insertion of Infusion Device into Right Internal Jugular Vein, Percutaneous Approach (ICD-10-PCS; 2018-05-27)
PROC: B5131ZA Fluoroscopy of Right Jugular Veins using Low Osmolar Contrast, Guidance (ICD-10-PCS; 2018-05-27)
PROC: 0WHR8YZ Insertion of Other Device into Genitourinary Tract, Via Natural or Artificial Opening Endoscopic (ICD-10-PCS; 2018-05-27)
PROC: 0BH17EZ Insertion of Endotracheal Airway into Trachea, Via Natural or Artificial Opening (ICD-10-PCS; 2018-05-27)
PROC: 5A1935Z Respiratory Ventilation, Less than 24 Consecutive Hours (ICD-10-PCS; 2018-05-27)
PROC: 5A1D70Z Performance of Urinary Filtration, Intermittent, Less than 6 Hours Per Day (ICD-10-PCS; 2018-05-27)
PROC: 06HN33Z Insertion of Infusion Device into Left Femoral Vein, Percutaneous Approach (ICD-10-PCS; 2018-05-28)
PROC: 5A1D70Z Performance of Urinary Filtration, Intermittent, Less than 6 Hours Per Day (ICD-10-PCS; 2018-05-28)
PROC: 5A1D70Z Performance of Urinary Filtration, Intermittent, Less than 6 Hours Per Day (ICD-10-PCS; 2018-05-30)
PROC: 5A1D70Z Performance of Urinary Filtration, Intermittent, Less than 6 Hours Per Day (ICD-10-PCS; 2018-06-01)
PROC: 5A1D70Z Performance of Urinary Filtration, Intermittent, Less than 6 Hours Per Day (ICD-10-PCS; 2018-06-03)
DX: I13.2 Hypertensive heart and chronic kidney disease with heart failure and with stage 5 chronic kidney disease, or end stage renal disease (principal); I50.33 Acute on chronic diastolic (congestive) heart failure; N18.6 End stage renal disease; J96.21 Acute and chronic respiratory failure with hypoxia; I46.9 Cardiac arrest, cause unspecified; J96.22 Acute and chronic respiratory failure with hypercapnia; J44.1 Chronic obstructive pulmonary disease with (acute) exacerbation; N17.9 Acute kidney failure, unspecified; E87.2 Acidosis; E11.22 Type 2 diabetes mellitus with diabetic chronic kidney disease; F17.210 Nicotine dependence, cigarettes, uncomplicated; I35.1 Nonrheumatic aortic (valve) insufficiency; I07.1 Rheumatic tricuspid insufficiency; I34.0 Nonrheumatic mitral (valve) insufficiency; E78.5 Hyperlipidemia, unspecified; E88.81 Metabolic syndrome and other insulin resistance; E66.01 Morbid (severe) obesity due to excess calories; Z68.30 Body mass index [BMI] 30.0-30.9, adult; R00.0 Tachycardia, unspecified; I95.9 Hypotension, unspecified; G47.33 Obstructive sleep apnea (adult) (pediatric); I44.0 Atrioventricular block, first degree; M10.9 Gout, unspecified; N40.0 Benign prostatic hyperplasia without lower urinary tract symptoms; E87.5 Hyperkalemia; D64.9 Anemia, unspecified; R31.0 Gross hematuria; I27.81 Cor pulmonale (chronic); E11.649 Type 2 diabetes mellitus with hypoglycemia without coma; Z79.84 Long term (current) use of oral hypoglycemic drugs; Z79.82 Long term (current) use of aspirin; Z79.899 Other long term (current) drug therapy; Z99.81 Dependence on supplemental oxygen; Z83.6 Family history of other diseases of the respiratory system; Z91.14 Patient's other noncompliance with medication regimen
CPT/HCPCS: 36415; 36416; 71045; 71046; 74018; 76770; 78582; 80048; 82805; 83880; 84484; 85007; 85025; 85027; 86580; 86704; 86706; 86803; 87040; 87340; 90935; 93005; 93010; 93306; 93798; 93970; 94002; 94003; 94640; A9540; A9558; C1752; C1769; G0257; G0365; J0456; J0670; J1100; J1610; J1642; J1644; J1940; J2001; J2250; J2704; J2720; J2795; J2920; J3010; J7050; J7620; Q9967

== ENCOUNTER 2019-06-13 14:41 | Outpatient (CLI) | payer MEDICARE ==
--- NOTE | 2019-06-13 16:18 | RAD ---
TWO VIEWS CHEST: 06/13/19 PROVIDED CLINICAL HISTORY: Positive TB test. FINDINGS: Comparison 05/28/18. Cardiac and mediastinal silhouette is within normal limits. The lungs appear clear. No pleural fluid or pneumothorax apparent. Vascular calcification is noted involving the aortic arch. IMPRESSION: No radiographic evidence for post primary pulmonary tuberculosis. POS: [facility]
== END 2019-06-13 14:42 | disposition home or self-care (01) ==
LOC: BICRAD 14:41
PROVIDERS: ATTEND Internal Medicine Nephrology
DX: R76.11 Nonspecific reaction to tuberculin skin test without active tuberculosis (principal)
CPT/HCPCS: 71046

== ENCOUNTER 2020-12-10 10:08 | Outpatient (CLI) | payer MEDICARE ==
[2020-12-11 01:38] LABS: SARS-CoV-2 PCR by NAA Not Detected (NotDetected)
== END 2020-12-10 10:09 | disposition home or self-care (01) ==
LOC: LABBT 10:08
PROVIDERS: ATTEND Ophthalmology Retina Specialist
DX: Z01.812 Encounter for preprocedural laboratory examination (principal); H57.12 Ocular pain, left eye; Z20.822 Contact with and (suspected) exposure to COVID-19
CPT/HCPCS: U0003; U0005

== ENCOUNTER 2020-12-14 07:26 | Day surgery (SDC) | payer MEDICARE ==
[2020-12-13 17:39] VITALS: BMI 33.2
[~2020-12-14 07:26] MED LIST: EPINEPHrine 0.3 MG in Ophthalmic Irrigation Solution 500 ML IRR SCH
[2020-12-14] MEDS ORDERED: Cyclopentolate 1% Opth Drop 2 ML BOT ONE (07:33)
[2020-12-14] MEDS ORDERED: Phenylephrine 2.5% Ophth Soln 5 ML BOT ONE (07:33)
[2020-12-14] MEDS ORDERED: Fentanyl 100 MCG/2 ML VIAL ONE (09:13)
[2020-12-14] MEDS ORDERED: Famotidine/PF 20 mg/2ml Vial ONE (09:13)
[2020-12-14] MEDS ORDERED: CEFAZOLIN 1 GM VIAL ONE (09:23)
[2020-12-14] MEDS ORDERED: Bupivacaine PF 0.75% SDV 10 ML ONE (09:23)
[2020-12-14] MEDS ORDERED: Triamcinolone 40 MG/ML VIAL ONE (09:23)
[2020-12-14] MEDS ORDERED: PROPOFOL 200 MG/20 ML VIAL ONE (09:23)
[2020-12-14] MEDS ORDERED: Maxitrol 0.1% Opth Oint 3.5 GM TUBE ONE (09:23)
[2020-12-14] MEDS ORDERED: Lidocaine 4% PF 5 ML AMP ONE (09:23)
[2020-12-14] MEDS ORDERED: Ondansetron PF 4 MG/2 ML Vial ONE (09:23)
[2020-12-14] MEDS ORDERED: Lidocaine 1% PF 5 ML VIAL ONE ×2 (09:23)
[2020-12-14] MEDS ORDERED: Metoclopramide HCl 10 MG/2 ML VIAL ONE (09:23)
== END 2020-12-14 12:37 | disposition home or self-care (01) ==
LOC: SDC 07:26
PROVIDERS: ATTEND Ophthalmology Retina Specialist
PROC: 08T53ZZ Resection of Left Vitreous, Percutaneous Approach (ICD-10-PCS; principal; 2020-12-14)
PROC: 08RK3JZ Replacement of Left Lens with Synthetic Substitute, Percutaneous Approach (ICD-10-PCS; 2020-12-14)
DX: H27.02 Aphakia, left eye (principal); H43.392 Other vitreous opacities, left eye; Z79.82 Long term (current) use of aspirin
CPT/HCPCS: 36416; J0171; J0690; J2405; J2704; J2765; J3010; J3301; J3490; S0028

== ENCOUNTER 2022-04-24 19:00 | Outpatient (CLI) | payer OTHER | END 2022-04-24 19:01 | disposition home or self-care (01) | LOC: SLEEPLAB 19:00 | PROVIDERS: ATTEND Nurse Practitioner Family | DX: G47.33 Obstructive sleep apnea (adult) (pediatric) (principal) | CPT/HCPCS: 95811 ==

== ENCOUNTER 2023-08-23 19:36 | Inpatient (IN) | payer MEDICARE, OTHER ==
[2023-08-23 22:22] VITALS: BMI 31.4
[2023-08-23] MEDS ORDERED: Ondansetron PF 4 MG/2 ML Vial IVP PRN (23:51)
[2023-08-23] MEDS ORDERED: Ondansetron ODT 4 MG TAB PO PRN (23:51)
[2023-08-23] MEDS ORDERED: Acetaminophen 650 MG Suppository PR PRN (23:51)
[2023-08-23] MEDS ORDERED: Dextrose 5% in Water 1,000 ML IV PRN (23:56)
[2023-08-23] MEDS ORDERED: Dextrose 50% Abboject 50 ML SYRINGE SLOW IVP PRN (23:56)
[2023-08-23] MEDS ORDERED: Glucagon 1 MG/ML KIT IM PRN (23:56)
[2023-08-24] MEDS ORDERED: Ipratropium/Albuterol 3 ML NEB NEB PRN (00:07)
[2023-08-24] MEDS ORDERED: Insulin Lispro 100 UNIT/ML 10 ML VIAL SC PRN (00:19)
[2023-08-24] MEDS: Ipratropium/Albuterol 3 ML NEB NEB SCH (01:02)
[2023-08-24 01:34] LABS: Influenza A by NAA Not Detected (NotDetected); Influenza B by NAA Not Detected (NotDetected); SARS-CoV-2 NAA Rapid Test Not Detected (NotDetected)
[2023-08-24 05:31] LABS: Anion Gap 19 mmol/L (10-20); BUN (Urea Nitrogen) 44 mg/dL (8.4-25.7); Calc. Creatinine Clearance 14 mL/min (70-130); Calcium 8.3 mg/dL (7.8-10.44); Carbon Dioxide 23 mmol/L (23-31); Chloride 99 mmol/L (98-107); Estimated GFR 10; Glucose 246 mg/dL (83-110); Potassium 5.7 mmol/L (3.5-5.1); Sodium 135 mmol/L (136-145)
[2023-08-24] MEDS: Insulin Lispro 100 UNIT/ML 10 ML VIAL SC PRN (05:47)
[2023-08-24 06:08] LABS: Hematocrit 31.4 % (42.0-52.0); Hemoglobin 10.5 g/dL (14.0-18.0); Mean Corpuscular HGB CONC 33.4 g/dL (32.0-36.0); Mean Corpuscular Hemoglobin 29.7 pg (27.0-31.0); Mean Platelet Volume 11.7 fL (7.4-10.4); Platelet Count 163 10x3/uL (130-400); RBC Distribution Width 14.4 % (11.5-14.5); Red Blood Cell (RBC) Count 3.53 mill/uL (4.70-6.10)
[2023-08-24 07:05] LABS: Anisocytosis SLIGHT = 6-15 cells HPF (0-5); Band 37 % (5-11); Lymphocytes 2 % (21-51); Macrocytosis SLIGHT = 6-15 cells HPF (0-5); Neutrophil 61 % (42-75); Platelet Adequacy Comment Platelets Normal
[2023-08-24] MEDS ORDERED: Bisacodyl 5 MG TAB PO PRN (09:38)
[2023-08-24 09:58] LABS: HBSAB Concentration Less than 8.00 mIU/mL; Hep B Surf AB NONREACTIVE (NonReactive); Hep B Surf Ag NONREACTIVE S/CO (NonReactive); Hep C IgG Ab NONREACTIVE S/CO (NonReactive)
[2023-08-24] MEDS: methylPREDNISolone Sod Succ 40 MG VIAL IVP SCH ×2 (10:06→21:04)
[2023-08-24] MEDS: Polyethylene Glycol 3350 17 GM Packet PO SCH (10:06)
[2023-08-24 10:34] LABS: Hep B Core Total Ab REACTIVE (NonReactive)
[2023-08-24 10:43] LABS: Hep B Core Total Index 4.47 S/CO (0-0.79)
[2023-08-24] MEDS ORDERED: Heparin 10,000 UNITS/ 10 ML VIAL ONE (13:50)
[2023-08-24] MEDS: Acetaminophen 325 MG TAB PO PRN (16:33)
[2023-08-24] MEDS: Azithromycin 500 MG in Sodium Chloride 0.9% 250 ML 250 ML IVPB SCH (18:40)
[2023-08-24] MEDS: cefTRIAXone\\ROCEPHIN 1 GM in Sodium Chloride 0.9% 100 ML IVPB SCH (18:40)
[2023-08-24 19:59] LABS: Hematocrit 37.2 % (42.0-52.0); Hemoglobin 12.7 g/dL (14.0-18.0); Mean Corpuscular HGB CONC 34.1 g/dL (32.0-36.0); Mean Corpuscular Hemoglobin 29.4 pg (27.0-31.0); Mean Corpuscular Volume 86.1 fL (78.0-98.0); Mean Platelet Volume 11.6 fL (7.4-10.4); Platelet Count 134 10x3/uL (130-400); RBC Distribution Width 14.1 % (11.5-14.5); Red Blood Cell (RBC) Count 4.32 mill/uL (4.70-6.10)
[2023-08-24 20:12] LABS: Band 16 % (5-11); Lymphocytes 1 % (21-51); Neutrophil 83 % (42-75); Platelet Adequacy Comment Platelets Normal
[2023-08-24] MEDS ORDERED: Vancomycin 1.5 GM in Sodium Chloride 0.9% 250 ML 300 ML IVPB SCH (20:15)
[2023-08-24] MEDS ORDERED: Vancomycin Diaylsis Sliding Scale (Wt 71-99) FS SCH (20:15)
[2023-08-24] MEDS: Vancomycin (BATCH) 1.75 GM in Premix 1 BAG IVPB SCH (21:04)
[2023-08-24] MEDS: Ipratropium/Albuterol 3 ML NEB NEB PRN (23:45)
[2023-08-25 05:29] LABS: Hematocrit 34.3 % (42.0-52.0); Hemoglobin 11.3 g/dL (14.0-18.0); Mean Corpuscular HGB CONC 32.9 g/dL (32.0-36.0); Mean Corpuscular Hemoglobin 29.9 pg (27.0-31.0); Mean Corpuscular Volume 90.7 fL (78.0-98.0); Mean Platelet Volume 10.7 fL (7.4-10.4); Platelet Count 162 10x3/uL (130-400); RBC Distribution Width 14.2 % (11.5-14.5); Red Blood Cell (RBC) Count 3.78 mill/uL (4.70-6.10)
[2023-08-25 05:58] LABS: ALT (SGPT) 18 U/L (8-55); AST (SGOT) 20 U/L (5-34); Albumin 3.3 g/dL (3.4-4.8); Alkaline Phosphatase 91 U/L (40-110); Anion Gap 19 mmol/L (10-20); BUN (Urea Nitrogen) 33 mg/dL (8.4-25.7); Band 22 % (5-11); Bilirubin, Total 0.3 mg/dL (0.2-1.2); Calc. Creatinine Clearance 20 mL/min (70-130); Calcium 8.9 mg/dL (7.8-10.44); Carbon Dioxide 25 mmol/L (23-31); Chloride 98 mmol/L (98-107); Estimated GFR 15; Globulin 4.6 g/dL (2.4-3.5); Glucose 186 mg/dL (83-110); Lymphocytes 1 % (21-51); Monocytes 3 % (0-10); Neutrophil 74 % (42-75); Platelet Adequacy Comment Platelets Normal; Potassium 5.5 mmol/L (3.5-5.1); Protein, Total 7.9 g/dL (5.8-8.1); RBC Morphology Within Normal Limits; Sodium 136 mmol/L (136-145)
[2023-08-25] MEDS: predniSONE 20 MG TAB PO SCH (08:58)
[2023-08-25] MEDS: Polyethylene Glycol 3350 17 GM Packet PO SCH (08:58)
[2023-08-25 13:26] LABS: Vancomycin, Trough 15.6 ug/mL
[2023-08-25 13:27] LABS: Anion Gap 20 mmol/L (10-20); BUN (Urea Nitrogen) 38 mg/dL (8.4-25.7); Calc. Creatinine Clearance 18 mL/min (70-130); Calcium 9.3 mg/dL (7.8-10.44); Carbon Dioxide 24 mmol/L (23-31); Chloride 97 mmol/L (98-107); Estimated GFR 14; Glucose 152 mg/dL (83-110); Potassium 5.3 mmol/L (3.5-5.1); Sodium 136 mmol/L (136-145)
[2023-08-25] MEDS: LOKELMA 10 GM PACKET PO SCH (15:25)
[2023-08-25] MEDS: Vancomycin HCl 750 MG in Sodium Chloride 0.9% 250 ML 250 ML IVPB SCH (17:19)
[2023-08-26 05:10] LABS: Anion Gap 19 mmol/L (10-20); BUN (Urea Nitrogen) 48 mg/dL (8.4-25.7); Calc. Creatinine Clearance 16 mL/min (70-130); Carbon Dioxide 22 mmol/L (23-31); Chloride 100 mmol/L (98-107); Estimated GFR 12; Glucose 114 mg/dL (83-110); Potassium 4.9 mmol/L (3.5-5.1); Sodium 136 mmol/L (136-145)
[2023-08-26] MEDS: Losartan 25 MG TAB PO SCH (12:05)
[2023-08-26 12:11] VITALS: BP 186/85; TEMP 98
[2023-08-27] MEDS ORDERED: Losartan 25 MG TAB PO SCH (09:00)
[2023-08-28] MEDS ORDERED: Heparin 10,000 UNITS/ 10 ML VIAL ONE (09:10)
== END 2023-08-26 13:24 | disposition home or self-care (01) | DRG 871 ==
LOC: 2NO 20:39
PROVIDERS: ADMIT Family Medicine; ATTEND Internal Medicine
DX: A41.9 Sepsis, unspecified organism (principal); J18.9 Pneumonia, unspecified organism; N18.6 End stage renal disease; I12.0 Hypertensive chronic kidney disease with stage 5 chronic kidney disease or end stage renal disease; J44.1 Chronic obstructive pulmonary disease with (acute) exacerbation; I13.2 Hypertensive heart and chronic kidney disease with heart failure and with stage 5 chronic kidney disease, or end stage renal disease; E78.5 Hyperlipidemia, unspecified; D72.829 Elevated white blood cell count, unspecified; E11.22 Type 2 diabetes mellitus with diabetic chronic kidney disease; E87.5 Hyperkalemia; D72.825 Bandemia; R59.1 Generalized enlarged lymph nodes; I50.9 Heart failure, unspecified; D63.1 Anemia in chronic kidney disease; F17.200 Nicotine dependence, unspecified, uncomplicated; Z90.49 Acquired absence of other specified parts of digestive tract; Z99.2 Dependence on renal dialysis
CPT/HCPCS: 36415; 36416; 80048; 80053; 80202; 83735; 84145; 85025; 86704; 86706; 86803; 87340; 94640; J0456; J0696; J1644; J1815; J2920; J3370; J3490; J7050; J7512; J7620

== ENCOUNTER 2023-08-28 14:06 | Inpatient (IN) | payer OTHER ==
[2023-08-28 14:46] LABS: #Basophils 0.03 10x3/uL (0.0-0.2); %Basophils 0.1 % (0.0-1.0); %Eosinophils 0.2 % (0.0-10.0); %Lymphocytes 8.7 % (21.0-51.0); %Monocytes 4.3 % (0.0-10.0); %Neutrophils 84.6 % (42.0-75.0); Hematocrit 31.1 % (42.0-52.0); Hemoglobin 10.7 g/dL (14.0-18.0); Mean Corpuscular HGB CONC 34.4 g/dL (32.0-36.0); Mean Corpuscular Hemoglobin 30.1 pg (27.0-31.0); Mean Corpuscular Volume 87.4 fL (78.0-98.0); Mean Platelet Volume 11.8 fL (7.4-10.4); Platelet Count 187 10x3/uL (130-400); RBC Distribution Width 13.9 % (11.5-14.5); Red Blood Cell (RBC) Count 3.56 mill/uL (4.70-6.10)
[2023-08-28] MEDS ORDERED: Ipratropium/Albuterol 3 ML NEB ONE (14:57)
[2023-08-28 15:09] LABS: ALT (SGPT) 56 U/L (8-55); AST (SGOT) 49 U/L (5-34); Albumin 2.9 g/dL (3.4-4.8); Alkaline Phosphatase 104 U/L (40-110); Anion Gap 18 mmol/L (10-20); BUN (Urea Nitrogen) 46 mg/dL (8.4-25.7); Bilirubin, Total 0.4 mg/dL (0.2-1.2); Calc. Creatinine Clearance 0 mL/min (70-130); Calcium 8.4 mg/dL (7.8-10.44); Carbon Dioxide 26 mmol/L (23-31); Chloride 100 mmol/L (98-107); Estimated GFR 12; Globulin 4.2 g/dL (2.4-3.5); Glucose 167 mg/dL (83-110); Potassium 4.2 mmol/L (3.5-5.1); Protein, Total 7.1 g/dL (5.8-8.1); Sodium 140 mmol/L (136-145)
[2023-08-28] MEDS ORDERED: Ondansetron PF 4 MG/2 ML Vial ONE (15:11)
[2023-08-28 15:15] LABS: Troponin I 0.089 ng/mL (< 0.028)
[2023-08-28] MEDS ORDERED: Sodium Chloride 0.9% 100 ML ONE (15:57)
[2023-08-28] MEDS ORDERED: Furosemide 40 MG (4 mL) VIAL ONE (15:57)
[2023-08-28] MEDS ORDERED: Cefepime 2 GM VIAL ONE (15:57)
[2023-08-28] MEDS ORDERED: Aspirin Chewable 81 MG TAB ONE (15:59)
[2023-08-28 16:26] LABS: INR-International Normal Ratio 1.1; PTT 37.6 sec (22.9-36.1); Prothrombin Time 14.1 sec (12.0-14.7)
[2023-08-28] MEDS ORDERED: Vancomycin 1 GM/200 ML (FROZEN) BAG ONE (17:33)
[2023-08-28 18:25] VITALS: BMI 32.4
[2023-08-28] MEDS ORDERED: Dextrose 5% in Water 1,000 ML IV PRN (18:30)
[2023-08-28] MEDS ORDERED: Ondansetron PF 4 MG/2 ML Vial IVP PRN (18:30)
[2023-08-28] MEDS ORDERED: Dextrose 50% Abboject 50 ML SYRINGE SLOW IVP PRN (18:30)
[2023-08-28] MEDS ORDERED: Acetaminophen 325 MG TAB PO PRN (18:30)
[2023-08-28] MEDS ORDERED: Glucagon 1 MG/ML KIT IM PRN (18:30)
[2023-08-28] MEDS ORDERED: Acetaminophen 650 MG Suppository PR PRN (18:30)
[2023-08-28] MEDS ORDERED: Bisacodyl 10 MG SUPP PR PRN (18:30)
[2023-08-28] MEDS ORDERED: Senokot S 8.6-50 MG TAB PO PRN (18:30)
[2023-08-28] MEDS ORDERED: Ondansetron ODT 4 MG TAB PO PRN (18:30)
[2023-08-28] MEDS ORDERED: Insulin Lispro 100 UNIT/ML 10 ML VIAL SC PRN (18:38)
[2023-08-28] MEDS ORDERED: Albuterol 2.5 MG (3 mL) NEB NEB PRN (18:39)
[2023-08-28] MEDS ORDERED: GUAIFENESIN SF SOLN 200 MG/10 ML UDCUP PO PRN (18:41)
[2023-08-28 19:27] LABS: Lactic Acid 1.9 mmol/L (0.5-2.2)
[2023-08-28 19:40] LABS: Troponin I 0.089 ng/mL (< 0.028)
[2023-08-28] MEDS: Ipratropium Bromide 2.5 ml Neb NEB SCH (20:53)
[2023-08-28] MEDS ORDERED: Vancomycin 1 GM in Premix 1 BAG IVPB SCH (21:00)
[2023-08-28] MEDS ORDERED: Cefepime 1 GM in Sodium Chloride 0.9% 100 ML IVPB SCH (21:00)
[2023-08-28] MEDS: Famotidine/PF 20 mg/2ml Vial SLOW IVP SCH (21:00)
[2023-08-28] MEDS: methylPREDNISolone Sod Succ 40 MG VIAL IVP SCH (21:00)
[2023-08-28] MEDS: Vancomycin (BATCH) 1.25 GM in Premix 1 BAG IVPB SCH (22:57)
[2023-08-29 03:57] LABS: #Basophils 0.06 10x3/uL (0.0-0.2); %Basophils 0.3 % (0.0-1.0); %Eosinophils 0.7 % (0.0-10.0); %Lymphocytes 8.7 % (21.0-51.0); %Monocytes 4.8 % (0.0-10.0); %Neutrophils 81.7 % (42.0-75.0); Hematocrit 34.9 % (42.0-52.0); Hemoglobin 11.4 g/dL (14.0-18.0); Mean Corpuscular HGB CONC 32.7 g/dL (32.0-36.0); Mean Corpuscular Volume 91.8 fL (78.0-98.0); Mean Platelet Volume 11.2 fL (7.4-10.4); Platelet Count 180 10x3/uL (130-400); RBC Distribution Width 14.3 % (11.5-14.5)
[2023-08-29 04:35] LABS: ALT (SGPT) 56 U/L (8-55); AST (SGOT) 41 U/L (5-34); Albumin 2.6 g/dL (3.4-4.8); Alkaline Phosphatase 104 U/L (40-110); Anion Gap 16 mmol/L (10-20); BUN (Urea Nitrogen) 26 mg/dL (8.4-25.7); Bilirubin, Total 0.5 mg/dL (0.2-1.2); Calc. Creatinine Clearance 25 mL/min (70-130); Calcium 8.5 mg/dL (7.8-10.44); Carbon Dioxide 22 mmol/L (23-31); Chloride 100 mmol/L (98-107); Estimated GFR 19; Globulin 4.7 g/dL (2.4-3.5); Glucose 101 mg/dL (83-110); Potassium 3.9 mmol/L (3.5-5.1); Protein, Total 7.3 g/dL (5.8-8.1); Sodium 134 mmol/L (136-145)
[2023-08-29] MEDS ORDERED: Famotidine 20 MG TAB PO SCH (09:00)
[2023-08-29] MEDS ORDERED: Vancomycin Diaylsis Sliding Scale (Wt 71-99) FS SCH (13:00)
[2023-08-29] MEDS: Atorvastatin Calcium 20 MG TAB PO SCH (13:51)
[2023-08-29] MEDS: glipiZIDE 5 MG TAB PO SCH (13:51)
[2023-08-29] MEDS: Cefepime 0.5 GM, Admixture Fee 1 EACH in Sodium Chloride 0.9% 100 ML IVPB SCH (13:52)
[2023-08-29] MEDS ORDERED: Vancomycin HCl 500 MG in Sodium Chloride 0.9% 100 ML IVPB SCH (18:00)
[2023-08-29] MEDS: Famotidine/PF 20 mg/2ml Vial SLOW IVP SCH (20:36)
[2023-08-30 07:35] LABS: #Basophils 0.04 10x3/uL (0.0-0.2); %Basophils 0.3 % (0.0-1.0); %Eosinophils 2.5 % (0.0-10.0); %Lymphocytes 15.4 % (21.0-51.0); %Monocytes 5.3 % (0.0-10.0); %Neutrophils 71.9 % (42.0-75.0); Hematocrit 34.2 % (42.0-52.0); Hemoglobin 11.3 g/dL (14.0-18.0); Mean Corpuscular Hemoglobin 30.1 pg (27.0-31.0); Mean Corpuscular Volume 91.2 fL (78.0-98.0); Mean Platelet Volume 11.8 fL (7.4-10.4); Platelet Count 198 10x3/uL (130-400); RBC Distribution Width 14.4 % (11.5-14.5); Red Blood Cell (RBC) Count 3.75 mill/uL (4.70-6.10)
[2023-08-30 08:01] LABS: Anion Gap 17 mmol/L (10-20); BUN (Urea Nitrogen) 24 mg/dL (8.4-25.7); Calc. Creatinine Clearance 21 mL/min (70-130); Calcium 8.5 mg/dL (7.8-10.44); Carbon Dioxide 23 mmol/L (23-31); Chloride 101 mmol/L (98-107); Estimated GFR 17; Glucose 56 mg/dL (83-110); Sodium 137 mmol/L (136-145)
[2023-08-30] MEDS: predniSONE 20 MG TAB PO SCH (09:23)
[2023-08-30] MEDS: Insulin Lispro 100 UNIT/ML 10 ML VIAL SC PRN (17:11)
[2023-08-30] MEDS: Cefepime 1 GM in Sodium Chloride 0.9% 100 ML IVPB SCH (17:50)
[2023-08-30 20:59] VITALS: TEMP 98
[2023-08-31 04:00] LABS: #Basophils 0.03 10x3/uL (0.0-0.2); #Eosinphils Less than 0.03 10x3/uL (0.0-0.7); %Basophils 0.2 % (0.0-1.0); %Monocytes 3.5 % (0.0-10.0); %Neutrophils 85.5 % (42.0-75.0); Hematocrit 30.8 % (42.0-52.0); Hemoglobin 10.5 g/dL (14.0-18.0); Mean Corpuscular HGB CONC 34.1 g/dL (32.0-36.0); Mean Corpuscular Hemoglobin 30.1 pg (27.0-31.0); Mean Corpuscular Volume 88.3 fL (78.0-98.0); Mean Platelet Volume 11.3 fL (7.4-10.4); Platelet Count 220 10x3/uL (130-400); RBC Distribution Width 13.8 % (11.5-14.5); Red Blood Cell (RBC) Count 3.49 mill/uL (4.70-6.10)
[2023-08-31 04:16] LABS: Anion Gap 16 mmol/L (10-20); BUN (Urea Nitrogen) 43 mg/dL (8.4-25.7); Calc. Creatinine Clearance 15 mL/min (70-130); Calcium 8.2 mg/dL (7.8-10.44); Carbon Dioxide 25 mmol/L (23-31); Chloride 99 mmol/L (98-107); Estimated GFR 11; Glucose 170 mg/dL (83-110); Potassium 4.8 mmol/L (3.5-5.1); Sodium 135 mmol/L (136-145)
[2023-08-31 05:08] VITALS: BP 172/81
[2023-08-31 07:22] LABS: Vancomycin, Trough 19.6 ug/mL
[2023-08-31] MEDS ORDERED: Heparin 10,000 UNITS/ 10 ML VIAL ONE (12:00)
[2023-08-31] MEDS ORDERED: Vancomycin HCl 750 MG in Sodium Chloride 0.9% 250 ML 250 ML IVPB SCH (17:00)
== END 2023-08-31 13:42 | disposition home or self-care (01) | DRG 291 ==
LOC: ERS 14:06 → 2SW 16:38 → OBSVTOIN 08-30 14:45
PROVIDERS: ADMIT Family Medicine; ATTEND Internal Medicine
DX: I13.2 Hypertensive heart and chronic kidney disease with heart failure and with stage 5 chronic kidney disease, or end stage renal disease (principal); I50.33 Acute on chronic diastolic (congestive) heart failure; J96.01 Acute respiratory failure with hypoxia; N18.6 End stage renal disease; J44.1 Chronic obstructive pulmonary disease with (acute) exacerbation; E78.5 Hyperlipidemia, unspecified; E11.22 Type 2 diabetes mellitus with diabetic chronic kidney disease; K59.00 Constipation, unspecified; D63.1 Anemia in chronic kidney disease; F17.210 Nicotine dependence, cigarettes, uncomplicated; Z98.890 Other specified postprocedural states; Z88.8 Allergy status to other drugs, medicaments and biological substances; Z79.84 Long term (current) use of oral hypoglycemic drugs; Z79.2 Long term (current) use of antibiotics; Z79.899 Other long term (current) drug therapy; Z90.49 Acquired absence of other specified parts of digestive tract; Z71.6 Tobacco abuse counseling
CPT/HCPCS: 36415; 36416; 71045; 80048; 80053; 80202; 83605; 83880; 84145; 84484; 85025; 85610; 85730; 87040; 93005; 94640; 96365; 96367; 96374; 96375; 96376; G0378; J0692; J1644; J1815; J1940; J2405; J3370; J3370-JW; J3490; J7512; J7620; S0028

== ENCOUNTER 2024-10-29 22:41 | Inpatient (IN) | payer OTHER ==
[2024-10-30] MEDS ORDERED: Acetaminophen 325 MG TAB PO PRN (00:17)
[2024-10-30] MEDS ORDERED: Glucagon 1 MG/ML KIT IM PRN (00:25)
[2024-10-30] MEDS ORDERED: Albuterol 200 PUFF INH INH PRN (00:47)
[2024-10-30 04:27] LABS: ALT (SGPT) 19 U/L (Less than 45); AST (SGOT) 37 U/L (11-34); Albumin 3.3 g/dL (3.1-4.5); Alkaline Phosphatase 114 U/L (40-110); Anion Gap 16 mmol/L (10-20); BUN (Urea Nitrogen) 36 mg/dL (8.4-25.7); Bilirubin, Total 0.5 mg/dL (0.3-1.2); Calc. Creatinine Clearance 11 mL/min (70-130); Calcium 8.3 mg/dL (7.8-10.44); Carbon Dioxide 28 mmol/L (23-31); Chloride 99 mmol/L (98-107); Globulin 4.5 g/dL (2.4-3.5); Glucose 201 mg/dL (83-110); Potassium 6.1 mmol/L (3.5-5.1); Sodium 137 mmol/L (136-145)
[2024-10-30 04:41] LABS: #Basophils Less than 0.03 10x3/uL (0.0-0.2); #Eosinophils Less than 0.03 10x3/uL (0.0-0.7); #Monocytes 0.73 10x3/uL (0.11-0.59); #Neutrophils 6.80 10x3/uL (1.40-6.50); %Basophils 0.2 % (0.0-1.0); %Eosinophils 0.1 % (0.0-10.0); %Lymphocytes 13.3 % (21.0-51.0); %Monocytes 8.3 % (0.0-10.0); %Neutrophils 77.8 % (42.0-75.0); Hematocrit 35.0 % (42.0-52.0); Hemoglobin 11.2 g/dL (14.0-18.0); Mean Corpuscular Hemoglobin 28.6 pg (27.0-31.0); Mean Corpuscular Volume 89.5 fL (78.0-98.0); Platelet Count 179 10x3/uL (130-400); Red Blood Cell (RBC) Count 3.91 mill/uL (4.70-6.10); White Blood Cell (WBC) Count 8.75 10x3/uL (4.8-10.8)
[2024-10-30 06:21] LABS: Anion Gap 17 mmol/L (10-20); BUN (Urea Nitrogen) 35 mg/dL (8.4-25.7); Calc. Creatinine Clearance 11 mL/min (70-130); Calcium 8.2 mg/dL (7.8-10.44); Carbon Dioxide 31 mmol/L (23-31); Chloride 96 mmol/L (98-107); Glucose 218 mg/dL (83-110); Potassium 6.3 mmol/L (3.5-5.1); Sodium 138 mmol/L (136-145)
[2024-10-30] MEDS: Apixaban 5 MG TAB PO SCH ×2 (10:30→20:24)
[2024-10-30 10:44] LABS: Actual Bicarbonate (HCO3a) 29.2 mEq/L (22-28); Base Excess (BEa) -2.7 mEq/L (-2.0 to +3.0); Calcium, Ionized (arterial) 1.13 mmol/L (1.12-1.30); Hematocrit-ABG 34 % (42.0-52.0); Hemoglobin (Hb) 11.7 g/dL (14.0-18.0); O2 Tension (PaO2), arterial 149.5 mmHg (> 70.0); Potassium - ABG Lab 4.52 mmol/L (3.70-5.30)
[2024-10-30 10:56] LABS: CO2 Tension 99.0 mmHg (35.0-45.0); pH, Arterial 7.088 (7.35-7.45)
[2024-10-30 11:53] LABS: Hep C Index 0.08 S/CO (0-0.79)
[2024-10-30 11:58] LABS: Hep C IgG Ab NONREACTIVE S/CO (NonReactive)
[2024-10-30 11:59] LABS: Hep B Surf Ag NONREACTIVE S/CO (NonReactive)
[2024-10-30] MEDS ORDERED: Heparin 5,000 UNITS/ML VIAL SC SCH (12:00)
[2024-10-30 12:58] LABS: Hep B Core Total Ab REACTIVE (NonReactive)
[2024-10-30 13:03] LABS: Actual Bicarbonate (HCO3a) 34.0 mEq/L (22-28); Base Excess (BEa) 2.3 mEq/L (-2.0 to +3.0); Calcium, Ionized (arterial) 1.11 mmol/L (1.12-1.30); Hematocrit-ABG 35 % (42.0-52.0); Hemoglobin (Hb) 12.0 g/dL (14.0-18.0); O2 Tension (PaO2), arterial 68.9 mmHg (> 70.0); Potassium - ABG Lab 4.68 mmol/L (3.70-5.30)
[2024-10-30 13:11] LABS: HBSAB Concentration 17.35 mIU/mL; Hep B Core Total Index 7.63 S/CO (0-0.79)
[2024-10-30] MEDS ORDERED: Heparin 10,000 UNITS/ 10 ML VIAL SLOW IVP SCH (14:00)
[2024-10-30 14:58] LABS: Anion Gap 17 mmol/L (10-20); BUN (Urea Nitrogen) 27 mg/dL (8.4-25.7); Calc. Creatinine Clearance 14 mL/min (70-130); Calcium 8.2 mg/dL (7.8-10.44); Carbon Dioxide 30 mmol/L (23-31); Chloride 97 mmol/L (98-107); Glucose 79 mg/dL (83-110); Potassium 5.3 mmol/L (3.5-5.1); Sodium 139 mmol/L (136-145)
[2024-10-30 16:52] LABS: Actual Bicarbonate (HCO3v) 30.1 mEq/L (22-28); Base Excess -1.8 mEq/L (-2.0 to +3.0); Calcium, Ionized (venous) 1.08 mmol/L (1.16-1.32); Chloride (VBG) 97 mmol/L (98-106); Hematocrit-VBG 38 % (42.0-52.0); Hemoglobin (Hb) 12.8 g/dL (12.6-17.4); Potassium (VBG) 5.14 mmol/L (3.70-5.30); Sodium 138 mmol/L (133-146)
[2024-10-30 16:54] LABS: Puncture Site RR
[2024-10-30 16:55] LABS: ALV-art Gradient 53.400 mmHg (0-20)
[2024-10-30] MEDS: Famotidine/PF 20 mg/2ml Vial SLOW IVP SCH (20:25)
[2024-10-30 22:23] LABS: Anion Gap 19 mmol/L (10-20); BUN (Urea Nitrogen) 30 mg/dL (8.4-25.7); Calc. Creatinine Clearance 13 mL/min (70-130); Calcium 8.0 mg/dL (7.8-10.44); Carbon Dioxide 28 mmol/L (23-31); Chloride 100 mmol/L (98-107); Glucose 134 mg/dL (83-110); Potassium 5.5 mmol/L (3.5-5.1); Sodium 141 mmol/L (136-145)
[2024-10-30 23:02] LABS: Actual Bicarbonate (HCO3a) 30.9 mEq/L (22-28); Base Excess (BEa) 2.2 mEq/L (-2.0 to +3.0); Calcium, Ionized (arterial) 1.07 mmol/L (1.12-1.30); Hematocrit-ABG 33 % (42.0-52.0); Hemoglobin (Hb) 11.2 g/dL (14.0-18.0); O2 Tension (PaO2), arterial 82.4 mmHg (> 70.0); Potassium - ABG Lab 5.24 mmol/L (3.70-5.30); pH, Arterial 7.256 (7.35-7.45)
[2024-10-30 23:03] LABS: ALV-art Gradient 78.400 mmHg (0-20); CO2 Tension 71.0 mmHg (35.0-45.0); Puncture Site Right Radial artery
[2024-10-31] MEDS: Dextrose 50% Abboject 50 ML SYRINGE SLOW IVP PRN (01:40)
[2024-10-31] MEDS ORDERED: Heparin 10,000 UNITS/ 10 ML VIAL SLOW IVP SCH (03:00)
[2024-10-31 05:07] LABS: #Basophils Less than 0.03 10x3/uL (0.0-0.2); #Eosinophils Less than 0.03 10x3/uL (0.0-0.7); #Monocytes 0.16 10x3/uL (0.11-0.59); #Neutrophils 6.19 10x3/uL (1.40-6.50); %Basophils 0.1 % (0.0-1.0); %Eosinophils 0.0 % (0.0-10.0); %Lymphocytes 8.7 % (21.0-51.0); %Monocytes 2.3 % (0.0-10.0); %Neutrophils 88.5 % (42.0-75.0); Hematocrit 35.4 % (42.0-52.0); Hemoglobin 11.2 g/dL (14.0-18.0); Mean Corpuscular Hemoglobin 28.9 pg (27.0-31.0); Mean Corpuscular Volume 91.5 fL (78.0-98.0); Platelet Count 153 10x3/uL (130-400); Red Blood Cell (RBC) Count 3.87 mill/uL (4.70-6.10); White Blood Cell (WBC) Count 7.00 10x3/uL (4.8-10.8)
[2024-10-31 05:17] LABS: ALT (SGPT) 19 U/L (Less than 45); AST (SGOT) 28 U/L (11-34); Albumin 3.5 g/dL (3.1-4.5); Alkaline Phosphatase 111 U/L (40-110); Anion Gap 16 mmol/L (10-20); BUN (Urea Nitrogen) 16 mg/dL (8.4-25.7); Bilirubin, Total 0.4 mg/dL (0.3-1.2); Calc. Creatinine Clearance 20 mL/min (70-130); Calcium 8.2 mg/dL (7.8-10.44); Carbon Dioxide 28 mmol/L (23-31); Chloride 100 mmol/L (98-107); Globulin 4.4 g/dL (2.4-3.5); Glucose 154 mg/dL (83-110); Potassium 4.5 mmol/L (3.5-5.1); Sodium 139 mmol/L (136-145)
[2024-10-31] MEDS: Aspirin Chewable 81 MG TAB PO SCH (08:19)
[2024-10-31 09:19] LABS: CO2 Tension 101.8 mmHg (35.0-45.0); pH, Arterial 7.142 (7.35-7.45)
[2024-10-31 09:31] LABS: Actual Bicarbonate (HCO3v) 32.9 mEq/L (22-28); Base Excess 2.7 mEq/L (-2.0 to +3.0); Calcium, Ionized (venous) 1.02 mmol/L (1.16-1.32); Chloride (VBG) 98 mmol/L (98-106); Hematocrit-VBG 36 % (42.0-52.0); Hemoglobin (Hb) 12.3 g/dL (12.6-17.4); Potassium (VBG) 5.04 mmol/L (3.70-5.30); Sodium 137 mmol/L (133-146)
[2024-11-01 04:09] LABS: #Basophils Less than 0.03 10x3/uL (0.0-0.2); #Eosinophils Less than 0.03 10x3/uL (0.0-0.7); #Monocytes 0.25 10x3/uL (0.11-0.59); #Neutrophils 5.52 10x3/uL (1.40-6.50); %Basophils 0.2 % (0.0-1.0); %Eosinophils 0.2 % (0.0-10.0); %Lymphocytes 11.8 % (21.0-51.0); %Monocytes 3.8 % (0.0-10.0); %Neutrophils 83.5 % (42.0-75.0); Hematocrit 35.6 % (42.0-52.0); Hemoglobin 11.5 g/dL (14.0-18.0); Mean Corpuscular Hemoglobin 29.8 pg (27.0-31.0); Mean Corpuscular Volume 92.2 fL (78.0-98.0); Platelet Count 182 10x3/uL (130-400); Red Blood Cell (RBC) Count 3.86 mill/uL (4.70-6.10); White Blood Cell (WBC) Count 6.60 10x3/uL (4.8-10.8)
[2024-11-01 05:02] LABS: ALT (SGPT) 19 U/L (Less than 45); AST (SGOT) 32 U/L (11-34); Albumin 3.5 g/dL (3.1-4.5); Alkaline Phosphatase 99 U/L (40-110); Anion Gap 19 mmol/L (10-20); BUN (Urea Nitrogen) 31 mg/dL (8.4-25.7); Bilirubin, Total 0.3 mg/dL (0.3-1.2); Calc. Creatinine Clearance 13 mL/min (70-130); Calcium 8.4 mg/dL (7.8-10.44); Carbon Dioxide 23 mmol/L (23-31); Chloride 98 mmol/L (98-107); Globulin 4.5 g/dL (2.4-3.5); Glucose 157 mg/dL (83-110); Potassium 6.0 mmol/L (3.5-5.1); Sodium 134 mmol/L (136-145)
[2024-11-01] MEDS: CALCIUM GLUC 1 GM/NS 50 ML 1 GM in Premix 1 BAG IVPB SCH (06:28)
[2024-11-01] MEDS: LOKELMA 10 GM PACKET PO SCH (06:30)
[2024-11-01] MEDS: Dextrose 50% Abboject 50 ML SYRINGE SLOW IVP PRN (06:51)
[2024-11-01] MEDS: Sodium Bicarb 50 MEQ/50 ML Abboject 8.4% SYRINGE IVP SCH (07:02)
[2024-11-01 08:12] LABS: Actual Bicarbonate (HCO3a) 28.9 mEq/L (22-28); Base Excess (BEa) -1.9 mEq/L (-2.0 to +3.0); Calcium, Ionized (arterial) 1.14 mmol/L (1.12-1.30); Hematocrit-ABG 34 % (42.0-52.0); Hemoglobin (Hb) 11.5 g/dL (14.0-18.0); O2 Tension (PaO2), arterial 71.7 mmHg (> 70.0); Potassium - ABG Lab 4.90 mmol/L (3.70-5.30)
[2024-11-01 08:17] LABS: CO2 Tension 87.0 mmHg (35.0-45.0); pH, Arterial 7.139 (7.35-7.45)
[2024-11-01 08:18] LABS: ALV-art Gradient 69.100 mmHg (0-20); Puncture Site Right Radial artery
[2024-11-01] MEDS ORDERED: Heparin 10,000 UNITS/ 10 ML VIAL ONE (10:37)
[2024-11-01] MEDS: Famotidine/PF 20 mg/2ml Vial SLOW IVP SCH (20:01)
[2024-11-02 05:25] LABS: #Basophils Less than 0.03 10x3/uL (0.0-0.2); #Eosinophils Less than 0.03 10x3/uL (0.0-0.7); #Monocytes 0.32 10x3/uL (0.11-0.59); #Neutrophils 4.95 10x3/uL (1.40-6.50); %Basophils 0.0 % (0.0-1.0); %Eosinophils 0.0 % (0.0-10.0); %Lymphocytes 9.3 % (21.0-51.0); %Monocytes 5.5 % (0.0-10.0); %Neutrophils 84.9 % (42.0-75.0); Hematocrit 37.7 % (42.0-52.0); Hemoglobin 12.0 g/dL (14.0-18.0); Mean Corpuscular Hemoglobin 29.0 pg (27.0-31.0); Mean Corpuscular Volume 91.1 fL (78.0-98.0); Platelet Count 137 10x3/uL (130-400); Red Blood Cell (RBC) Count 4.14 mill/uL (4.70-6.10); White Blood Cell (WBC) Count 5.83 10x3/uL (4.8-10.8)
[2024-11-02 05:30] LABS: ALT (SGPT) 18 U/L (Less than 45); AST (SGOT) 20 U/L (11-34); Albumin 3.4 g/dL (3.1-4.5); Alkaline Phosphatase 94 U/L (40-110); Anion Gap 7 mmol/L (10-20); BUN (Urea Nitrogen) 33 mg/dL (8.4-25.7); Bilirubin, Total 0.3 mg/dL (0.3-1.2); Calc. Creatinine Clearance 13 mL/min (70-130); Calcium 8.5 mg/dL (7.8-10.44); Carbon Dioxide 29 mmol/L (23-31); Chloride 104 mmol/L (98-107); Globulin 4.1 g/dL (2.4-3.5); Glucose 152 mg/dL (83-110); Potassium 5.1 mmol/L (3.5-5.1); Sodium 135 mmol/L (136-145)
[2024-11-02 09:12] LABS: Actual Bicarbonate (HCO3a) 31.2 mEq/L (22-28); Base Excess (BEa) 1.4 mEq/L (-2.0 to +3.0); Calcium, Ionized (arterial) 1.10 mmol/L (1.12-1.30); Hematocrit-ABG 36 % (42.0-52.0); Hemoglobin (Hb) 12.3 g/dL (14.0-18.0); O2 Tension (PaO2), arterial 89.5 mmHg (> 70.0); Potassium - ABG Lab 4.92 mmol/L (3.70-5.30); pH, Arterial 7.211 (7.35-7.45)
[2024-11-02 09:17] LABS: CO2 Tension 79.7 mmHg (35.0-45.0)
[2024-11-03 03:05] LABS: #Basophils Less than 0.03 10x3/uL (0.0-0.2); #Eosinophils Less than 0.03 10x3/uL (0.0-0.7); #Monocytes 0.33 10x3/uL (0.11-0.59); #Neutrophils 6.23 10x3/uL (1.40-6.50); %Basophils 0.1 % (0.0-1.0); %Eosinophils 0.0 % (0.0-10.0); %Lymphocytes 7.6 % (21.0-51.0); %Monocytes 4.6 % (0.0-10.0); %Neutrophils 87.3 % (42.0-75.0); Hematocrit 36.6 % (42.0-52.0); Hemoglobin 12.0 g/dL (14.0-18.0); Mean Corpuscular Hemoglobin 28.7 pg (27.0-31.0); Mean Corpuscular Volume 87.6 fL (78.0-98.0); Platelet Count 149 10x3/uL (130-400); Red Blood Cell (RBC) Count 4.18 mill/uL (4.70-6.10); White Blood Cell (WBC) Count 7.14 10x3/uL (4.8-10.8)
[2024-11-03 03:23] LABS: ALT (SGPT) 18 U/L (Less than 45); AST (SGOT) 18 U/L (11-34); Albumin 3.3 g/dL (3.1-4.5); Alkaline Phosphatase 95 U/L (40-110); Anion Gap 17 mmol/L (10-20); BUN (Urea Nitrogen) 53 mg/dL (8.4-25.7); Bilirubin, Total 0.4 mg/dL (0.3-1.2); Calc. Creatinine Clearance 11 mL/min (70-130); Calcium 8.6 mg/dL (7.8-10.44); Carbon Dioxide 28 mmol/L (23-31); Chloride 96 mmol/L (98-107); Globulin 4.4 g/dL (2.4-3.5); Glucose 158 mg/dL (83-110); Potassium 4.9 mmol/L (3.5-5.1); Sodium 136 mmol/L (136-145)
[2024-11-04 05:07] LABS: #Basophils Less than 0.03 10x3/uL (0.0-0.2); #Eosinophils Less than 0.03 10x3/uL (0.0-0.7); #Monocytes 0.44 10x3/uL (0.11-0.59); #Neutrophils 6.56 10x3/uL (1.40-6.50); %Basophils 0.0 % (0.0-1.0); %Eosinophils 0.0 % (0.0-10.0); %Lymphocytes 8.4 % (21.0-51.0); %Monocytes 5.7 % (0.0-10.0); %Neutrophils 85.1 % (42.0-75.0); Hematocrit 35.4 % (42.0-52.0); Hemoglobin 11.6 g/dL (14.0-18.0); Mean Corpuscular Hemoglobin 28.7 pg (27.0-31.0); Mean Corpuscular Volume 87.6 fL (78.0-98.0); Platelet Count 156 10x3/uL (130-400); Red Blood Cell (RBC) Count 4.04 mill/uL (4.70-6.10); White Blood Cell (WBC) Count 7.71 10x3/uL (4.8-10.8)
[2024-11-04 05:12] VITALS: BMI 27.0
[2024-11-04 05:49] LABS: ALT (SGPT) 16 U/L (Less than 45); AST (SGOT) 16 U/L (11-34); Albumin 3.1 g/dL (3.1-4.5); Alkaline Phosphatase 82 U/L (40-110); Anion Gap 17 mmol/L (10-20); BUN (Urea Nitrogen) 47 mg/dL (8.4-25.7); Bilirubin, Total 0.5 mg/dL (0.3-1.2); Calc. Creatinine Clearance 13 mL/min (70-130); Calcium 8.2 mg/dL (7.8-10.44); Carbon Dioxide 28 mmol/L (23-31); Chloride 95 mmol/L (98-107); Globulin 3.7 g/dL (2.4-3.5); Glucose 193 mg/dL (83-110); Potassium 4.4 mmol/L (3.5-5.1); Sodium 136 mmol/L (136-145)
[2024-11-05 03:09] LABS: #Basophils Less than 0.03 10x3/uL (0.0-0.2); #Eosinophils Less than 0.03 10x3/uL (0.0-0.7); #Monocytes 1.19 10x3/uL (0.11-0.59); #Neutrophils 9.86 10x3/uL (1.40-6.50); %Basophils 0.1 % (0.0-1.0); %Eosinophils 0.2 % (0.0-10.0); %Lymphocytes 10.2 % (21.0-51.0); %Monocytes 9.6 % (0.0-10.0); %Neutrophils 79.3 % (42.0-75.0); Hematocrit 35.9 % (42.0-52.0); Hemoglobin 12.1 g/dL (14.0-18.0); Mean Corpuscular Hemoglobin 29.5 pg (27.0-31.0); Mean Corpuscular Volume 87.6 fL (78.0-98.0); Platelet Count 146 10x3/uL (130-400); Red Blood Cell (RBC) Count 4.10 mill/uL (4.70-6.10); White Blood Cell (WBC) Count 12.41 10x3/uL (4.8-10.8)
[2024-11-05 03:37] LABS: ALT (SGPT) 16 U/L (Less than 45); AST (SGOT) 18 U/L (11-34); Albumin 2.7 g/dL (3.1-4.5); Alkaline Phosphatase 77 U/L (40-110); Anion Gap 18 mmol/L (10-20); BUN (Urea Nitrogen) 72 mg/dL (8.4-25.7); Bilirubin, Total 0.4 mg/dL (0.3-1.2); Calc. Creatinine Clearance 10 mL/min (70-130); Calcium 8.1 mg/dL (7.8-10.44); Carbon Dioxide 22 mmol/L (23-31); Chloride 95 mmol/L (98-107); Globulin 3.6 g/dL (2.4-3.5); Glucose 162 mg/dL (83-110); Potassium 4.4 mmol/L (3.5-5.1); Sodium 131 mmol/L (136-145)
[2024-11-05 11:05] LABS: T4 4.78 ug/dL (4.87-11.72); Thyroid Stimulating Hormone 0.2104 uIU/mL (0.35-4.94)
[2024-11-05] MEDS: Albumin 25% 25 GM (100 mL) BOT IVPB SCH (14:36)
[2024-11-05] MEDS: Enoxaparin 80 MG (0.8 mL) SYRINGE SC SCH (22:42)
[2024-11-06 05:28] LABS: ALT (SGPT) 15 U/L (Less than 45); AST (SGOT) 15 U/L (11-34); Albumin 3.1 g/dL (3.1-4.5); Alkaline Phosphatase 59 U/L (40-110); Anion Gap 15 mmol/L (10-20); BUN (Urea Nitrogen) 54 mg/dL (8.4-25.7); Bilirubin, Total 0.5 mg/dL (0.3-1.2); Calc. Creatinine Clearance 13 mL/min (70-130); Calcium 7.8 mg/dL (7.8-10.44); Carbon Dioxide 28 mmol/L (23-31); Chloride 95 mmol/L (98-107); Globulin 2.7 g/dL (2.4-3.5); Glucose 100 mg/dL (83-110); Potassium 4.0 mmol/L (3.5-5.1); Sodium 134 mmol/L (136-145)
[2024-11-06 05:31] LABS: #Basophils Less than 0.03 10x3/uL (0.0-0.2); #Eosinophils 0.06 10x3/uL (0.0-0.7); #Monocytes 0.74 10x3/uL (0.11-0.59); #Neutrophils 5.92 10x3/uL (1.40-6.50); %Basophils 0.1 % (0.0-1.0); %Eosinophils 0.7 % (0.0-10.0); %Lymphocytes 19.3 % (21.0-51.0); %Monocytes 8.9 % (0.0-10.0); %Neutrophils 70.8 % (42.0-75.0); Hematocrit 27.8 % (42.0-52.0); Hemoglobin 9.2 g/dL (14.0-18.0); Mean Corpuscular Hemoglobin 28.8 pg (27.0-31.0); Mean Corpuscular Volume 86.9 fL (78.0-98.0); Platelet Count 116 10x3/uL (130-400); Red Blood Cell (RBC) Count 3.20 mill/uL (4.70-6.10); White Blood Cell (WBC) Count 8.36 10x3/uL (4.8-10.8)
[2024-11-06 05:57] LABS: Platelet Adequacy Comment Platelets Decreased; Smudge Cells 2.0 %; Stomatocytes SLIGHT = 2-5 cells HPF (0-1); Target Cells SLIGHT = 2-5 cells HPF (0-1)
[2024-11-06 11:01] LABS: #Basophils Less than 0.03 10x3/uL (0.0-0.2); #Eosinophils 0.08 10x3/uL (0.0-0.7); #Monocytes 0.82 10x3/uL (0.11-0.59); #Neutrophils 6.38 10x3/uL (1.40-6.50); %Basophils 0.1 % (0.0-1.0); %Eosinophils 0.9 % (0.0-10.0); %Lymphocytes 16.6 % (21.0-51.0); %Monocytes 9.3 % (0.0-10.0); %Neutrophils 72.5 % (42.0-75.0); Hematocrit 26.8 % (42.0-52.0); Hemoglobin 9.1 g/dL (14.0-18.0); Mean Corpuscular Hemoglobin 29.4 pg (27.0-31.0); Mean Corpuscular Volume 86.5 fL (78.0-98.0); Platelet Count 114 10x3/uL (130-400); Red Blood Cell (RBC) Count 3.10 mill/uL (4.70-6.10); White Blood Cell (WBC) Count 8.80 10x3/uL (4.8-10.8)
[2024-11-06 15:02] VITALS: BMI 26.8
[2024-11-06] MEDS: DOBUTamine 500 mg/250 ml 500 MG in Premix 1 BAG IVPB SCH (18:35)
[2024-11-06] MEDS ORDERED: Apixaban 5 MG TAB PO SCH (21:00)
[2024-11-07 05:18] LABS: ALT (SGPT) 14 U/L (Less than 45); AST (SGOT) 14 U/L (11-34); Albumin 3.1 g/dL (3.1-4.5); Alkaline Phosphatase 70 U/L (40-110); Anion Gap 11 mmol/L (10-20); BUN (Urea Nitrogen) 82 mg/dL (8.4-25.7); Bilirubin, Total 0.6 mg/dL (0.3-1.2); Calc. Creatinine Clearance 10 mL/min (70-130); Calcium 7.8 mg/dL (7.8-10.44); Carbon Dioxide 25 mmol/L (23-31); Chloride 100 mmol/L (98-107); Globulin 2.7 g/dL (2.4-3.5); Glucose 140 mg/dL (83-110); Potassium 3.7 mmol/L (3.5-5.1); Sodium 132 mmol/L (136-145)
[2024-11-07 05:35] LABS: Platelet Adequacy Comment Platelets Decreased; RBC Morphology Within Normal Limits; Smudge Cells 4.0 %
[2024-11-07 05:45] LABS: Hematocrit 26.5 % (42.0-52.0); Hemoglobin 9.1 g/dL (14.0-18.0); Mean Corpuscular Hemoglobin 29.1 pg (27.0-31.0); Mean Corpuscular Volume 85.1 fL (78.0-98.0); Platelet Count 112 10x3/uL (130-400); Red Blood Cell (RBC) Count 3.09 mill/uL (4.70-6.10); White Blood Cell (WBC) Count 8.87 10x3/uL (4.8-10.8)
[2024-11-07] MEDS: EPOETIN ALFA-EPBX (ESRD) 10,000 UNITS/ML VIAL IVP SCH (09:24)
[2024-11-07 10:46] VITALS: BP 123/65
[2024-11-07 21:10] VITALS: TEMP 98.4
== END 2024-11-07 21:05 | disposition short-term general hospital (02) | DRG 291 ==
LOC: 2NO 22:59 → OBSVTOIN 10-30 00:15 → IMCU/EMU 10-30 12:43
PROVIDERS: ADMIT Family Medicine; ATTEND Family Medicine
PROC: 5A1D70Z Performance of Urinary Filtration, Intermittent, Less than 6 Hours Per Day (ICD-10-PCS; principal; 2024-10-30)
PROC: 4A133R1 Monitoring of Arterial Saturation, Peripheral, Percutaneous Approach (ICD-10-PCS; 2024-10-30)
PROC: 5A09357 Assistance with Respiratory Ventilation, Less than 24 Consecutive Hours, Continuous Positive Airway Pressure (ICD-10-PCS; 2024-10-30)
DX: I13.2 Hypertensive heart and chronic kidney disease with heart failure and with stage 5 chronic kidney disease, or end stage renal disease (principal); G93.41 Metabolic encephalopathy; I50.33 Acute on chronic diastolic (congestive) heart failure; J96.21 Acute and chronic respiratory failure with hypoxia; N18.6 End stage renal disease; J96.22 Acute and chronic respiratory failure with hypercapnia; J44.1 Chronic obstructive pulmonary disease with (acute) exacerbation; M84.48XA Pathological fracture, other site, initial encounter for fracture; E66.2 Morbid (severe) obesity with alveolar hypoventilation; I82.431 Acute embolism and thrombosis of right popliteal vein; D63.1 Anemia in chronic kidney disease; F17.210 Nicotine dependence, cigarettes, uncomplicated; I95.9 Hypotension, unspecified; E87.5 Hyperkalemia; E11.22 Type 2 diabetes mellitus with diabetic chronic kidney disease; E78.5 Hyperlipidemia, unspecified; R00.1 Bradycardia, unspecified; I44.0 Atrioventricular block, first degree; Z99.2 Dependence on renal dialysis; Z99.81 Dependence on supplemental oxygen; Z91.041 Radiographic dye allergy status; Z79.899 Other long term (current) drug therapy; Z79.51 Long term (current) use of inhaled steroids; Z68.26 Body mass index [BMI] 26.0-26.9, adult
CPT/HCPCS: 36415; 36416; 36600; 71045; 72157; 80053; 82805; 83605; 83735; 83880; 84145; 84436; 84443; 84484; 85025; 85610; 85730; 86141; 86704; 86706; 86803; 87040; 87340; 93005; 93010; 93306; 94640; 94660; 96372; 96374; J0461; J0613; J1250; J1265; J1644; J1650; J1815; J1940; J2919; J7620; J7999; P9047; Q5105

== ENCOUNTER 2025-01-14 23:15 | Inpatient (IN) | payer OTHER ==
[2025-01-15] MEDS ORDERED: Nitroglycerin 2% Ointment 1 INCH/1 GM Packet ONE (02:10)
[2025-01-15 02:14] LABS: Actual Bicarbonate (HCO3a) 32.0 mEq/L (22-28); Analyzer IN Cardio ER; Base Excess (BEa) 1.0 mEq/L (-2.0 to +3.0); Calcium, Ionized (arterial) 1.06 mmol/L (1.12-1.30); Hematocrit-ABG 33 % (42.0-52.0); Hemoglobin (Hb) 11.3 g/dL (14.0-18.0); O2 Tension (PaO2), arterial 206.4 mmHg (> 70.0); Potassium - ABG Lab 4.72 mmol/L (3.70-5.30)
[2025-01-15 02:15] LABS: pH, Arterial 7.149 (7.35-7.45)
[2025-01-15 02:16] LABS: ALV-art Gradient 246.375 mmHg (0-20); CO2 Tension 94.1 mmHg (35.0-45.0); Puncture Site Right Radial artery
[2025-01-15 02:37] LABS: ALT (SGPT) 10 U/L (Less than 45); AST (SGOT) 22 U/L (11-34); Albumin 3.2 g/dL (3.1-4.5); Alkaline Phosphatase 98 U/L (40-110); Anion Gap 20 mmol/L (10-20); BUN (Urea Nitrogen) 22 mg/dL (8.4-25.7); Bilirubin, Total 0.3 mg/dL (0.3-1.2); Calc. Creatinine Clearance 0 mL/min (70-130); Calcium 8.4 mg/dL (7.8-10.44); Carbon Dioxide 26 mmol/L (23-31); Chloride 96 mmol/L (98-107); Globulin 4.8 g/dL (2.4-3.5); Glucose 165 mg/dL (83-110); Potassium 5.0 mmol/L (3.5-5.1); Sodium 137 mmol/L (136-145)
[2025-01-15 05:26] LABS: Actual Bicarbonate (HCO3a) 35.5 mEq/L (22-28); Analyzer IN Cardio ER; Base Excess (BEa) 3.4 mEq/L (-2.0 to +3.0); Calcium, Ionized (arterial) 1.12 mmol/L (1.12-1.30); Hematocrit-ABG 34 % (42.0-52.0); Hemoglobin (Hb) 11.6 g/dL (14.0-18.0); O2 Tension (PaO2), arterial 113.4 mmHg (> 70.0); Potassium - ABG Lab 4.93 mmol/L (3.70-5.30)
[2025-01-15 05:27] LABS: pH, Arterial 7.126 (7.35-7.45)
[2025-01-15 05:28] LABS: CO2 Tension 110.1 mmHg (35.0-45.0); Puncture Site Right Radial artery
[2025-01-15 05:29] LABS: ALV-art Gradient 105.475 mmHg (0-20)
[2025-01-15] MEDS ORDERED: Rocuronium Bromide 10 MG/ML (10ML VIAL) ONE (05:32)
[2025-01-15] MEDS ORDERED: Etomidate 40 MG (20 mL) VIAL ONE (05:32)
[2025-01-15] MEDS ORDERED: Dextrose 50% Abboject 50 ML SYRINGE SLOW IVP PRN (06:23)
[2025-01-15] MEDS ORDERED: Glucagon 1 MG/ML KIT IM PRN (06:23)
[2025-01-15] MEDS: Ventilator Sedation Protocol 1 EACH FS ONE (06:40)
[2025-01-15] MEDS ORDERED: Propofol BOLUS 1,000 MG/100 ML VIAL IV PRN (06:45)
[2025-01-15] MEDS ORDERED: Fentanyl BOLUS 100 ML IVPB PRN (06:45)
[2025-01-15] MEDS ORDERED: DISCONTINUE PREVIOUS NARCOTIC PAIN MEDICATIONS AND BENZODIAZEPINES FS SCH (06:45)
[2025-01-15] MEDS: Magnesium 2 GM/50 ML(in water) 2 GM in Premix 1 BAG IVPB SCH (06:50)
[2025-01-15] MEDS ORDERED: hydrALAZINE 20 MG/ML VIAL SLOW IVP PRN (06:59)
[2025-01-15] MEDS ORDERED: Famotidine/PF 20 mg/2ml Vial SLOW IVP SCH (09:00)
[2025-01-15] MEDS: Heparin 5,000 UNITS/ML VIAL SC SCH (11:14)
[2025-01-15] MEDS: Famotidine/PF 20 mg/2ml Vial SLOW IVP SCH (11:15)
[2025-01-16 03:45] LABS: #Basophils Less than 0.03 10x3/uL (0.0-0.2); #Eosinophils Less than 0.03 10x3/uL (0.0-0.7); #Monocytes 0.35 10x3/uL (0.11-0.59); #Neutrophils 7.00 10x3/uL (1.40-6.50); %Basophils 0.1 % (0.0-1.0); %Eosinophils 0.0 % (0.0-10.0); %Lymphocytes 8.0 % (21.0-51.0); %Monocytes 4.4 % (0.0-10.0); %Neutrophils 87.1 % (42.0-75.0); Hematocrit 28.4 % (42.0-52.0); Hemoglobin 9.3 g/dL (14.0-18.0); Mean Corpuscular Hemoglobin 28.5 pg (27.0-31.0); Mean Corpuscular Volume 87.1 fL (78.0-98.0); Platelet Count 144 10x3/uL (130-400); Red Blood Cell (RBC) Count 3.26 mill/uL (4.70-6.10); White Blood Cell (WBC) Count 8.03 10x3/uL (4.8-10.8)
[2025-01-16 04:07] LABS: ALT (SGPT) 12 U/L (Less than 45); AST (SGOT) 18 U/L (11-34); Albumin 2.7 g/dL (3.1-4.5); Alkaline Phosphatase 81 U/L (40-110); Anion Gap 18 mmol/L (10-20); BUN (Urea Nitrogen) 33 mg/dL (8.4-25.7); Bilirubin, Total 0.3 mg/dL (0.3-1.2); Calc. Creatinine Clearance 14 mL/min (70-130); Calcium 8.5 mg/dL (7.8-10.44); Carbon Dioxide 26 mmol/L (23-31); Chloride 94 mmol/L (98-107); Globulin 4.1 g/dL (2.4-3.5); Glucose 168 mg/dL (83-110); Potassium 3.9 mmol/L (3.5-5.1); Sodium 134 mmol/L (136-145)
[2025-01-16 05:08] VITALS: BMI 24.7
[2025-01-16 06:58] LABS: Actual Bicarbonate (HCO3a) 28.4 mEq/L (22-28); Base Excess (BEa) 4.3 mEq/L (-2.0 to +3.0); CO2 Tension 40.9 mmHg (35.0-45.0); Calcium, Ionized (arterial) 1.07 mmol/L (1.12-1.30); Hematocrit-ABG 31 % (42.0-52.0); Hemoglobin (Hb) 10.4 g/dL (14.0-18.0); O2 Tension (PaO2), arterial 79.3 mmHg (> 70.0); Potassium - ABG Lab 3.94 mmol/L (3.70-5.30); pH, Arterial 7.460 (7.35-7.45)
[2025-01-16 07:04] LABS: Puncture Site Right Radial artery
[2025-01-16] MEDS: Apixaban 5 MG TAB PO SCH (08:54)
[2025-01-16] MEDS: EPOETIN ALFA-EPBX (ESRD) 10,000 UNITS/ML VIAL IVP SCH (08:54)
[2025-01-16] MEDS: Famotidine 20 MG TAB PO SCH (08:55)
[2025-01-16 10:16] VITALS: BMI 24.7
[2025-01-16] MEDS: Mupirocin 1 GM TUBE NASAL DECOLONIZATION TP SCH (14:50)
[2025-01-16] MEDS: Mupirocin 1 GM TUBE NASAL DECOLOIZATION TP SCH (20:00)
[2025-01-17 04:53] LABS: ALT (SGPT) 12 U/L (Less than 45); AST (SGOT) 18 U/L (11-34); Albumin 2.9 g/dL (3.1-4.5); Alkaline Phosphatase 104 U/L (40-110); Anion Gap 19 mmol/L (10-20); BUN (Urea Nitrogen) 36 mg/dL (8.4-25.7); Bilirubin, Total 0.3 mg/dL (0.3-1.2); Calc. Creatinine Clearance 16 mL/min (70-130); Calcium 8.5 mg/dL (7.8-10.44); Carbon Dioxide 27 mmol/L (23-31); Chloride 96 mmol/L (98-107); Globulin 4.3 g/dL (2.4-3.5); Glucose 314 mg/dL (83-110); Potassium 4.5 mmol/L (3.5-5.1); Sodium 137 mmol/L (136-145)
[2025-01-17 08:11] LABS: #Basophils Less than 0.03 10x3/uL (0.0-0.2); #Eosinophils Less than 0.03 10x3/uL (0.0-0.7); #Monocytes 0.47 10x3/uL (0.11-0.59); #Neutrophils 8.59 10x3/uL (1.40-6.50); %Basophils 0.1 % (0.0-1.0); %Eosinophils 0.0 % (0.0-10.0); %Lymphocytes 6.4 % (21.0-51.0); %Monocytes 4.8 % (0.0-10.0); %Neutrophils 88.3 % (42.0-75.0); Hematocrit 31.4 % (42.0-52.0); Hemoglobin 10.1 g/dL (14.0-18.0); Mean Corpuscular Hemoglobin 28.5 pg (27.0-31.0); Mean Corpuscular Volume 88.5 fL (78.0-98.0); Platelet Count 170 10x3/uL (130-400); Red Blood Cell (RBC) Count 3.55 mill/uL (4.70-6.10); White Blood Cell (WBC) Count 9.73 10x3/uL (4.8-10.8)
[2025-01-18 06:51] LABS: ALT (SGPT) 15 U/L (Less than 45); AST (SGOT) 23 U/L (11-34); Albumin 3.0 g/dL (3.1-4.5); Alkaline Phosphatase 102 U/L (40-110); Anion Gap 20 mmol/L (10-20); BUN (Urea Nitrogen) 60 mg/dL (8.4-25.7); Bilirubin, Total 0.3 mg/dL (0.3-1.2); Calc. Creatinine Clearance 11 mL/min (70-130); Calcium 8.5 mg/dL (7.8-10.44); Carbon Dioxide 23 mmol/L (23-31); Chloride 96 mmol/L (98-107); Globulin 4.5 g/dL (2.4-3.5); Glucose 210 mg/dL (83-110); Potassium 5.2 mmol/L (3.5-5.1); Sodium 134 mmol/L (136-145)
[2025-01-18 08:07] VITALS: TEMP 97.9
[2025-01-18] MEDS: Aspirin 81 mg Enteric Coated Tablet PO SCH (11:33)
[2025-01-18 15:50] VITALS: BP 118/67
== END 2025-01-18 15:59 | disposition home or self-care (01) | DRG 208 ==
LOC: ERS 23:15 → ERHOLD 01-15 03:26 → CCU 01-15 06:38 → T4-A 01-16 17:05
PROVIDERS: ADMIT Family Medicine; ATTEND Family Medicine
DX: J96.01 Acute respiratory failure with hypoxia (principal); N18.6 End stage renal disease; I13.2 Hypertensive heart and chronic kidney disease with heart failure and with stage 5 chronic kidney disease, or end stage renal disease; E87.29 Other acidosis; J44.1 Chronic obstructive pulmonary disease with (acute) exacerbation; I50.32 Chronic diastolic (congestive) heart failure; E87.1 Hypo-osmolality and hyponatremia; J96.02 Acute respiratory failure with hypercapnia; Z99.2 Dependence on renal dialysis; E11.22 Type 2 diabetes mellitus with diabetic chronic kidney disease; E11.649 Type 2 diabetes mellitus with hypoglycemia without coma; D63.1 Anemia in chronic kidney disease; E78.5 Hyperlipidemia, unspecified; Z95.0 Presence of cardiac pacemaker; Z86.718 Personal history of other venous thrombosis and embolism; E87.5 Hyperkalemia
CPT/HCPCS: 31500; 36415; 36416; 36600; 71045; 80053; 82805; 83036; 83880; 85025; 90935; 93005; 94002; 94003; 94660; 94760; 96372; G0257; J1308; J1644; J1815; J2250; J2354; J2704; J2919; J3475; Q5105